=== PATIENT | male | born 1960 | race Caucasian/White ===

== ENCOUNTER 2020-11-13 10:25 | Inpatient (IN) | payer MEDICAID, SELFPAY ==
[2020-11-13] VITALS (8 sets, daily range): BP systolic 117–148; BP diastolic 62–89; PULSE 87–122; RESP 14–18; TEMP 36.6–36.8; O2SAT 95–100; BMI 18.3
--- NOTE | 2020-11-13 13:29 | PC.NURSE ---
pt arrived to room from waiting room at 1328
--- NOTE | 2020-11-13 13:56 | W.ED.NAVMDI ---
Documented by User: CARLOS Velásquez 11/13/20 16:54 HPI - Nausea/Vomiting/Diarrhea General: Chief complaint: Nausea/Vomiting/Diarrhea Stated complaint: weak, N/V Time Seen by Provider: 11/13/20 13:27 History of Present Illness: HPI Narrative: Patient states he has had nausea for the last 2 or 3 months up to a year States is probably because of his teeth. Said he has had some weight loss also. Patient denies alcohol or drug use. Denies illness. And seeing a provider long time. Thinks he might be drinking too much [employer]. Denies problems of bowel or bladder fever chills or other related problems MD elicited complaint: nausea and vomiting (Sporadic) Onset (ago): month(s) Description of vomiting: food contents Associated nausea: Yes Associated abdominal pain: No Severity: mild Associated symtoms: Reports nausea; Denies anxiety, change in vision, chest pain or headache(s) Review of Systems Const: Denies: fever(s), chills or body aches Eyes: Denies: change in vision or blurry vision ENMT: Denies: throat pain or nasal congestion Card: Denies: chest pain or dyspnea on exertion Resp: Denies: dyspnea, productive cough or non-productive cough GI: Reports: nausea, vomiting and heartburn : Denies: difficulty urinating Musc: Denies: extremity pain Skin/Breast: Denies: rash Neuro: Denies: headache(s) Psych: Denies: anxiety or depression Giorgio/Lymph: Denies: easy bruising Physical Exam Const: COMMON NORMALS: no acute distress, average body habitus and patient oriented x3 HENMT: COMMON NORMALS: normocephalic HEAD & SCALP: normal to inspection and normocephalic FACE & SINUS: normal facial exam Eye: COMMON NORMALS: conjunctivae normal GENERAL EYE: appearance normal, both eyes and all related structures CONJUNCTIVA: Yes conjunctivae normal Neck/C-Spine: COMMON NORMALS: no JVD Chest: COMMONS NORMALS: normal inspection of the chest Resp: COMMON NORMALS: normal respiratory effort and clear to auscultation bilaterally AUSCULTATION: clear to auscultation bilaterally Cardio: COMMON NORMALS: no JVD, regular rate and regular rhythm RATE: regular rate RHYTHM: regular rhythm GI: COMMON NORMALS: Normal to inspection, nondistended, normoactive bowel sounds present Extremity: COMMON NORMALS: normal to inspection and full ROM Neuro: COMMON NORMALS: patient oriented x3 Course Vital Signs: Vital signs: Vital Signs Temperature 97.8 F 11/13/20 10:33 Pulse Rate 112 H 11/13/20 15:00 Respiratory Rate 16 11/13/20 15:00 Blood Pressure 124/70 11/13/20 15:00 Pulse Oximetry 95 11/13/20 15:00 MDM - Nausea/Vomiting/Diarrhea Lab Data: Labs: Lab Results 11/13/20 11/13/20 11/13/20 Range/Units 13:32 13:52 13:52 WBC 12.4 H (4.0-10.0) 10^3/ uL RBC 3.53 L (4.1-5.3) 10^6/u L Hgb 10.3 L (11.7-16.6) g/dL Hct 29.3 L (42.0-52.0) % MCV 83.0 (80-94) fL MCH 29.2 (28.0-34.0) pg MCHC 35.2 (30.0-36.0) g/dL RDW 14.8 (12.1-15.1) % Plt Count 230 (130-400) 10^3/c mm MPV 12.7 H (7.4-10.4) fL Neut % (Auto) 92.9 % Lymph % (Auto) 2.3 % Stokes % (Auto) 4.2 % Eos % (Auto) 0.0 % Baso % (Auto) 0.2 % Neut # (Auto) 11.56 H (1.8-7.7) 10^3/u L Lymph # (Auto) 0.3 L (0.8-4.8) 10^3/u L Stokes # (Auto) 0.5 (0.2-0.9) 10^3/u L Eos # (Auto) 0.0 (0.0-0.8) 10^3/u L Baso # (Auto) 0.0 (0.0-0.1) 10^3/u L Nucleated RBC % (a uto) 0 % Nucleated RBCs # 0.0 /100WBC Sodium 133 L (136-145) mmol/L Potassium 3.8 (3.5-5.1) mmol/L Chloride 88 L (98-107) mmol/L Carbon Dioxide 11 L (22-29) mmol/L Anion Gap 37.8 H (5-19) BUN 193 H* (8-23) mg/dL Creatinine 17.0 H* (0.7-1.2) mg/dL GFR Calculation 2.9 L (90-130) mL/min Glucose 136 H (65-115) mg/dL Calculated Osmolal ity 342 H (285-295) mOsm/k g Lactate (0.5-2.2) mmol/L Calcium 9.6 (8.5-10.5) mg/dL Total Bilirubin 0.4 (0.15-1.2) mg/dL AST 5 (0-40) U/L ALT < 5 (0-41) U/L Alkaline Phosphata se 84 (40-130) IU/L Total Protein 7.9 (6.6-8.7) g/dL Albumin 4.2 (3.5-5.2) g/dL Globulin 3.7 (1.3-4.6) g/dL Lipase 1285 H (13-60) U/L Urine Color (Yellow) Urine Appearance (CLEAR) Urine pH (5-7) Ur Specific Gravit y (1.005-1.030) Urine Protein (Negative) Urine Glucose (UA) (Normal) Urine Ketones (Negative) Urine Blood (Negative) Urine Nitrate (Negative) Urine Bilirubin (Negative) Urine Urobilinogen (Negative) mg/dL Ur Leukocyte Chiqui ase (Negative) SARS-CoV-2 Ag (Rap id) Negative (Negative) 11/13/20 11/13/20 Range/Units 13:52 14:48 WBC (4.0-10.0) 10^3/ uL RBC (4.1-5.3) 10^6/u L Hgb (11.7-16.6) g/dL Hct (42.0-52.0) % MCV (80-94) fL MCH (28.0-34.0) pg MCHC (30.0-36.0) g/dL RDW (12.1-15.1) % Plt Count (130-400) 10^3/c mm MPV (7.4-10.4) fL Neut % (Auto) % Lymph % (Auto) % Stokes % (Auto) % Eos % (Auto) % Baso % (Auto) % Neut # (Auto) (1.8-7.7) 10^3/u L Lymph # (Auto) (0.8-4.8) 10^3/u L Stokes # (Auto) (0.2-0.9) 10^3/u L Eos # (Auto) (0.0-0.8) 10^3/u L Baso # (Auto) (0.0-0.1) 10^3/u L Nucleated RBC % (a uto) % Nucleated RBCs # /100WBC Sodium (136-145) mmol/L Potassium (3.5-5.1) mmol/L Chloride (98-107) mmol/L Carbon Dioxide (22-29) mmol/L Anion Gap (5-19) BUN (8-23) mg/dL Creatinine (0.7-1.2) mg/dL GFR Calculation (90-130) mL/min Glucose (65-115) mg/dL Calculated Osmolal ity (285-295) mOsm/k g Lactate 1.2 (0.5-2.2) mmol/L Calcium (8.5-10.5) mg/dL Total Bilirubin (0.15-1.2) mg/dL AST (0-40) U/L ALT (0-41) U/L Alkaline Phosphata se (40-130) IU/L Total Protein (6.6-8.7) g/dL Albumin (3.5-5.2) g/dL Globulin (1.3-4.6) g/dL Lipase (13-60) U/L Urine Color Yellow (Yellow) Urine Appearance Clear (CLEAR) Urine pH 5 (5-7) Ur Specific Gravit y 1.010 (1.005-1.030) Urine Protein Neg (Negative) Urine Glucose (UA) Norm (Normal) Urine Ketones Negative (Negative) Urine Blood Neg (Negative) Urine Nitrate Negative (Negative) Urine Bilirubin Neg (Negative) Urine Urobilinogen Norm (Negative) mg/dL Ur Leukocyte Chiqui ase Negative (Negative) SARS-CoV-2 Ag (Rap id) (Negative) Discharge Plan Discharge Patient Disposition: Admitted As Inpatient Clinical Impression: 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, Acute renal failure, Enlarged prostate, Acute pancreatitis Condition: Stable Coding Level of Care Code ED Insurance Counsel for Chg Fwd Exam Comprehensive Documented by User: Bart Jensen MD 11/13/20 16:58 HPI - Nausea/Vomiting/Diarrhea General: Chief complaint: Nausea/Vomiting/Diarrhea Stated complaint: weak, N/V Time Seen by Provider: 11/13/20 13:27 Course Reevaluation(s): Reevaluation #1: I did discuss at length with patient about findings. He is agreeable for admission to the hospital. Time: 16:50 Consultations: Consultation #1: I did discuss at length with . Hospitalist he is accepted this patient for admission. He will see patient write additional orders. He request consult with Dr. Linda. Urology. Time: 16:50 Consultation #2: I did discuss at length with Dr. Linda. He will see patient as a behavioral health consultant. Vital Signs: Vital signs: Vital Signs Temperature 97.8 F 11/13/20 10:33 Pulse Rate 112 H 11/13/20 15:00 Respiratory Rate 16 11/13/20 15:00 Blood Pressure 124/70 11/13/20 15:00 Pulse Oximetry 95 11/13/20 15:00 MDM - Nausea/Vomiting/Diarrhea Medical Records: Attestation: I reviewed the patient's medical records. Lab Data: Attestation: I reviewed the patient's lab results. Labs: Lab Results 11/13/20 11/13/20 11/13/20 Range/Units 13:32 13:52 13:52 WBC 12.4 H (4.0-10.0) 10^3/ uL RBC 3.53 L (4.1-5.3) 10^6/u L Hgb 10.3 L (11.7-16.6) g/dL Hct 29.3 L (42.0-52.0) % MCV 83.0 (80-94) fL MCH 29.2 (28.0-34.0) pg MCHC 35.2 (30.0-36.0) g/dL RDW 14.8 (12.1-15.1) % Plt Count 230 (130-400) 10^3/c mm MPV 12.7 H (7.4-10.4) fL Neut % (Auto) 92.9 % Lymph % (Auto) 2.3 % Stokes % (Auto) 4.2 % Eos % (Auto) 0.0 % Baso % (Auto) 0.2 % Neut # (Auto) 11.56 H (1.8-7.7) 10^3/u L Lymph # (Auto) 0.3 L (0.8-4.8) 10^3/u L Stokes # (Auto) 0.5 (0.2-0.9) 10^3/u L Eos # (Auto) 0.0 (0.0-0.8) 10^3/u L Baso # (Auto) 0.0 (0.0-0.1) 10^3/u L Nucleated RBC % (a uto) 0 % Nucleated RBCs # 0.0 /100WBC Sodium 133 L (136-145) mmol/L Potassium 3.8 (3.5-5.1) mmol/L Chloride 88 L (98-107) mmol/L Carbon Dioxide 11 L (22-29) mmol/L Anion Gap 37.8 H (5-19) BUN 193 H* (8-23) mg/dL Creatinine 17.0 H* (0.7-1.2) mg/dL GFR Calculation 2.9 L (90-130) mL/min Glucose 136 H (65-115) mg/dL Calculated Osmolal ity 342 H (285-295) mOsm/k g Lactate (0.5-2.2) mmol/L Calcium 9.6 (8.5-10.5) mg/dL Total Bilirubin 0.4 (0.15-1.2) mg/dL AST 5 (0-40) U/L ALT < 5 (0-41) U/L Alkaline Phosphata se 84 (40-130) IU/L Total Protein 7.9 (6.6-8.7) g/dL Albumin 4.2 (3.5-5.2) g/dL Globulin 3.7 (1.3-4.6) g/dL Lipase 1285 H (13-60) U/L Urine Color (Yellow) Urine Appearance (CLEAR) Urine pH (5-7) Ur Specific Gravit y (1.005-1.030) Urine Protein (Negative) Urine Glucose (UA) (Normal) Urine Ketones (Negative) Urine Blood (Negative) Urine Nitrate (Negative) Urine Bilirubin (Negative) Urine Urobilinogen (Negative) mg/dL Ur Leukocyte Chiqui ase (Negative) SARS-CoV-2 Ag (Rap id) Negative (Negative) 11/13/20 11/13/20 Range/Units 13:52 14:48 WBC (4.0-10.0) 10^3/ uL RBC (4.1-5.3) 10^6/u L Hgb (11.7-16.6) g/dL Hct (42.0-52.0) % MCV (80-94) fL MCH (28.0-34.0) pg MCHC (30.0-36.0) g/dL RDW (12.1-15.1) % Plt Count (130-400) 10^3/c mm MPV (7.4-10.4) fL Neut % (Auto) % Lymph % (Auto) % Stokes % (Auto) % Eos % (Auto) % Baso % (Auto) % Neut # (Auto) (1.8-7.7) 10^3/u L Lymph # (Auto) (0.8-4.8) 10^3/u L Stokes # (Auto) (0.2-0.9) 10^3/u L Eos # (Auto) (0.0-0.8) 10^3/u L Baso # (Auto) (0.0-0.1) 10^3/u L Nucleated RBC % (a uto) % Nucleated RBCs # /100WBC Sodium (136-145) mmol/L Potassium (3.5-5.1) mmol/L Chloride (98-107) mmol/L Carbon Dioxide (22-29) mmol/L Anion Gap (5-19) BUN (8-23) mg/dL Creatinine (0.7-1.2) mg/dL GFR Calculation (90-130) mL/min Glucose (65-115) mg/dL Calculated Osmolal ity (285-295) mOsm/k g Lactate 1.2 (0.5-2.2) mmol/L Calcium (8.5-10.5) mg/dL Total Bilirubin (0.15-1.2) mg/dL AST (0-40) U/L ALT (0-41) U/L Alkaline Phosphata se (40-130) IU/L Total Protein (6.6-8.7) g/dL Albumin (3.5-5.2) g/dL Globulin (1.3-4.6) g/dL Lipase (13-60) U/L Urine Color Yellow (Yellow) Urine Appearance Clear (CLEAR) Urine pH 5 (5-7) Ur Specific Gravit y 1.010 (1.005-1.030) Urine Protein Neg (Negative) Urine Glucose (UA) Norm (Normal) Urine Ketones Negative (Negative) Urine Blood Neg (Negative) Urine Nitrate Negative (Negative) Urine Bilirubin Neg (Negative) Urine Urobilinogen Norm (Negative) mg/dL Ur Leukocyte Chiqui ase Negative (Negative) SARS-CoV-2 Ag (Rap id) (Negative) Imaging Data^: CT Abd/Pel: Attestation: I personally reviewed and interpreted this imaging study as follows: Radiologist's impression: FINDINGS: ABDOMEN: unenhanced liver, spleen, and pancreas are unremarkable. There are multiple containing cholesterol. The adrenal glands are unremarkable. There is profound bilateral obstructive uropathy. This is associated with gross dilatation of the urinary bladder which extends to the level of L4. No abdominal mass, adenopathy, free fluid, or focal fluid collection. No bowel abnormality. Normal appendix not readily identified. No bony abnormality. PELVIS: Grossly distended urinary bladder, markedly dilated distal ureters. Significantly enlarged prostate gland with a large median lobe. No other pelvic mass, adenopathy, or focal fluid collection, or free fluid. No bony abnormality. CT/CT abdomen pelvis wo con [id number] IMPRESSION: Profound bilateral obstructive uropathy secondary to gross bladder distention which may be due to prostatic hypertrophy, prostatic carcinoma, or a transitional cell carcinoma that is not appreciated on this unenhanced examination. Discharge Plan Discharge Patient Disposition: Admitted As Inpatient Clinical Impression: 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, Acute renal failure, Enlarged prostate, Acute pancreatitis Condition: Stable Coding Level of Care Code ED Insurance Counsel for Chg Fwd Exam Comprehensive
[2020-11-13] MEDS: sodium chloride 0.9% 1,000 ML 999 ML IV ×2 (14:03→14:42)
[2020-11-13] MEDS: ondansetron 2 mg/ML SDV 2 mL 4 MG IVP (14:03)
[2020-11-13 14:06] LABS: Basophils % 0.2 %; Hematocrit 29.3 % (42.0-52.0); Hemoglobin 10.3 g/dL (11.7-16.6); Lymphocytes # 0.3 10^3/uL (0.8-4.8); Lymphocytes % 2.3 %; Mean Corpuscular HGB Conc 35.2 g/dL (30.0-36.0); Mean Corpuscular Hemoglobin 29.2 pg (28.0-34.0); Mean Platelet Volume 12.7 fL (7.4-10.4); Monocytes # 0.5 10^3/uL (0.2-0.9); Monocytes % 4.2 %; Neutrophils # 11.56 10^3/uL (1.8-7.7); Neutrophils % 92.9 %; Nucleated Red Blood Cells % 0 %; Platelet Count 230 10^3/cmm (130-400); Red Blood Count 3.53 10^6/uL (4.1-5.3); Red Cell Distribution Width 14.8 % (12.1-15.1); White Blood Count 12.4 10^3/uL (4.0-10.0)
[2020-11-13] MEDS: lidocaine 2% viscous 15 ML, aluminum-mag hydrox-simethicon 30 ML, sucralfate oral liq 1 GM PO (14:11)
[2020-11-13 14:14] LABS: Lactate (Lactic Acid level) 1.2 mmol/L (0.5-2.2)
[2020-11-13 14:15] LABS: Alanine Aminotransferase < 5 U/L (0-41); Albumin Level 4.2 g/dL (3.5-5.2); Alkaline Phosphatase 84 IU/L (40-130); Anion Gap 37.8 (5-19); Aspartate Amino Transferase 5 U/L (0-40); Calcium 9.6 mg/dL (8.5-10.5); Carbon Dioxide 11 mmol/L (22-29); Chloride 88 mmol/L (98-107); Globulin 3.7 g/dL (1.3-4.6); Glomerular Filtration Rate 2.9 mL/min (90-130); Glucose 136 mg/dL (65-115); Potassium 3.8 mmol/L (3.5-5.1); Sodium 133 mmol/L (136-145); Total Bilirubin 0.4 mg/dL (0.15-1.2); Total Protein 7.9 g/dL (6.6-8.7)
--- NOTE | 2020-11-13 14:25 | XR_ITS ---
WS: [id number] XR KUB portable [id number] REASON FOR EXAM: nausea FINDINGS: No free air or retroperitoneal air. The bowel gas pattern is unremarkable with no findings of bowel obstruction. No urinary tract calculi. No mass identified. XR/XR KUB portable [id number] IMPRESSION: No acute abdominal abnormality.
[2020-11-13 14:29] LABS: Blood Urea Nitrogen 193 mg/dL (8-23); Lipase 1285 U/L (13-60); Osmolality Calculated 342 mOsm/kg (285-295)
--- NOTE | 2020-11-13 14:31 | CT_ITS ---
WS: [id number] CT abdomen pelvis wo con [id number] REASON FOR EXAM: abd discomfort, High BUN/CR IV CONTRAST ADMINISTERED: Noncontrast TOTAL EXAM DLP: 628.[address] scans at [facility] use at least one of these dose optimization techniques: automat ed exposure control; mA and/or kV adjustment per patient size (includes targeted exams where dose is matched to clinical indication); or iterative reconstruction. FINDINGS: ABDOMEN: unenhanced liver, spleen, and pancreas are unremarkable. There are multiple containing cholesterol. The adrenal glands are unremarkable. There is profound bilateral obstructive uropathy. This is associated with gross dilatation of the uri nary bladder which extends to the level of L4. No abdominal mass, adenopathy, free fluid, or focal fluid collection. No bowel abnormality. Normal appendix not readily identified. No bony abnormality. PELVIS: Grossly distended urinary bladder, markedly dilated distal ureters. Significantly enlarged prostate g land with a large median lobe. No other pelvic mass, adenopathy, or focal fluid collection, or free fluid. No bony abnormality. CT/CT abdomen pelvis wo con [id number] IMPRESSION: Profound bilateral obstructive uropathy secondary to gross bladder distention w hich may be due to prostatic hypertrophy, prostatic carcinoma, or a transitiona l cell carcinoma that is not appreciated on this unenhanced examination.
[2020-11-13 14:34] LABS: SARS Covid-2 Antigen Negative (Negative)
[2020-11-13 14:52] LABS: Add Urine Microscopic? NO; Charge for UA Resulting for Rev
[2020-11-13 15:03] LABS: Bilirubin Urine Neg (Negative); Blood Urine Neg (Negative); Glucose Urine UA Norm (Normal); Ketones Urine Negative (Negative); Leukocyte Esterase Urine Negative (Negative); Nitrate Urine Negative (Negative); Protein Urine Neg (Negative); Urine Appearance Clear (CLEAR); Urine Color Yellow (Yellow); Urobilinogen Urine Norm (Negative); pH Urine 5 (5-7)
--- NOTE | 2020-11-13 16:49 | P.HP_ITS ---
Providers/Chief Complaint Chief Complaint: weak, N/V History of Present Illness Kashmir West is a 59 year old male without significant past medical surgical history presented today with chief complaint of recurrent nausea and vomiting. Patient stating that symptoms started about 2 months ago when he started experiencing multiple episodes of nausea and vomiting which he initially attributed to eating chicken at discharge. His symptoms never got resolved, he did not spike any temperature, no diarrhea was noticed. In last 30 days he has not been able to even drink a sip of water which he is describing as complete fasting for last 30 days. He did not call ambulance to come to the hospital today*found to bring him to the ER. He is endorsing nocturia, decreased urine output, hesitancy, discomfort in hypogastric and midepigastric region. Denies smoking and alcohol. Does not use any medications at home. Few days ago when he woke up at night to go to the bathroom he passed out and hit his head. Diagnosis in the ER revealed JAVED, obstructive uropathy secondary to bladder outlet obstruction due to BPH, CT abdomen pelvis showed severely distended bladder up to L4, digital rectal exam consistent with nodular prostate, nontender Dr. Linda consulted, Friedman catheter to be placed Review of Systems Const: Reports: chills, body aches, change in appetite, change in weight, fa tigue, malaise and night sweats Eyes: Denies: change in vision ENMT: Denies: throat pain Card: Denies: chest pain Resp: Denies: dyspnea GI: Reports: abdominal pain, nausea and vomiting : Reports: difficulty urinating, urinary urgency, difficulty starting urination and nocturia Musc: Reports: muscle cramps, muscle weakness and decrease in muscle mass Skin/Breast: Denies: rash Neuro: Denies: headache(s) Psych: Denies: anxiety Endo: Denies: polyuria Giorgio/Lymph: Denies: easy bruising All/Imm: Denies: urticaria Medications/Allergies Home Medications Medication Instructions Recorded Confirmed Last Taken Type No Known Home Medications 11/13/20 11/13/20 Unknown History Allergies Allergy/AdvReac Type Severity Reaction Status Date / Time No Known Allergies Allergy Unverified 11/13/20 14:32 PFSH Acute PFSH: Medical History No pertinent past medical history Surgical History No pertinent past surgical history Family History Other Family history non-contributory Social History Smoking and tobacco status: never smoked Alcohol intake: never Substance/Drug Use: never Household members: spouse Housing: House Vitals/I&O/Wt Last Vital Signs Temp 97.8 F 11/13/20 10:33 Pulse 112 H 11/13/20 15:00 Resp 16 11/13/20 15:00 BP 124/70 11/13/20 15:00 Pulse Ox 95 11/13/20 15:00 Weight last 48 hrs Weight 61.235 kg Physical Exam Narrative: EXAM NARRATIVE: male who appears more than stated age Extremely malnourished and emaciated muscle mass loss Clinically severely dehydrated S1, S2 sinus rhythm No acute respite distress no active audible stridor or wheezing Abdomen flat, mild tenderness in hypogastric and mid epigastric region Lower extremity no edema in extremities Digital rectal exam revealed nontender nodular prostate EOMI, PERRLA Flat affect Poor hygiene unkept appearance Data : 11/13/20 13:52 11/13/20 13:52 A&P Assessment and plan (1) 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: Status: Acute (2) Acute renal failure: Status: Acute (3) Enlarged prostate: Status: Acute (4) Acute pancreatitis: Status: Acute Additional A&P Information Bladder outlet obstruction secondary to enlarged prostate Nodular prostate, nontender UA unremarkable Dr. Linda consulted We will keep him n.p.o. after midnight in anticipation of cystoscopy tomorrow CT abdomen pelvis showed concerning changes of the large prostate however cancer not ruled out No evidence of stone Obtain PSA level JAVED secondary to postobstructive uropathy Friedman catheter to be placed, distended bladder, Anticipating polyuria we will keep him on D5 LR for now Does not use any medications at home Increased lipase with epigastric pain Concern for pancreatitis, Does not drink or smoke Trend lipase level Etiology has not been identified yet We will start him on GI soft diet Emaciated malnourished protein calorie malnourishment Concern for refeeding syndrome check magnesium and phosphorus level Consult dietitian once he is stable able to tolerate Leukocytosis with tachycardia seems secondary to dehydration Sepsis unlikely on admission Full code GI soft diet Avoid DVT prophylaxis in anticipation of cystoscopy tomorrow Attestations Medical Necessity Statement*: Anticipating stay in the hospital because more than 2 midnights for above-mentioned multiple acute reasons Time Spent in Patient Care: 16 - 35 minutes Coding Level of Care Code Acute Flavoring Machine Operator for Chg Fwd Diagnoses 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 N13.9 Acute renal failure N17.9 Enlarged prostate N40.0 Acute pancreatitis K85.90
--- NOTE | 2020-11-13 17:59 | P.CONIM_ITS ---
Providers/Reason For Consult Consulting Physician/Specialty*: Urology/Linda Reason for Consult*: Urinary retention, abnormal prostate exam, bilateral severe chronic hydronephrosis secondary to bladder outlet obstruction Attending Physician: Dr. Luna History of Present Illness History of Present Illness Kashmir West is a 59 year old male admitted through the emergency department for renal failure secondary to chronic bladder outlet obstruction. He presented with severe nausea and vomiting for several months with resulting anorexia. Creatinine was measured at 17. BUN: 193. Potassium was only 3.8. Lipase elevated at 1285. Urinalysis was unremarkable. No evidence of infection. CT scan showed a hugely distended high-pressure bladder configuration with severe cellule and trabeculation identified as well as bilateral hydronephrosis of chronic clearance. He has had some parenchymal loss because of this. His prostate was enlarged as well. No obvious pelvic or abdominal lymphadenopathy. No identified metastatic bony disease. Physical exam by the hospitalist service felt was described as a nodular prostate. PSA is pending. Alkaline phosphatase was normal Catheter placement ordered but difficulty experienced by the nursing staff and trying to place the catheter. Patient denies a history of prior catheterization. He was unaware that he was having so much trouble voiding but did complain of some decreased force of stream hesitancy intermittency and at times feeling of incomplete emptying. He has noticed a distention of his lower abdomen which was also pointed out and recognized by his .. Has not been on any medications for his prostate. PROCEDURE: Difficult catheter placement Indications: Failure of nursing staff to be out of place catheter. Technique: Coud? catheter with 2% lidocaine jelly Findings: Tight at the prostate but able to manipulate into the bladder with good function. 10 cc placed in the balloon. Draining well. Approximately 2000 cc drained consistent with CT scan findings. Recommendations: 1. Catheter dependent drainage for prolonged period for recovery of possible bladder contractile force May require irrigation regularly due to post decompression of chronically distended bladder 2. No particular additional treatment required at this time. 3. PSA is pending. Will need those results Review of Systems Const: Reports: change in appetite, change in weight, fatigue and malaise Eyes: Denies: change in vision, blurry vision or increased production of tears ENMT: Denies: throat pain, odynophagia or hoarseness Card: Reports: chest pain and palpitations Resp: Denies: dyspnea or wheezing GI: Reports: abdominal pain, nausea, vomiting, early satiety and other (Distended abdomen) : Reports: urinary hesitancy and difficulty starting urination; Denies: flank pain Musc: Denies: joint redness or joint warmth Skin/Breast: Denies: rash, new lesions or jaundice Neuro: Denies: confusion Psych: Reports: anxiety and depression Endo: Denies: flushing Giorgio/Lymph: Denies: easy bruising, easy bleeding or enlarged lymph nodes All/Imm: Denies: urticaria or acute wheezing Meds/Allergies Home Medications and Allergies Home Medications Medication Instructions Recorded Confirmed Last Taken Type No Known Home Medications 11/13/20 11/13/20 Unknown History Allergies Allergy/AdvReac Type Severity Reaction Status Date / Time No Known Allergies Allergy Unverified 11/13/20 14:32 PFSH Acute PFSH: Medical History Benign prostatic hyperplasia with urinary retention Bilateral hydronephrosis No pertinent past medical history Surgical History History of tonsillectomy No pertinent past surgical history Family History Other Family history non-contributory Social History Smoking and tobacco status: never smoked Alcohol intake: never Substance/Drug Use: never Household members: spouse Housing: House Vitals/I&O/Wt Last Vital Signs Temp 97.8 F 11/13/20 10:33 Pulse 88 11/13/20 17:00 Resp 14 11/13/20 17:00 BP 142/89 11/13/20 17:00 Pulse Ox 100 11/13/20 17:00 Weight last 48 hrs Weight 135 lb Physical Exam Const: COMMON NORMALS: no acute distress and alert GENERAL APPEARANCE: well developed; not in distress NUTRITIONAL APPEARANCE: cachectic ORIENTATION/CONSCIOUSNESS: not confused HENMT: COMMON NORMALS: normocephalic and atraumatic HEAD & SCALP: norm ocephalic and atraumatic Eye: COMMON NORMALS: conjunctivae normal and no scleral icterus CONJUNCTIVA: Yes conjunctivae normal Neck/C-Spine: COMMON NORMALS: full ROM Lymph: LYMPHATIC: no lymphadenopathy noted and no lymphedema noted Resp: COMMON NORMALS: normal respiratory effort EFFORT & INSPECTION: No labored and No Actively coughing Cardio: COMMON NORMALS: regular rate and regular rhythm RATE: regular rate RHYTHM: regular rhythm GI: COMMON NORMALS: Soft to palpation PALPATION: Yes Soft to palpation and No Tenderness to palpation present (GI) RECTAL EXAM: Yes visual inspection normal, Yes normal sphincter tone and No mass OTHER: Palpable lower abdominal mass that decompressed after catheter was placed. SHAVONNE: Prostate is 5+ in size but per my exam it is not nodular. It is relatively soft. : COMMON NORMALS: Yes no CVA tenderness BLADDER/KIDNEY EXAM: Yes no CVA tenderness MALE GROIN/PERINEUM EXAM: No ecchymosis and No hernia PENIS: normal penis MEATUS: meatus normal, no meatla discharge and No Blood at meatus present SCROTUM: Yes testes descended bilaterally, No edematous and No scrotal swelling TESTES: No absent testicle, No testicular tenderness, No testicular mass, Yes epididymides normal and No epididymal tenderness Back/Pelvis: COMMON NORMALS: no CVA tenderness Extremity: COMMON NORMALS: no clubbing, cyanosis or edema Neuro: COMMON NORMALS: no focal motor deficits SENSORIUM/ORIENTATION: Yes alert Psych: COMMON NORMALS: mental status grossly normal APPEARANCE: Yes grossly normal ATTITUDE: Yes calm and Yes engaged Skin: COMMON NORMALS: no rashes or lesions noted and no jaundice GENERAL SKIN EXAM: no rashes or lesions noted A&P Assessment and plan (1) Benign prostatic hyperplasia with urinary retention: Very large but benign feeling prostate with chronic bladder outlet obstructive changes in the bladder including severe distention and bilateral upper urinary tract hydronephrosis secondary to bladder outlet obstruction. No acute surgical intervention is planned. He can have a diet as preferred by hospitalist service. Status: Acute (2) Bilateral hydronephrosis: Appears chronic. Status: Acute (3) Obstructive uropathy: Severe renal failure with a creatinine of 17. Catheter placed. 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
[2020-11-13 18:51] LABS: Amylase 238 U/L (28-100); Anion Gap 31.6 (5-19); Calcium 8.6 mg/dL (8.5-10.5); Carbon Dioxide 12 mmol/L (22-29); Chloride 97 mmol/L (98-107); Glomerular Filtration Rate 3.3 mL/min (90-130); Glucose 121 mg/dL (65-115); Potassium 3.6 mmol/L (3.5-5.1); Sodium 137 mmol/L (136-145)
[2020-11-13 18:57] LABS: Osmolality Calculated 352 mOsm/kg (285-295)
[2020-11-13 18:58] LABS: Blood Urea Nitrogen 199 mg/dL (8-23); Procalcitonin 0.62 ng/mL (0-0.5)
[2020-11-13] MEDS: dextrose 5%-lactated ringers 1,000 ML 75 ML IV (22:18)
[2020-11-14 04:00] VITALS: BP 118/84; PULSE 94; RESP 16; TEMP 36.8; O2SAT 99
[2020-11-14 06:25] LABS: Basophils % 0.2 %; Eosinophils # 0.1 10^3/uL (0.0-0.8); Eosinophils % 1.1 %; Hematocrit 22.8 % (42.0-52.0); Hemoglobin 7.9 g/dL (11.7-16.6); Lymphocytes # 0.5 10^3/uL (0.8-4.8); Lymphocytes % 4.9 %; Mean Corpuscular HGB Conc 34.6 g/dL (30.0-36.0); Mean Corpuscular Hemoglobin 28.9 pg (28.0-34.0); Mean Corpuscular Volume 83.5 fL (80-94); Mean Platelet Volume 12.1 fL (7.4-10.4); Monocytes # 0.5 10^3/uL (0.2-0.9); Monocytes % 5.4 %; Neutrophils # 8.62 10^3/uL (1.8-7.7); Nucleated Red Blood Cells % 0 %; Platelet Count 176 10^3/cmm (130-400); Red Blood Count 2.73 10^6/uL (4.1-5.3); Red Cell Distribution Width 14.7 % (12.1-15.1); White Blood Count 9.8 10^3/uL (4.0-10.0)
[2020-11-14 06:38] LABS: Anion Gap 28.1 (5-19); Calcium 8.8 mg/dL (8.5-10.5); Carbon Dioxide 13 mmol/L (22-29); Chloride 98 mmol/L (98-107); Glomerular Filtration Rate 3.6 mL/min (90-130); Glucose 145 mg/dL (65-115); Magnesium 2.6 mg/dL (1.7-2.3); Potassium 3.1 mmol/L (3.5-5.1); Sodium 136 mmol/L (136-145)
--- NOTE | 2020-11-14 06:48 | PC.NURSE ---
Pt catheter draining appropriately all evening. Approximately 2000ml urine out. Urine remained dark, at the beginning of the night with trace blood, no clots noted. Urine currently yellow with trace blood, again no clots. Pt NPO since approx 2am was tolerating ice chips fine, no N/V.
[2020-11-14 07:14] LABS: Blood Urea Nitrogen 190 mg/dL (8-23); Lipase 1027 U/L (13-60); Osmolality Calculated 348 mOsm/kg (285-295); Phosphorus 9.3 mg/dL (2.5-4.5)
[2020-11-14 07:31] VITALS: BP 119/77; PULSE 82; RESP 16; TEMP 36.4; O2SAT 96
[2020-11-14] MEDS: dextrose 5%-lactated ringers 1,000 ML 75 ML IV (07:44)
--- NOTE | 2020-11-14 10:22 | PC.CHAP ---
Pastoral Care Encounter/Spiritual Assessment Type of Contact [] Declined epic radiant analyst visit [] Patient/Family/Request visit [] Outpatient visit [] Follow-up visit [] Physician referral [] Code/Alert [x] Routine visit [] Staff referral [] Actively dying [] Patient sleeping [] Family support [] [] Out of room [] Palliative care [] [x] Receiving care in room [] Pre-surgical visit [] Trauma [] Long length of stay [] ICU visit [] Other: Relational/Emotional Strength [] Patient feels connected with others/family/visitors/staff [] Distress [] Loneliness/isolation [] Abandonment Spirituality of Patient [] Person of Emilie [] Attends Yazidism of their Emilie [] Believes in Prayer [] Reads Bible or Yazidi materials [] There are Spiritual issues to be addressed Land Leasing Examiner Interventions [] Prayer [] Active listening [] Non-anxious presence [] Spiritual/emotional support [] Crisis/trauma care [] Spiritual counseling [] Bereavement support [] Provided bereavement packet [] Provided Bible/devotional materials [] Provided toy/stuffed animal, coloring book to patient or family member [] Provided Communion [] Anointing/[place] [] Salvation [] Completed spiritual assessment [] Other: Impact on Illness or Injury [] Angry [] Fearful [] Anxious [] Often cries [] Exhaustion [] Unable to work [] Unable to attend shinto [] Unable to walk/stand [] Unable to read [] Unable to drive [] Unable to eat/drink [] Unable to sleep [] Unable to be with family [] Patient intubated [] Other: Summary Time spent with patient
[2020-11-14 10:59] VITALS: BP 111/74; PULSE 102; RESP 18; TEMP 36.4; O2SAT 100
--- NOTE | 2020-11-14 14:57 | P.PN_ITS ---
Subjective Subjective: Interval history: In total around 3L urine output in last 12 to 16 hours, afebrile, leukocytosis improved hemoglobin 7.9 however no active signs of hematuria dietary recommendations appreciated, patient not endorsing any new complaints still not feeling hungry, limited activity Vitals/I&O/Wt Last Vital Signs Temp 97.5 F L 11/14/20 10:59 Pulse 102 H 11/14/20 10:59 Resp 18 11/14/20 10:59 BP 111/74 11/14/20 10:59 Pulse Ox 100 11/14/20 10:59 11/13/20 11/14/20 11/14/20 22:59 06:59 14:59 Intake Total 2119 947.5 / 947.5 Output Total 2049 Balance 2119 -2049 947.5 / 947.5 Weight last 48 hrs Weight 61.235 kg Physical Exam Narrative: EXAM NARRATIVE: Malnourished cachectic with muscle mass loss male who appears more than stated age Has not been able to eat much Afebrile No active hematuria Urine draining in the back without any signs of bleeding Abdomen soft flat nontender S1, S2 without any signs of murmur or fluid overload, Severe dehydration Protein calorie malnourishment Lower extremity no edema Urinary Catheter Management^: Coude: Cath Placed During This Visit: yes Reason for Continuing Indwelling Catheter: Acute Urinary Retention or Obstruction Urinary Catheter Date of Insertion: 11/13/20 Urinary Catheter Time of Insertion: 18:30 Data : 11/14/20 06:10 11/14/20 06:10 Micro: Microbiology 11/13/20 18:19 Blood Culture - Preliminary Blood SPECIMEN COLLECTED 11/13/20 18:15 Blood Culture - Preliminary Blood SPECIMEN COLLECTED A&P Assessment and plan (1) Obstructive uropathy: Status: Acute (2) Bilateral hydronephrosis: Status: Acute (3) Benign prostatic hyperplasia with urinary retention: Status: Acute (4) JAVED (acute kidney injury): Status: Acute (5) Acute renal failure: Status: Acute (6) Enlarged prostate: Status: Acute (7) Acute pancreatitis: Status: Acute (8) Anemia: Status: Acute (9) Hyperphosphatemia: Status: Acute Additional A&P Information Bladder outlet obstruction -Due to BPH 4 L urine output noted Appreciate Dr. Linda's recommendations, as per Dr. Linda his prostate is nonnodular, awaiting PSA JAVED postobstructive uropathy Creatinine seems to be improving Nephro consulted for assistance, will need phosphate binder for hyperphosphatemia Increased lipase CT abdomen without active signs of pancreatitis, will check lipase level Check triglyceride Patient does not use any medications, nonalcoholic, non-smoker Emaciated malnourished Risk of refeeding syndrome check mag phosphorus level on daily basis Dietary recommendations appreciated Continue clear liquid for now Tachycardia secondary to dehydration seems to be improved leukocytosis improved no active sepsis DVT prophylaxis to be avoided noted anemia today however no active bleeding noticed, repeat H&H Full code Attestations Medical Necessity Statement*: Continue medical management for above-mentioned multiple acute issues Time Spent in Patient Care: 16 - 35 minutes Coding Level of Care Code Acute Director Of Fundraising for [facility] Fwd Diagnoses Obstructive uropathy N13.9 Bilateral hydronephrosis N13.30 Benign prostatic hyperplasia with urinary retention N40.1; R33.8 JAVED (acute kidney injury) N17.9 Acute renal failure N17.9 Enlarged prostate N40.0 Acute pancreatitis K85.90 Anemia D64.9 Hyperphosphatemia E83.39
[2020-11-14 15:31] VITALS: BP 125/78; PULSE 83; RESP 14; TEMP 36.8; O2SAT 99
--- NOTE | 2020-11-14 15:33 | PC.NUTR ---
Nutrition consult for risk of refeeding syndrome. Unable to obtain clear diet history. Per MD note, pt reports not eating or drinking X [address], pt reports he had 1 tomato one day, and 2 tomatoes the next, and no other po intake during 30 days. However, per nurse, he told her he has been eating well. Pt also told this RD he soaked in a pool for his hydration, and spent some time describing the pool and filter system. States he had some doss, eggs, and milk this AM, however unclear per chart review whether this really occurred. Was able to obtain some meal preferences. Recommend clear liquid trays for supper today and breakfast tomorrow with double broth, no juice or jello per pt preference. Recommend monitor lytes, glucose, Mg, and Phos daily due to risk of refeeding syndrome. Would consider advance to full liquids at lunch tomorrow if tolerating clears well and pending labs, however would begin with half portions. Pt aware of need to advance slowly. Notified MD of recommendations. See full RD assessment for further details.
--- NOTE | 2020-11-14 15:55 | PM.CONSULT ---
Providers/Reason For Consult Consulting Physician/Specialty*: Nephrology Reason for Consult*: Eval for JAVED Attending Physician: Dayami Luna MD History of Present Illness History of Present Illness Mr. West presents to our facility with progressive fatigue, nausea, anorexia with very poor urine output for what sounds like weeks-months prior to hospitalization. On arrival a CT scan showed a hugely distended high-pressure bladder configuration with severe cellule and trabeculation identified as well as bilateral hydronephrosis of chronic clearance. He has had some parenchymal loss because of this. As well as obvious abnormalities in renal function with a BUN of 199 and creatinine of 15. Friedman catheter was placed using Coude by Dr. Linda. Following placement of his Friedman catheter he has had a very robust urine output, producing 800 mL over the last nursing shift. A total of 3350 mL yesterday. Today his creatinine came down from 15-14.2 and BUN is also marginally improved. Potassium is down to 3.1, it was noted that his phosphorus is high at 9.3. He still feels very weak, very unwell with very poor appetite, poor oral intake. His diet has been advanced to clears. He denies any additional OTC nephrotoxic exposures i.e. anti-inflammatories, PPIs etc. He denies extremity edema, shortness of breath or other hypervolemic symptoms. He obviously has some subtle uremic symptoms including nausea, vomiting, anorexia. He denies the more worrisome symptoms including myoclonus, altered mental status, seizures, sharp chest pain. Hemodynamics have been stable following hospitalization. He denies any known medical history, specifically he denies any history of kidney disease, BPH, hypertension, diabetes, vascular disease including heart disease, strokes etc. Review of Systems Narrative: ROS - 12 point review of systems completed per HPI and subjective assessment, this includes Constitutional: !eakness, fatigue Respiratory: No SOB on exertion, comfortable at rest CardioVasc: No chest pain, palpitations Gastrointestinal: No nausea, no vomiting Neurological: No seizures, no AMS Derm: No new rashes, lesions or wounds Immunological: No seasonal and no food allergies Meds/Allergies Home Medications and Allergies Home Medications Medication Instructions Recorded Confirmed Last Taken Type No Known Home Medications 11/13/20 11/13/20 Unknown History Allergies Allergy/AdvReac Type Severity Reaction Status Date / Time No Known Allergies Allergy Unverified 11/13/20 14:32 Current Medications Current Medications Generic Name Dose Route Start Last Admin Trade Name Ike PRN Reason Stop Dose Admin Dextrose/Lactated Ringer's 1,000 mls @ 75 mls/hr 11/13/20 19:54 11/14/20 07:44 Dextrose 5%-Lactated Ringers IV 75 mls/hr .[id number] FLOYD Administration PFSH Acute PFSH: Medical History Benign prostatic hyperplasia with urinary retention Bilateral hydronephrosis No pertinent past medical history Surgical History History of tonsillectomy No pertinent past surgical history Family History Other Family history non-contributory Social History Smoking and tobacco status: never smoked Alcohol intake: never Substance/Drug Use: never Household members: spouse Housing: House Vitals/I&O/Wt Last Vital Signs Temp 98.2 F 11/14/20 15:31 Pulse 83 11/14/20 15:31 Resp 14 11/14/20 15:31 BP 125/78 11/14/20 15:31 Pulse Ox 99 11/14/20 15:31 11/14/20 11/14/20 11/14/20 06:59 14:59 22:59 Intake Total 947.5 / 947.5 Output Total 2049 1300 / 1300 Balance -2049 947.5 / 947.5 -1300 / -352.5 Weight last 48 hrs Weight 61.235 kg Physical Exam Narrative: EXAM NARRATIVE: Constitutional: Awake, comfortable HEENT: Wet mucosa, no jvp, non icteric Lungs: Bilaterally clear without discernible wheeze, rales in all lung zones CVS: S1 S2, no murmurs Abdo: Soft, BS ok Ext 4: Minimal edema, peripheral perfusion with no cyanosis Neurological: Grossly non-focal Urinary Catheter Management^: Coude: Cath Placed During This Visit: yes Reason for Continuing Indwelling Catheter: Acute Urinary Retention or Obstruction Urinary Catheter Date of Insertion: 11/13/20 Urinary Catheter Time of Insertion: 18:30 Data Micro: Micro: Microbiology 11/13/20 18:19 Blood Culture - Pr eliminary Blood SPECIMEN MIRTA ERICKSON 11/13/20 18:15 Blood Culture - Pr eliminary Blood SPECIMEN [facility] DRE A&P Additional A&P Information 1. Renal failure No diagnostic dilemma here, he has been obviously chronically obstructed now for some time. Renal function is already starting to improve, urine output is also starting to improve. The question becomes, the degree of chronic kidney disease that he has sustained. There is no indication for hemodialysis per se at this time I would like to give him the opportunity to recover renal function prior to making any firm determination on renal replacement therapy in the future. It is likely that he will have a postobstructive diuresis hence this volume needs to be replaced, will increase IV fluids to 150 mL/h. Avoid usual nephrotoxic agents. Close monitoring Dose medication for GFR less than 15 2. Electrolytes Potassium drifting down, being replaced, phosphorus obviously elevated. If this remains elevated when he has a good oral intake we will add phosphorus binders. I anticipate this will come down with his own accord his renal function recovers. Anion gap metabolic acidosis, likely secondary to uremia, will also improve its own accord. 3. Obstructive uropathy Dr. Linda's input is appreciated, status post Friedman catheter placement. PSA pending. Likely to need TURP in the future. Defer management of Friedman catheter to Dr. Linda. 4. Anemia likely from chronic disease and renal failure will check iron parameters with view to giving iron/EPO I would like to thank Dr. Luna for this consultation, as always it is a pleasure to follow these cases with you. Greater than 25 minutes was spent in evaluation management of her care including greater than 50% of time in [id number] counseling. 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
[2020-11-14 16:02] LABS: Hematocrit 21.5 % (42.0-52.0); Hemoglobin 7.5 g/dL (11.7-16.6)
[2020-11-14] MEDS: lidocaine 1% 5 ML in potassium chloride premix 100 ML 25 ML IV (16:10)
[2020-11-14] MEDS: lactated ringers 1,000 ML 150 ML IV ×2 (16:10→23:53)
[2020-11-14 16:39] LABS: Amphetamines Screen Urine Negative (Negative); Barbiturates Screen Urine Negative (Negative); Benzodiazepines Screen Urine Negative (Negative); Cocaine Screen Urine Negative (Negative); Opiate Screen Urine Negative (Negative); PCP Screen Urine Negative (Negative); THC Screen Urine Negative (Negative)
[2020-11-14 16:56] LABS: Iron 57 ug/dL (59-158); Percent Saturation 33.5 % (20-50); Total Iron Binding Capacity 170 mcg/dl; Triglycerides 73 mg/dL (0-150); Unsaturated Iron Binding 113 ug/dL (112-347); Uric Acid 18.1 mg/dL (3.4-7.0); Vitamin B12 1099 pg/mL (232-1245)
--- NOTE | 2020-11-14 17:07 | PC.NURSE ---
SHIFT SUMMARY PATIENT HAS DONE WELL TODAY. PATIENT HAS BEEN ALERT AND ORIENTED. 1800ML OF URINE OUTPUT. IT HAS BEEN UNCLEAR IF PATIENT HAS BEEN EATING AND DRINKING AT HOME. TO KEEP FROM CAUSING REFEEDING SYNDROME, PATIENT HAS BEEN STARTED ON A CLEAR LIQUID DIET. TOLERATING WELL AT THIS TIME. NO CONCERNS AT THIS TIME.
[2020-11-14 19:25] VITALS: BP 126/84; PULSE 111; RESP 16; TEMP 37.5; O2SAT 99
[2020-11-14 23:40] VITALS: BP 116/80; PULSE 112; RESP 16; TEMP 37.3; O2SAT 98
[2020-11-15 04:50] VITALS: BP 130/79; PULSE 109; RESP 16; TEMP 37.8; O2SAT 98
[2020-11-15] MEDS: lactated ringers 1,000 ML 150 ML IV ×2 (05:31→12:11)
[2020-11-15 07:09] LABS: Basophils % 0.1 %; Eosinophils % 0.3 %; Hematocrit 21.7 % (42.0-52.0); Hemoglobin 7.5 g/dL (11.7-16.6); Lymphocytes # 0.4 10^3/uL (0.8-4.8); Lymphocytes % 4.3 %; Mean Corpuscular HGB Conc 34.6 g/dL (30.0-36.0); Mean Corpuscular Hemoglobin 28.8 pg (28.0-34.0); Mean Corpuscular Volume 83.5 fL (80-94); Mean Platelet Volume 12.1 fL (7.4-10.4); Monocytes # 0.6 10^3/uL (0.2-0.9); Monocytes % 6.6 %; Neutrophils # 7.92 10^3/uL (1.8-7.7); Neutrophils % 88.4 %; Nucleated Red Blood Cells % 0 %; Platelet Count 164 10^3/cmm (130-400); Red Cell Distribution Width 15.1 % (12.1-15.1)
[2020-11-15 07:42] LABS: Anion Gap 23.2 (5-19); Calcium 8.6 mg/dL (8.5-10.5); Carbon Dioxide 15 mmol/L (22-29); Chloride 103 mmol/L (98-107); Creatinine Clr Calc Pharmacy 5.6699; Glomerular Filtration Rate 4.3 mL/min (90-130); Glucose 124 mg/dL (65-115); Magnesium 2.2 mg/dL (1.7-2.3); Phosphorus 5.9 mg/dL (2.5-4.5); Potassium 3.2 mmol/L (3.5-5.1); Sodium 138 mmol/L (136-145)
[2020-11-15 07:59] VITALS: BP 127/68; PULSE 107; RESP 18; TEMP 37.4; O2SAT 98
[2020-11-15 08:08] LABS: Blood Urea Nitrogen 165 mg/dL (8-23); Lipase 1131 U/L (13-60); Osmolality Calculated 342 mOsm/kg (285-295)
[2020-11-15 08:27] LABS: Triglycerides 71 mg/dL (0-150)
--- NOTE | 2020-11-15 09:46 | PC.CHAP ---
Pastoral Care Encounter/Spiritual Assessment Type of Contact [] Declined clerk telegraph service visit [] Patient/Family/Request visit [] Outpatient visit [] Follow-up visit [] Physician referral [] Code/Alert [x] Routine visit [] Staff referral [] Actively dying [] Patient sleeping [] Family support [] [] Out of room [] Palliative care [] [] Receiving care in room [] Pre-surgical visit [] Trauma [] Long length of stay [] ICU visit [] Other: Relational/Emotional Strength [] Patient feels connected with others/family/visitors/staff [] Distress [] Loneliness/isolation [] Abandonment Spirituality of Patient [x] Person of Emilie [] Attends Latter Day of their Emilie [x] Believes in Prayer [] Reads Bible or Yarsani materials [] There are Spiritual issues to be addressed Assistive Technology Specialist Interventions [x] Prayer [x] Active listening [] Non-anxious presence [] Spiritual/emotional support [] Crisis/trauma care [] Spiritual counseling [] Bereavement support [] Provided bereavement packet [] Provided Bible/devotional materials [] Provided toy/stuffed animal, coloring book to patient or family member [] Provided Communion [] Anointing/[place] [] Salvation [x] Completed spiritual assessment [] Other: Impact on Illness or Injury [] Angry [] Fearful [] Anxious [] Often cries [] Exhaustion [] Unable to work [] Unable to attend uatsdin [] Unable to walk/stand [] Unable to read [] Unable to drive [] Unable to eat/drink [] Unable to sleep [] Unable to be with family [] Patient intubated [] Other: Summary patient having trouble with his mouth hurts Time spent with patient 10 min
[2020-11-15 11:26] VITALS: BP 153/87; PULSE 103; RESP 14; TEMP 37.7; O2SAT 98
[2020-11-15 12:00] VITALS: BP 153/87; PULSE 103; RESP 14; TEMP 37.7; O2SAT 93
--- NOTE | 2020-11-15 13:03 | PM.PN ---
Subjective Subjective: Interval history: Feeling better. Would like some different food. Urine is remained clear. Good urine output. Creatinine continues to decrease. Recommend maintaining Friedman catheter for now. Reviewed potentially converting to self-catheterization after normalization or least plateauing of his renal function. Vitals/I&O/Wt Last Vital Signs Temp 99.8 F H 11/15/20 11:26 Pulse 103 H 11/15/20 11:26 Resp 14 11/15/20 11:26 BP 153/87 11/15/20 11:26 Pulse Ox 98 11/15/20 11:26 11/14/20 11/15/20 11/15/20 22:59 06:59 14:59 Intake Total 2017.5 / 2965.0 965 / 3930.0 1720 / 1720 Output Total 1300 / 1300 2375 / 3675 1500 / 1500 Balance 717.5 / 1665.0 -1410 / 255.0 220 / 220 Physical Exam Const: COMMON NORMALS: no acute distress, alert and well nourished GENERAL APPEARANCE: well kempt and well developed ORIENTATION/CONSCIOUSNESS: not confused Neck/C-Spine: COMMON NORMALS: full ROM Resp: COMMON NORMALS: normal respiratory effort EFFORT & INSPECTION: No labored and No Actively coughing Neuro: SENSORIUM/ORIENTATION: Yes alert Psych: COMMON NORMALS: mental status grossly normal APPEARANCE: Yes well kempt ATTITUDE: Yes calm and Yes engaged Urinary Catheter Management^: Coude: Cath Placed During This Visit: yes Reason for Continuing Indwelling Catheter: Accurate Measurement of Urinary Output in Critically Ill Patients Urinary Catheter Date of Insertion: 11/13/20 Urinary Catheter Time of Insertion: 18:30 Data : 11/15/20 06:11 11/15/20 06:11 Micro: Microbiology 11/13/20 19:07 Urine Culture - Preliminary Urine Catheterized 11/13/20 18:19 Blood Culture - Preliminary Blood NEGATIVE TO DATE 11/13/20 18:15 Blood Culture - Preliminary Blood NEGATIVE TO DATE A&P Assessment and plan (1) Benign prostatic hyperplasia with urinary retention: Catheter drainage functioning well. 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 Hopefully there is enough salvageable function that addressing the underlying obstruction would be beneficial surgically or medically, but it is likely that the bladder is beyond repair. Self-catheterization may be a long-term strategy if that is in fact true. Status: Acute (2) Bilateral hydronephrosis: Appears chronic. Status: Acute (3) Obstructive uropathy: Severe renal failure with a creatinine of 17. Catheter placed. 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
--- NOTE | 2020-11-15 13:04 | P.PN_ITS ---
Subjective Subjective: Interval history: Patient has been able to tolerate some of his clear liquid diet, he wants to try some oranges his advance would be advanced to full liquid today, phosphorus and creatinine improving overnight no events, patient is polyuric with 5 L output Vitals/I&O/Wt Last Vital Signs Temp 99.8 F H 11/15/20 11:26 Pulse 103 H 11/15/20 11:26 Resp 14 11/15/20 11:26 BP 153/87 11/15/20 11:26 Pulse Ox 98 11/15/20 11:26 11/14/20 11/15/20 11/15/20 22:59 06:59 14:59 Intake Total 2017.5 / 2965.0 965 / 3930.0 1720 / 1720 Output Total 1300 / 1300 2375 / 3675 1500 / 1500 Balance 717.5 / 1665.0 -1410 / 255.0 220 / 220 Physical Exam Narrative: EXAM NARRATIVE: Patient was laying supine without any active discomfort breakfast tray at the bedside S1, S2 emaciated malnourished muscle mass loss Unkept appearance Abdomen soft nontender Starvation ketosis EOMI, PERRLA no neurological deficits Patient has not been able to get up from his bed Fatigued and lethargic Urinary Catheter Management^: Coude: Cath Placed During This Visit: yes Reason for Continuing Indwelling Catheter: Accurate Measurement of Urinary Output in Critically Ill Patients Urinary Catheter Date of Insertion: 11/13/20 Urinary Catheter Time of Insertion: 18:30 Data : 11/15/20 06:11 11/15/20 06:11 Micro: Microbiology 11/13/20 19:07 Urine Culture - Preliminary Urine Catheterized 11/13/20 18:19 Blood Culture - Preliminary Blood NEGATIVE TO DATE 11/13/20 18:15 Blood Culture - Preliminary Blood NEGATIVE TO DATE A&P Assessment and plan (1) Hyperphosphatemia: Status: Acute (2) Anemia: Status: Acute (3) Obstructive uropathy: Status: Acute (4) Bilateral hydronephrosis: Status: Acute (5) Benign prostatic hyperplasia with urinary retention: Status: Acute (6) JAVED (acute kidney injury): Status: Acute (7) Acute renal failure: Status: Acute (8) Enlarged prostate: Status: Acute (9) Acute pancreatitis: Status: Acute Additional A&P Information Bladder ultra obstruction secondary to BPH Polyuria with 5 L urine output We will follow up with Dr. Patino's recommendations JAVED: Improving Normocytic anemia: Hemoglobin 7.5 I do believe on 11/13 this was hemoconcentrated will request occult blood test and transfuse if hemoglobin less than 7 tomorrow Acute pancreatitis I believe is secondary to severe starvation ketosis: Will require serum ketones level however urine ketones negative, Hyperphosphatemia: Improving, appreciate nephro recommendations Hypermagnesemia: Today magnesium is normal Severe protein calorie malnourishment Appreciate dietary recommendations, monitor for refeeding syndrome Full code Full liquid diet today DVT prophylaxis contraindicated Attestations Medical Necessity Statement*: Continue medical management for starvation ketosis Time Spent in Patient Care: less than 15 minutes Coding Level of Care Code Acute Photovoltaic Installation Technician for [facility] Fwd Diagnoses Hyperphosphatemia E83.39 Anemia D64.9 Obstructive uropathy N13.9 Bilateral hydronephrosis N13.30 Benign prostatic hyperplasia with urinary retention N40.1; R33.8 JAVED (acute kidney injury) N17.9 Acute renal failure N17.9 Enlarged prostate N40.0 Acute pancreatitis K85.90
[2020-11-15] MEDS: potassium chloride ER 20 mEq Tablet 40 MEQ PO (13:23)
[2020-11-15 13:29] LABS: Ketone (Acetest) Serum Negative (Negative)
--- NOTE | 2020-11-15 15:22 | PM.PN ---
Subjective Subjective: Interval history: No new issues today. [place] is doing well. He is a little confused. Good urine output. Tolerating intravenous fluid well without edema, shortness of breath etc. No overt uremic symptoms. Vitals/I&O/Wt Last Vital Signs Temp 99.8 F H 11/15/20 12:00 Pulse 103 H 11/15/20 12:00 Resp 14 11/15/20 12:00 BP 153/87 11/15/20 12:00 Pulse Ox 93 11/15/20 12:00 11/15/20 11/15/20 11/15/20 06:59 14:59 22:59 Intake Total 965 / 3930.0 1720 / 1720 Output Total 2375 / 3675 1500 / 1500 Balance -1410 / 255.0 220 / 220 Physical Exam Narrative: EXAM NARRATIVE: Constitutional: Awake, comfortable HEENT: Wet mucosa, no jvp, non icteric Lungs: Bilaterally clear without discernible wheeze, rales in all lung zones CVS: S1 S2, no murmurs Abdo: Soft, BS ok Ext 4: Minimal edema, peripheral perfusion with no cyanosis Neurological: Grossly non-focal Urinary Catheter Management^: Coude: Cath Placed During This Visit: yes Reason for Continuing Indwelling Catheter: Accurate Measurement of Urinary Output in Critically Ill Patients Urinary Catheter Date of Insertion: 11/13/20 Urinary Catheter Time of Insertion: 18:30 Data : 11/15/20 06:11 11/15/20 06:11 Micro: Microbiology 11/13/20 19:07 Urine Culture - Preliminary Urine Catheterized 11/13/20 18:19 Blood Culture - Preliminary Blood NEGATIVE TO DATE 11/13/20 18:15 Blood Culture - Preliminary Blood NEGATIVE TO DATE A&P Additional A&P Information 1. Renal failure No diagnostic dilemma here, he has been obviously chronically obstructed now for some time. Renal function is already starting to improve, urine output is also starting to improve. The question becomes, the degree of chronic kidney disease that he has sustained. There is no indication for hemodialysis per se at this time I would like to give him the opportunity to recover renal function prior to making any firm determination on renal replacement therapy in the future. It is likely that he will have a postobstructive diuresis hence this volume needs to be replaced, cont ivf with LR at 75mL/hr Avoid usual nephrotoxic agents. Close monitoring Dose medication for GFR less than 15 2. Electrolytes Potassium being replaced, phos coming down Anion gap metabolic acidosis, likely secondary to uremia, will also improve its own accord. 3. Obstructive uropathy Dr. Linda's input is appreciated, status post Friedman catheter placement. PSA pending. Likely to need TURP in the future. Defer management of Friedman catheter to Dr. Linda. 4. Anemia likely from chronic disease and renal failure iron ok, will give EPO today 20kiu subq x 1 I would like to thank Dr. Luna for this consultation, as always it is a pleasure to follow these cases with you. Greater than 25 minutes was spent in evaluation management of her care including greater than 50% of time in [id number] counseling. Valentin Sorto MD Nephrology [phone] Attestations Medical Necessity Statement*: eval for JAVED Coding Level of Care Code Acute Life Agent for Ashley Cruz
[2020-11-15 16:00] VITALS: BP 120/79; PULSE 106; RESP 17; TEMP 37.6; O2SAT 98
[2020-11-15 16:37] LABS: PSA Free 5.2 ng/mL; PSA Free Percentage NOT CALCULATED % (calc) (>25); PSA Total 15.2 ng/mL (< OR = 4.0)
[2020-11-15 19:10] VITALS: BP 148/83; PULSE 100; RESP 18; TEMP 37.2; O2SAT 99
--- NOTE | 2020-11-15 21:50 | PC.NUTR ---
Nutrition reassessment: Per rounds this AM, pt tolerated clear liquids at breakfast and decision was made to advance to full liquid half portions for lunch. Due to lack of data regarding po intakes and tolerance of of lunch/supper, do not recommend to advance diet further at this time. Recommend continue with half portions of full liquid diet, with bowl of broth on each tray. No juice or jello per pt preference. Recommend continue to monitor lytes, glucose, Mg, and Phos daily due to risk of refeeding syndrome. If diet well tolerated and labs continue improving, can gradually increase portion sizes, and eventually advance to GI soft diet. See full RD assessments for further details.
[2020-11-15] MEDS: mirtazapine 15 mg Tablet PO (22:00)
[2020-11-16] VITALS: BP 142/89; PULSE 109; RESP 18; TEMP 37.9; O2SAT 99
[2020-11-16] MEDS: lactated ringers 1,000 ML 75 ML IV ×2 (01:47→13:22)
[2020-11-16 03:40] VITALS: BP 129/88; PULSE 108; RESP 16; TEMP 37.2; O2SAT 98
[2020-11-16 05:33] LABS: Basophils % 0.2 %; Eosinophils % 0.1 %; Hematocrit 23.6 % (42.0-52.0); Hemoglobin 8.1 g/dL (11.7-16.6); Lymphocytes # 0.7 10^3/uL (0.8-4.8); Lymphocytes % 7.3 %; Mean Corpuscular HGB Conc 34.3 g/dL (30.0-36.0); Mean Corpuscular Hemoglobin 29.2 pg (28.0-34.0); Mean Corpuscular Volume 85.2 fL (80-94); Mean Platelet Volume 11.3 fL (7.4-10.4); Monocytes # 0.8 10^3/uL (0.2-0.9); Monocytes % 8.5 %; Neutrophils # 8.19 10^3/uL (1.8-7.7); Neutrophils % 83.4 %; Nucleated Red Blood Cells % 0 %; Platelet Count 168 10^3/cmm (130-400); Red Blood Count 2.77 10^6/uL (4.1-5.3); Red Cell Distribution Width 15.4 % (12.1-15.1); White Blood Count 9.8 10^3/uL (4.0-10.0)
[2020-11-16 05:53] LABS: Anion Gap 23.5 (5-19); Calcium 8.6 mg/dL (8.5-10.5); Carbon Dioxide 16 mmol/L (22-29); Chloride 106 mmol/L (98-107); Creatinine Clr Calc Pharmacy 6.5422; Glomerular Filtration Rate 5.1 mL/min (90-130); Glucose 124 mg/dL (65-115); Lactate (Lactic Acid level) 0.7 mmol/L (0.5-2.2); Phosphorus 5.3 mg/dL (2.5-4.5); Potassium 3.5 mmol/L (3.5-5.1); Sodium 142 mmol/L (136-145)
[2020-11-16 05:55] LABS: Magnesium 2.1 mg/dL (1.7-2.3)
[2020-11-16 06:01] LABS: Osmolality Calculated 347 mOsm/kg (285-295)
[2020-11-16 06:02] LABS: Lipase 828 U/L (13-60)
[2020-11-16 06:03] LABS: Blood Urea Nitrogen 156 mg/dL (8-23)
--- NOTE | 2020-11-16 07:04 | PM.PN ---
Subjective Subjective: Interval history: no complaints Medications: Reviewed: Yes Vitals/I&O/Wt Last Vital Signs Temp 98.9 F 11/16/20 03:40 Pulse 108 H 11/16/20 03:40 Resp 16 11/16/20 03:40 BP 129/88 11/16/20 03:40 Pulse Ox 98 11/16/20 03:40 11/15/20 11/16/20 11/16/20 22:59 06:59 14:59 Intake Total 720 / 2440 1190 / 3630 Output Total 1050 / 2550 1200 / 3750 Balance -330 / -110 -10 / -120 Physical Exam Const: COMMON NORMALS: no acute distress GENERAL APPEARANCE: cooperative Resp: COMMON NORMALS: clear to auscultation bilaterally AUSCULTATION: clear to auscultation bilaterally Cardio: COMMON NORMALS: regular rhythm and No rub (Cardio) RHYTHM: regular rhythm Extremity: GENERAL: No edema Urinary Catheter Management^: Coude: Cath Placed During This Visit: yes Reason for Continuing Indwelling Catheter: Acute Urinary Retention or Obstruction Urinary Catheter Date of Insertion: 11/13/20 Urinary Catheter Time of Insertion: 18:30 Data : 11/16/20 05:24 11/16/20 05:24 Micro: Microbiology 11/13/20 19:07 Urine Culture - Preliminary Urine Catheterized A&P Additional A&P Information 1. Acute kidney injury due to bladder outlet obstruction. No urgent indication for dialysis. Good urine output. Renal function slowly improving. Continue IVF 2. Metabolic acidosis. Add oral sodium bicarbonate 3. Hypokalemia, replace po 4. Hyperphosphatemia, improved Attestations Medical Necessity Statement*: see above Time Spent in Patient Care: 16 - 35 minutes Coding Level of Care Code Acute Laborer [employer] for Ashley Cruz
[2020-11-16] MEDS: potassium chloride ER 20 mEq Tablet 40 MEQ PO (07:40)
[2020-11-16] MEDS: sodium bicarbonate 650 mg Tablet PO ×3 (07:40→20:14)
[2020-11-16 08:00] VITALS: BP 152/96; PULSE 106; RESP 18; TEMP 36.8; O2SAT 99
[2020-11-16 12:00] VITALS: BP 154/98; PULSE 100; RESP 18; TEMP 36.9; O2SAT 99
[2020-11-16 16:00] VITALS: BP 160/96; PULSE 106; RESP 18; TEMP 36.8; O2SAT 90
--- NOTE | 2020-11-16 16:10 | PM.PN ---
Subjective Subjective: Interval history: No overnight events, patient has been showing good urine output 3.7 L Creatinine improving along with hyperphosphatemia Nephro recommendations appreciated Patient would like to eat and advance his diet however does not have good teeth to chew wants to try mechanical soft diet today Vitals/I&O/Wt Last Vital Signs Temp 98.4 F 11/16/20 12:00 Pulse 100 11/16/20 12:00 Resp 18 11/16/20 12:00 BP 154/98 11/16/20 12:00 Pulse Ox 99 11/16/20 12:00 11/16/20 11/16/20 11/16/20 06:59 14:59 22:59 Intake Total 1190 / 3630 868.75 / 868.75 360 / 1228.75 Output Total 1200 / 3750 1500 / 1500 Balance -10 / -120 -631.25 / -631.25 360 / -271.25 Physical Exam Narrative: EXAM NARRATIVE: elderly male who appears malnourished cachectic Unkept appearance S1, S2 Abdomen soft No acute respite distress Patient is endorsing feeling hungry and wants to eat soft diet Low extremity no edema Friedman catheter draining clear urine Urinary Catheter Management^: Coude: Cath Placed During This Visit: yes Reason for Continuing Indwelling Catheter: Acute Urinary Retention or Obstruction Urinary Catheter Date of Insertion: 11/13/20 Urinary Catheter Time of Insertion: 18:30 Data : 11/16/20 05:24 11/16/20 05:24 A&P Assessment and plan (1) Hyperphosphatemia: Status: Acute (2) Anemia: Status: Acute (3) Obstructive uropathy: Status: Acute (4) Benign prostatic hyperplasia with urinary retention: Status: Acute (5) Bilateral hydronephrosis: Status: Acute (6) JAVED (acute kidney injury): Status: Acute (7) 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: Status: Acute (8) Acute pancreatitis: Status: Acute Additional A&P Information JAVED: Improving, postobstructive uropathy, adequate urine output Appreciate nephro recommendations No acute indication for dialysis Serum ketones negative Metabolic acidosis lactic 0.7, bicarb tablets added by nephro Uric acid 18 no active signs of gout, I do believe this is secondary to dehydration improvement with fluid resuscitation anticipated Hyperphosphatemia: Improving TSH low with normal T4 subclinical TSH value will need follow-up within 6 weeks Pancreatitis: Lipase trending down, normal LFTs alk phosphatase [facility] Dietary recommendations appreciated Attestations Medical Necessity Statement*: Continue medical management for above-mentioned etiology Time Spent in Patient Care: less than 15 minutes Coding Level of Care Code Acute 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
[2020-11-16 20:00] VITALS: BP 146/89; PULSE 102; RESP 17; TEMP 37.4; O2SAT 99
[2020-11-16] MEDS: mirtazapine 15 mg Tablet PO (20:14)
[2020-11-17] VITALS (7 sets, daily range): BP systolic 118–146; BP diastolic 63–89; PULSE 84–112; RESP 14–16; TEMP 36.8–37.7; O2SAT 97–98
[2020-11-17] MEDS: lactated ringers 1,000 ML 75 ML IV (03:00)
[2020-11-17 03:32] LABS: Basophils % 0.3 %; Eosinophils # 0.2 10^3/uL (0.0-0.8); Eosinophils % 1.9 %; Hematocrit 25.1 % (42.0-52.0); Hemoglobin 8.3 g/dL (11.7-16.6); Lymphocytes # 0.8 10^3/uL (0.8-4.8); Lymphocytes % 8.1 %; Mean Corpuscular HGB Conc 33.1 g/dL (30.0-36.0); Mean Corpuscular Hemoglobin 28.6 pg (28.0-34.0); Mean Corpuscular Volume 86.6 fL (80-94); Mean Platelet Volume 11.6 fL (7.4-10.4); Monocytes # 0.9 10^3/uL (0.2-0.9); Neutrophils # 7.62 10^3/uL (1.8-7.7); Neutrophils % 80.1 %; Nucleated Red Blood Cells % 0 %; Platelet Count 185 10^3/cmm (130-400); Red Cell Distribution Width 15.8 % (12.1-15.1); White Blood Count 9.5 10^3/uL (4.0-10.0)
[2020-11-17 03:53] LABS: Phosphorus 4.5 mg/dL (2.5-4.5)
[2020-11-17 03:57] LABS: Alanine Aminotransferase < 5 U/L (0-41); Albumin Level 3.1 g/dL (3.5-5.2); Alkaline Phosphatase 69 IU/L (40-130); Anion Gap 20.7 (5-19); Aspartate Amino Transferase 5 U/L (0-40); Calcium 8.9 mg/dL (8.5-10.5); Carbon Dioxide 18 mmol/L (22-29); Chloride 109 mmol/L (98-107); Globulin 3.8 g/dL (1.3-4.6); Glomerular Filtration Rate 5.8 mL/min (90-130); Glucose 124 mg/dL (65-115); Magnesium 1.9 mg/dL (1.7-2.3); Potassium 3.7 mmol/L (3.5-5.1); Sodium 144 mmol/L (136-145); Total Bilirubin 0.3 mg/dL (0.15-1.2); Total Protein 6.9 g/dL (6.6-8.7)
[2020-11-17 04:13] LABS: Osmolality Calculated 345 mOsm/kg (285-295)
[2020-11-17 04:14] LABS: Blood Urea Nitrogen 141 mg/dL (8-23)
--- NOTE | 2020-11-17 12:04 | PC.CHAP ---
Pastoral Care Encounter/Spiritual Assessment Type of Contact [] Declined pipeline gang supervisor visit [] Patient/Family/Request visit [] Outpatient visit [xx] Follow-up visit [] Physician referral [] Code/Alert [xx] Routine visit [] Staff referral [] Actively dying [] Patient sleeping [] Family support [] [] Out of room [] Palliative care [] [] Receiving care in room [] Pre-surgical visit [] Trauma [xx] Long length of stay [] ICU visit [] Other: Relational/Emotional Strength [xx] Patient feels connected with others/family/visitors/staff [] Distress [] Loneliness/isolation [] Abandonment Spirituality of Patient [] Person of Emilie [] Attends Scientology of their Emilie [xx] Believes in Prayer [] Reads Bible or Sabianist materials [] There are Spiritual issues to be addressed Shank Faker Interventions [xx] Prayer [xx] Active listening [xx] Non-anxious presence [] Spiritual/emotional support [] Crisis/trauma care [] Spiritual counseling [] Bereavement support [] Provided bereavement packet [] Provided Bible/devotional materials [] Provided toy/stuffed animal, coloring book to patient or family member [] Provided Communion [] Anointing/[place] [] Salvation [xx] Completed spiritual assessment [] Other: Impact on Illness or Injury [] Angry [] Fearful [] Anxious [] Often cries [] Exhaustion [xx] Unable to work [] Unable to attend confucianist [] Unable to walk/stand [] Unable to read [] Unable to drive [xx] Unable to eat/drink [] Unable to sleep [] Unable to be with family [] Patient intubated [] Other: Summary Patient stated he is not able to keep food down. He is not feeling well. He hopes his will visit today. Time spent with patient 6 minutes
--- NOTE | 2020-11-17 14:11 | PM.PN ---
Subjective Subjective: Interval history: Patient was seen and examined this morning, he wants to have his diet advanced he is very happy with his oranges, diet was modified yesterday Adequate urine output with improvement in creatinine magnesium and phosphorus level Patient is looking forward to go home Vitals/I&O/Wt Last Vital Signs Temp 98.4 F 11/17/20 11:56 Pulse 84 11/17/20 11:56 Resp 14 11/17/20 11:56 BP 118/63 11/17/20 11:56 Pulse Ox 97 11/17/20 11:56 11/16/20 11/17/20 11/17/20 22:59 06:59 14:59 Intake Total 600 / 1468.75 1000 / 2468.75 1898.75 / 1898.75 Output Total 2050 / 3550 Balance 600 / -31.25 -1050 / -1081.25 1898.75 / 1898.75 Physical Exam Narrative: EXAM NARRATIVE: Patient was laying supine without any active discomfort Food tray in front of him Oranges at the bedside No chest discomfort No signs of peritonitis Lower extremity pain no edema No signs of ischemia gangrene or ulcer EOMI, PERRLA Poor dental hygiene edentulous Urinary Catheter Management^: Coude: Cath Placed During This Visit: yes Reason for Continuing Indwelling Catheter: Acute Urinary Retention or Obstruction Urinary Catheter Date of Insertion: 11/13/20 Urinary Catheter Time of Insertion: 18:30 Data : 11/17/20 02:58 11/17/20 02:58 Micro: Microbiology 11/13/20 19:07 Urine Culture - Final Urine Catheterized A&P Assessment and plan (1) Hyperphosphatemia: Status: Acute (2) Anemia: Status: Acute (3) Obstructive uropathy: Status: Acute (4) Bilateral hydronephrosis: Status: Acute (5) Benign prostatic hyperplasia with urinary retention: Status: Acute (6) JAVED (acute kidney injury): Status: Acute (7) Enlarged prostate: Status: Acute (8) Acute pancreatitis: Status: Acute (9) Protein calorie malnutrition: Status: Acute (10) Sarcopenia: Status: Acute Additional A&P Information Postobstructive uropathy: Creatinine improving with good urine outflow, Hyperphosphatemia and magnesium improved Protein calorie malnourishment investigated: Monitor electrolytes for refeeding syndrome Patient tolerating his current diet Uric acid 18 without any active signs of gout anticipating improvement with IV fluid hydration we will repeat uric acid tomorrow Subclinical hyperthyroidism Pancreatitis: Improving Drug screen negative Full code DVT prophylaxis Heparin Attestations Medical Necessity Statement*: Will discharge home once his creatinine is within normal region Time Spent in Patient Care: less than 15 minutes Coding Level of Care Code Acute Building Construction Supervisor for [facility] Fwd Diagnoses Hyperphosphatemia E83.39 Anemia D64.9 Obstructive uropathy N13.9 Bilateral hydronephrosis N13.30 Benign prostatic hyperplasia with urinary retention N40.1; R33.8 JAVED (acute kidney injury) N17.9 Enlarged prostate N40.0 Acute pancreatitis K85.90 Protein calorie malnutrition E46 Sarcopenia M62.84
--- NOTE | 2020-11-17 15:18 | P.PN_ITS ---
Subjective Subjective: Interval history: Doing well. Friedman has some minor irritation. No edema and no other hypervol Sx. Hemodynamics look good No uremic Sx Medications: Reviewed: Yes Vitals/I&O/Wt Last Vital Signs Temp 98.4 F 11/17/20 11:56 Pulse 84 11/17/20 11:56 Resp 14 11/17/20 11:56 BP 118/63 11/17/20 11:56 Pulse Ox 97 11/17/20 11:56 11/17/20 11/17/20 11/17/20 06:59 14:59 22:59 Intake Total 1000 / 2468.75 1898.75 / 1898.75 Output Total 2050 / 3550 Balance -1050 / -1081.25 1898.75 / 1898.75 Physical Exam Narrative: EXAM NARRATIVE: Constitutional: Awake, comfortable HEENT: Wet mucosa, no jvp, non icteric Lungs: Bilaterally clear without discernible wheeze, rales in all lung zones CVS: S1 S2, no murmurs Abdo: Soft, BS ok Ext 4: Minimal edema, peripheral perfusion with no cyanosis Neurological: Grossly non-focal Urinary Catheter Management^: Coude: Cath Placed During This Visit: yes Reason for Continuing Indwelling Catheter: Acute Urinary Retention or Obstruction Urinary Catheter Date of Insertion: 11/13/20 Urinary Catheter Time of Insertion: 18:30 Data : 11/17/20 02:58 11/17/20 02:58 Micro: Microbiology 11/13/20 19:07 Urine Culture - Final Urine Catheterized A&P Additional A&P Information 1. Renal failure No diagnostic dilemma here, he has been obviously chronically obstructed now for some time. Renal function is already starting to improve, urine output is also starting to improve. The question becomes, the degree of chronic kidney disease that he has sustained. Creatinine coming down Leave Friedman, see below Avoid usual nephrotoxic agents. Close monitoring Dose medication for GFR less than 15 2. Electrolytes Dislikes sodium bicarb, will DC DC ivf also continue to monitor 3. Obstructive uropathy Dr. Linda's input is appreciated, status post Friedman catheter placement. PSA pending. Likely to need TURP in the future. Defer management of Friedman catheter to Dr. Linda. 4. Anemia likely from chronic disease and renal failure iron ok, s/p EPO today 20kiu subq x 1 Likely DC in next few days I would like to thank Dr. Luna for this consultation, as always it is a pleasure to follow these cases with you. Greater than 25 minutes was spent in evaluation management of her care including greater than 50% of time in [id number] counseling. Valentin Sorto MD Nephrology [phone] Attestations Medical Necessity Statement*: eval for JAVED Coding Level of Care Code Acute Filling Hauler for [facility] Nancy
--- NOTE | 2020-11-17 15:30 | PM.PN ---
Subjective Subjective: Interval history: Urology follow-up: Feeling better. He is happy because he is eating more fruit. Urine remains clear. Creatinine continues to decline. We had a good discussion regarding long-term bladder management. It is very likely that his bladder has completely decompensated and may very well never have enough detruser function remaining to allow recovery of normal voiding. We discussed self clean intermittent catheterization as an alternative to indwelling Friedman catheter or suprapubic tube. For now he is willing to consider that once we reached a reasonable time of recovery with Friedman catheter. Vitals/I&O/Wt Last Vital Signs Temp 98.4 F 11/17/20 11:56 Pulse 84 11/17/20 11:56 Resp 14 11/17/20 11:56 BP 118/63 11/17/20 11:56 Pulse Ox 97 11/17/20 11:56 11/17/20 11/17/20 11/17/20 06:59 14:59 22:59 Intake Total 1000 / 2468.75 1898.75 / 1898.75 Output Total 2050 / 3550 Balance -1050 / -1081.25 1898.75 / 1898.75 Physical Exam Const: COMMON NORMALS: no acute distress, alert and well nourished GENERAL APPEARANCE: well kempt and well developed ORIENTATION/CONSCIOUSNESS: not confused Eye: COMMON NORMALS: conjunctivae normal and no scleral icterus CONJUNCTIVA: Yes conjunctivae normal Neck/C-Spine: COMMON NORMALS: full ROM Resp: COMMON NORMALS: normal respiratory effort EFFORT & INSPECTION: No labored and No Actively coughing Neuro: SENSORIUM/ORIENTATION: Yes alert Psych: APPEARANCE: Yes grossly normal and Yes well kempt ATTITUDE: Yes calm and Yes engaged Skin: COMMON NORMALS: no rashes or lesions noted and no jaundice GENERAL SKIN EXAM: no rashes or lesions noted Urinary Catheter Management^: Coude: Cath Placed During This Visit: yes Reason for Continuing Indwelling Catheter: Acute Urinary Retention or Obstruction Urinary Catheter Date of Insertion: 11/13/20 Urinary Catheter Time of Insertion: 18:30 Data : 11/17/20 02:58 11/17/20 02:58 Micro: Microbiology 11/13/20 19:07 Urine Culture - Final Urine Catheterized A&P Assessment and plan (1) Bilateral hydronephrosis: Status: Acute (2) Obstructive uropathy: Status: Acute (3) Elevated PSA: PSA on admission was 15.2. SHAVONNE was benign feeling. Very large though. It is unlikely that there is enough prostate cancer if that is what the 15.2 represents to create local invasive disease in the absence of a grossly abnormal SHAVONNE. He will need a follow-up PSA at some point in the near future. Status: Acute Attestations Medical Necessity Statement*: See attending Coding Level of Care Code Acute Hygiene Teacher for Ashley Cruz Diagnoses Bilateral hydronephrosis N13.30 Obstructive uropathy N13.9 Elevated PSA R97.20
[2020-11-17] MEDS: heparin 5,000 unit/mL INJ 1 mL 5000 UNIT SUBCUT (16:28)
[2020-11-18 00:24] VITALS: BP 109/73; PULSE 118; RESP 18; TEMP 37.3; O2SAT 99
[2020-11-18] MEDS: heparin 5,000 unit/mL INJ 1 mL 5000 UNIT SUBCUT ×2 (03:38→14:25)
[2020-11-18 04:51] VITALS: BP 107/74; PULSE 108; RESP 16; TEMP 36.9; O2SAT 97
[2020-11-18 07:45] LABS: Basophils % 0.2 %; Eosinophils # 0.1 10^3/uL (0.0-0.8); Eosinophils % 0.7 %; Hemoglobin 8.2 g/dL (11.7-16.6); Lymphocytes # 0.7 10^3/uL (0.8-4.8); Lymphocytes % 7.4 %; Mean Corpuscular HGB Conc 31.5 g/dL (30.0-36.0); Mean Corpuscular Hemoglobin 28.4 pg (28.0-34.0); Mean Platelet Volume 11.9 fL (7.4-10.4); Monocytes % 10.2 %; Neutrophils # 8.08 10^3/uL (1.8-7.7); Nucleated Red Blood Cells % 0 %; Platelet Count 206 10^3/cmm (130-400); Red Blood Count 2.89 10^6/uL (4.1-5.3); Red Cell Distribution Width 15.9 % (12.1-15.1)
[2020-11-18 07:52] VITALS: BP 114/71; PULSE 116; RESP 14; TEMP 36.7; O2SAT 100
[2020-11-18 08:21] LABS: Anion Gap 19.8 (5-19); Calcium 8.7 mg/dL (8.5-10.5); Carbon Dioxide 18 mmol/L (22-29); Chloride 107 mmol/L (98-107); Glomerular Filtration Rate 6.9 mL/min (90-130); Glucose 149 mg/dL (65-115); Potassium 3.8 mmol/L (3.5-5.1); Sodium 141 mmol/L (136-145)
[2020-11-18 08:29] LABS: Osmolality Calculated 338 mOsm/kg (285-295)
[2020-11-18 08:31] LABS: Blood Urea Nitrogen 135 mg/dL (8-23)
[2020-11-18 08:38] LABS: Uric Acid 9.6 mg/dL (3.4-7.0)
--- NOTE | 2020-11-18 10:43 | P.PN_ITS ---
Subjective Subjective: Interval history: No new issues today. Eating and drinking well. No uremic symptoms. No extremity edema or other hypervolemic symptoms. Friedman catheter is causing some minor irritation but otherwise is draining well with clear morton urine. Medications: Reviewed: Yes Vitals/I&O/Wt Last Vital Signs Temp 98.1 F 11/18/20 07:52 Pulse 116 H 11/18/20 07:52 Resp 14 11/18/20 07:52 BP 114/71 11/18/20 07:52 Pulse Ox 100 11/18/20 07:52 11/17/20 11/18/20 11/18/20 22:59 06:59 14:59 Intake Total 120 / 2018.75 Output Total 1250 / 1250 950 / 2200 Balance -1130 / 768.75 -950 / -181.25 Physical Exam Narrative: EXAM NARRATIVE: Constitutional: Awake, comfortable HEENT: Wet mucosa, no jvp, non icteric Lungs: Bilaterally clear without discernible wheeze, rales in all lung zones CVS: S1 S2, no murmurs Abdo: Soft, BS ok Ext 4: Minimal edema, peripheral perfusion with no cyanosis Neurological: Grossly non-focal Urinary Catheter Management^: Coude: Cath Placed During This Visit: yes Reason for Continuing Indwelling Catheter: Other Urinary Catheter Date of Insertion: 11/13/20 Urinary Catheter Time of Insertion: 18:30 Data : 11/18/20 07:20 11/18/20 07:20 Micro: Microbiology 11/18/20 05:04 Occult Blood (FIT) - Final Stool Routine Collection A&P Additional A&P Information 1. Renal failure From obstruction, creatinine improving nicely now. Leave Friedman, see below Avoid usual nephrotoxic agents. Close monitoring Dose medication for GFR less than 15 2. Electrolytes Minor aberration, monitor for now, no need to alkalinize, this will improve as renal function improves 3. Obstructive uropathy Dr. Linda's input is appreciated, status post Friedman catheter placement. PSA 15 Defer management of Friedman catheter to Dr. Linda. 4. Anemia likely from chronic disease and renal failure iron ok, s/p EPO today 20kiu subq x 1 Kidney function continues to improve. No further intervention from myself at this time. He will need to follow-up with local [facility] following discharge in 2-3 weeks. I will sign off his care. Please not hesitate to call me should we be of further assistance in his care. I would like to thank Dr. Luna for this consultation, as always it is a pleasure to follow these cases with you. Greater than 25 minutes was spent in evaluation management of her care including greater than 50% of time in [id number] counseling. Valentin Sorto MD Nephrology [phone] Attestations Medical Necessity Statement*: eval for Mart Coding Level of Care Code Acute Systems Test Technician for Aarong Nancy
--- NOTE | 2020-11-18 11:06 | PM.PN ---
Subjective Subjective: Interval history: Urology follow-up: Creatinine continues to improve. 8.0. Urine is remaining clear. Catheter is bothering him somewhat. We will arrange for a right leg StatLock instead of left which is putting some traction on the catheter. Abdomen is soft. No other notable changes. Plans will be to leave the catheter in until he is bottomed out on his creatinine and begin SCIC on outpatient basis. Vitals/I&O/Wt Last Vital Signs Temp 98.1 F 11/18/20 07:52 Pulse 116 H 11/18/20 07:52 Resp 14 11/18/20 07:52 BP 114/71 11/18/20 07:52 Pulse Ox 100 11/18/20 07:52 11/17/20 11/18/20 11/18/20 22:59 06:59 14:59 Intake Total 120 / 2018.75 Output Total 1250 / 1250 950 / 2200 Balance -1130 / 768.75 -950 / -181.25 Physical Exam Const: COMMON NORMALS: no acute distress, alert and well nourished GENERAL APPEARANCE: well kempt and well developed ORIENTATION/CONSCIOUSNESS: not confused Neck/C-Spine: COMMON NORMALS: full ROM GENERAL: Yes normal visual inspection Resp: COMMON NORMALS: normal respiratory effort EFFORT & INSPECTION: No labored and No Actively coughing GI: COMMON NORMALS: Soft to palpation PALPATION: Yes Soft to palpation and No Tenderness to palpation present (GI) : PENIS: normal penis MEATUS: meatus normal, no meatla discharge and No Blood at meatus present SCROTUM: Yes testes descended bilaterally, No edematous and No scrotal swelling TESTES: No testicular tenderness and No testicular mass Extremity: COMMON NORMALS: no clubbing, cyanosis or edema Neuro: SENSORIUM/ORIENTATION: Yes alert Psych: COMMON NORMALS: mental status grossly normal APPEARANCE: Yes grossly normal and Yes well kempt ATTITUDE: Yes calm and Yes engaged Skin: COMMON NORMALS: no rashes or lesions noted and no jaundice GENERAL SKIN EXAM: no rashes or lesions noted Urinary Catheter Management^: Coude: Cath Placed During This Visit: yes Reason for Continuing Indwelling Catheter: Other Urinary Catheter Date of Insertion: 11/13/20 Urinary Catheter Time of Insertion: 18:30 Data : 11/18/20 07:20 11/18/20 07:20 Micro: Microbiology 11/18/20 05:04 Occult Blood (FIT) - Final Stool Routine Collection A&P Assessment and plan (1) Elevated PSA: Will need follow-up after recovery from acute process Status: Acute (2) Bilateral hydronephrosis: Secondary to bladder outlet obstruction. Status: Acute (3) Urinary retention: Chronic with hugely distended bladder likely defunctionalized and upper urinary tract deterioration from back pressure. Status: Acute (4) Obstructive uropathy: Status: Acute Attestations Medical Necessity Statement*: See attending Coding Level of Care Code Acute Director Of Broadcast for Ashley Cruz Diagnoses Elevated PSA R97.20 Bilateral hydronephrosis N13.30 Urinary retention R33.9 Obstructive uropathy N13.9
[2020-11-18 11:54] VITALS: BP 112/78; PULSE 79; RESP 18; TEMP 36.6; O2SAT 97
[2020-11-18 12:33] LABS: Phosphorus 3.4 mg/dL (2.5-4.5)
--- NOTE | 2020-11-18 13:05 | P.PN_ITS ---
Subjective Subjective: Interval history: Patient is feeling lethargic today, he had 1 bowel movement yesterday, able to tolerate his oranges Nephro recommendations reviewed Hemoglobin stable Vitals/I&O/Wt Last Vital Signs Temp 97.8 F 11/18/20 11:54 Pulse 79 11/18/20 11:54 Resp 18 11/18/20 11:54 BP 112/78 11/18/20 11:54 Pulse Ox 97 11/18/20 11:54 11/17/20 11/18/20 11/18/20 22:59 06:59 14:59 Intake Total 120 / 2018.75 Output Total 1250 / 1250 950 / 2200 Balance -1130 / 768.75 -950 / -181.25 Physical Exam Narrative: EXAM NARRATIVE: Patient was laying comfortably however seem lethargic and fatigued Anorexia protein calorie malnourishment, muscle mass loss S1, S2 sinus rhythm Abdomen soft Lower extremity no edema Poor dental hygiene, edentulous Awake alert no signs of neurological deficits Urinary Catheter Management^: Coude: Cath Placed During This Visit: yes Reason for Continuing Indwelling Catheter: Other Urinary Catheter Date of Insertion: 11/13/20 Urinary Catheter Time of Insertion: 18:30 Data : 11/18/20 07:20 11/18/20 07:20 Micro: Microbiology 11/18/20 05:04 Occult Blood (FIT) - Final Stool Routine Collection A&P Assessment and plan (1) Urinary retention: Status: Acute (2) Elevated PSA: Status: Acute (3) Sarcopenia: Status: Acute (4) Protein calorie malnutrition: Status: Acute (5) Hyperphosphatemia: Status: Acute (6) Anemia: Status: Acute (7) Obstructive uropathy: Status: Acute (8) Bilateral hydronephrosis: Status: Acute (9) Benign prostatic hyperplasia with urinary retention: Status: Acute (10) JAVED (acute kidney injury): Status: Acute Additional A&P Information Patient is showing remarkable improvement with improvement in p.o. intake and IV fluids I would like to continue his IV fluids for now however his p.o. intake has increased considerin JAVED Creatinine nicely improving, urine output 1.5 to 2 L a day, We will repeat PSA tomorrow, urology recommendations appreciated, would recommend outpatient follow-up with Dr. Linda Nephrology signed off today, hyperphosphatemia improved No electrolyte abnormality today If he keeps showing gradual recovery he will be able to to be discharged in next 3 to 4 days to home, he does not have insurance which would make it very difficult to place him to a penitentiary which she would be needing ideally Full code Continue soft mechanical diet because of his edentulous state Appreciate dietary recommendations Attestations Medical Necessity Statement*: Anticipating discharge once his kidney function is back to normal Time Spent in Patient Care: less than 15 minutes Coding Level of Care Code Acute Cinder Crane Operator for Chg Fwd Diagnoses Urinary retention R33.9 Elevated PSA R97.20 Sarcopenia M62.84 Protein calorie malnutrition E46 Hyperphosphatemia E83.39 Anemia D64.9 Obstructive uropathy N13.9 Bilateral hydronephrosis N13.30 Benign prostatic hyperplasia with urinary retention N40.1; R33.8 JAVED (acute kidney injury) N17.9
[2020-11-18 15:58] VITALS: BP 114/70; PULSE 80; RESP 18; TEMP 37.1; O2SAT 100
[2020-11-18 20:00] VITALS: BP 110/72; PULSE 42; RESP 17; TEMP 36.8; O2SAT 100
[2020-11-19] VITALS: BP 115/84; PULSE 95; RESP 17; TEMP 36.9; O2SAT 100
[2020-11-19] MEDS: heparin 5,000 unit/mL INJ 1 mL 5000 UNIT SUBCUT ×2 (03:07→13:20)
[2020-11-19 04:00] VITALS: BP 106/66; PULSE 72; RESP 17; TEMP 36.6; O2SAT 100
[2020-11-19 05:43] LABS: Anion Gap 22.6 (5-19); Calcium 8.7 mg/dL (8.5-10.5); Carbon Dioxide 19 mmol/L (22-29); Chloride 103 mmol/L (98-107); Glomerular Filtration Rate 7.6 mL/min (90-130); Glucose 114 mg/dL (65-115); Potassium 3.6 mmol/L (3.5-5.1); Sodium 141 mmol/L (136-145)
[2020-11-19 06:01] LABS: Blood Urea Nitrogen 130 mg/dL (8-23); Osmolality Calculated 335 mOsm/kg (285-295)
--- NOTE | 2020-11-19 07:26 | PC.NURSE ---
AM NOTE NOTED PT TO BE FRAIL AND UNKEPT - QUESTIONED PT REGARDING ORIENTATION ABLE TO STATE PERSON, PLACE, DATE AND SITUATION - DOES REPEATEDLY TALK ABOUT CONCERNS WITH [facility] [facility] ORDER AND CONTINUES TO STATE ADDRESS TO [facility] [facility] - PER NOC NURSE THIS IS UNCHANGED
[2020-11-19 08:00] VITALS: BP 108/64; PULSE 75; RESP 16; TEMP 36.6; O2SAT 99
[2020-11-19] MEDS: sodium chloride 0.9% 1,000 ML 30 ML IV (09:58)
--- NOTE | 2020-11-19 10:52 | P.PN_ITS ---
Subjective Subjective: Interval history: Patient is endorsing feeling better he wants to eat regular diet, he has oranges and bananas by his bedside, no recurrence of vomiting or diarrhea Adequate urine output Continue normal saline Advance diet today to GI soft Patient was asking if we could allow him to molded goods spot picker his food from [employer], I stated that it can be done at the time of discharge but not possible at this point Vitals/I&O/Wt Last Vital Signs Temp 97.8 F 11/19/20 04:00 Pulse 72 11/19/20 04:00 Resp 17 11/19/20 04:00 BP 106/66 11/19/20 04:00 Pulse Ox 100 11/19/20 04:00 11/18/20 11/19/20 11/19/20 22:59 06:59 14:59 Intake Total 600 / 840 240 / 240 Output Total 1750 / 1750 Balance 600 / 840 -1750 / -910 240 / 240 Physical Exam Narrative: EXAM NARRATIVE: Emaciated malnourished male Extreme muscle mass loss S1, S2 sinus rhythm Flat abdomen slight tenderness in midepigastric region Lower extremity no edema No sign of cellulitis no joint swelling Poor dental hygiene, edentulous No neurological deficits EOMI, PERRLA Awake alert oriented x3 Urinary Catheter Management^: Coude: Cath Placed During This Visit: yes Reason for Continuing Indwelling Catheter: Acute Urinary Retention or Obstruction Urinary Catheter Date of Insertion: 11/13/20 Urinary Catheter Time of Insertion: 18:30 Data : 11/18/20 07:20 11/19/20 04:39 Micro: Microbiology 11/13/20 18:19 Blood Culture - Final Blood NO GROWTH AFTER 5 DAYS 11/13/20 18:15 Blood Culture - Final Blood NO GROWTH AFTER 5 DAYS 11/18/20 05:04 Occult Blood (FIT) - Final Stool Routine Collection A&P Assessment and plan (1) Urinary retention: Status: Acute (2) Elevated PSA: Status: Acute (3) Sarcopenia: Status: Acute (4) Protein calorie malnutrition: Status: Acute (5) Hyperphosphatemia: Status: Acute (6) Anemia: Status: Acute (7) Obstructive uropathy: Status: Acute (8) Bilateral hydronephrosis: Status: Acute (9) Benign prostatic hyperplasia with urinary retention: Status: Acute (10) JAVED (acute kidney injury): Status: Acute (11) Acute pancreatitis: Status: Acute Additional A&P Information Postobstructive uropathy with JAVED Hyperphosphatemia and magnesium improved Creatinine nicely trending down with IV fluid hydration and p.o. intake Adequate urine output Appreciate nephro recommendations, nephrology has signed off PSA 15 will request another level tomorrow, to follow up with Dr. Linda on outpatient settings Prostate exam not consistent with cancer Will need a voiding trial before discharge, for now I would keep Friedman catheter in for accurate ins and outs Continue tamsulosin and finasteride Emaciated malnourished protein calorie severe malnourishment Appreciate dietary recommendations Advance diet today, patient is eager to try regular food but because of his edentulous state I would use soft diet Will need dietary follow-up at the time of discharge No typical signs of refeeding syndrome Hyperuricemia improved Normal mag and phosphorus Normocytic anemia Add ferrous sulfate with Dulcolax Low iron secondary to poor p.o. intake Nutritional anemia No active bleeding noted Pancreatitis secondary to starvation Lipase improving patient able to tolerate p.o. diet now Full code DVT prophylaxis: Heparin Unfortunately because of lack of insurance he cannot be placed to a senior living, he will need a voiding trial once his creatinine is better and he will need a follow-up with a dietitian and urologist, he also does not have any PCP Attestations Medical Necessity Statement*: Anticipating discharge once his kidney function is better and he passes voiding trial Time Spent in Patient Care: less than 15 minutes Coding Level of Care Code Acute Apiculture Teacher for Chg Fwd Diagnoses Urinary retention R33.9 Elevated PSA R97.20 Sarcopenia M62.84 Protein calorie malnutrition E46 Hyperphosphatemia E83.39 Anemia D64.9 Obstructive uropathy N13.9 Bilateral hydronephrosis N13.30 Benign prostatic hyperplasia with urinary retention N40.1; R33.8 JAVED (acute kidney injury) N17.9 Acute pancreatitis K85.90
[2020-11-19 16:00] VITALS: BP 117/74; PULSE 114; RESP 16; TEMP 36.9; O2SAT 100
[2020-11-19 20:00] VITALS: BP 117/82; PULSE 98; RESP 16; TEMP 37.1; O2SAT 99
[2020-11-20] VITALS (7 sets, daily range): BP systolic 114–138; BP diastolic 77–88; PULSE 94–144; RESP 16–20; TEMP 36.8–39.6; O2SAT 98–100
[2020-11-20] MEDS: heparin 5,000 unit/mL INJ 1 mL 5000 UNIT SUBCUT ×2 (02:14→13:42)
[2020-11-20 06:04] LABS: Anion Gap 17.6 (5-19); Carbon Dioxide 19 mmol/L (22-29); Chloride 108 mmol/L (98-107); Glomerular Filtration Rate 8.3 mL/min (90-130); Glucose 115 mg/dL (65-115); Potassium 3.6 mmol/L (3.5-5.1); Sodium 141 mmol/L (136-145)
[2020-11-20 06:17] LABS: Vitamin B12 747 pg/mL (232-1245)
[2020-11-20 07:20] LABS: Blood Urea Nitrogen 119 mg/dL (8-23); Osmolality Calculated 331 mOsm/kg (285-295)
--- NOTE | 2020-11-20 07:50 | PC.NURSE ---
patient refuses iron, doctor Jeremy notified.
--- NOTE | 2020-11-20 08:30 | PC.NURSE ---
updated patient on visiting hours
--- NOTE | 2020-11-20 12:29 | P.PN_ITS ---
Subjective Subjective: Interval history: Patient was seen and examined this morning, denies any active complaints, serum creatinine and BUN is trending down, good urine output. Vitals and labs have been reviewed. Medications: Reviewed: Yes Vitals/I&O/Wt Last Vital Signs Temp 99.1 F 11/20/20 11:28 Pulse 99 11/20/20 11:28 Resp 16 11/20/20 11:28 BP 114/78 11/20/20 11:28 Pulse Ox 100 11/20/20 11:28 11/19/20 11/20/20 11/20/20 22:59 06:59 14:59 Intake Total 600 / 960 Output Total 900 / 900 1050 / 1950 175 / 175 Balance -300 / 60 -1050 / -990 -175 / -175 Physical Exam Const: COMMON NORMALS: patient oriented x3 HENMT: COMMON NORMALS: normocephalic and atraumatic HEAD & SCALP: normocephalic and atraumatic Resp: COMMON NORMALS: clear to auscultation bilaterally AUSCULTATION: clear to auscultation bilaterally Cardio: COMMON NORMALS: regular rate, regular rhythm, S1 normal heart sound present, S2 normal heart sound present, No gallops present (Cardio), No murmurs present (Cardio), No rub (Cardio) and Peripheral pulses 2+ throughout RATE: regular rate RHYTHM: regular rhythm HEART SOUNDS: S1 normal heart sound present and S2 normal heart sound present PERIPHERAL PULSES: Peripheral pulses 2+ throughout GI: COMMON NORMALS: Normal to inspection, nondistended, normoactive bowel sounds present, Soft to palpation, non-tender, No hepatosplenomegaly present and no masses AUSCULTATION: Yes normoactive bowel sounds PALPATION: Yes Soft to palpation and Yes No hepatosplenomegaly present RECTAL EXAM: Yes deferred Extremity: COMMON NORMALS: no clubbing, cyanosis or edema and no pedal edema Neuro: COMMON NORMALS: patient oriented x3 Urinary Catheter Management^: Coude: Cath Placed During This Visit: yes Reason for Continuing Indwelling Catheter: Acute Urinary Retention or Obstruction Urinary Catheter Date of Insertion: 11/13/20 Urinary Catheter Time of Insertion: 18:30 Data : 11/18/20 07:20 11/20/20 04:39 A&P Assessment and plan (1) Urinary retention: Status: Acute (2) Elevated PSA: Status: Acute (3) Sarcopenia: Status: Acute (4) Protein calorie malnutrition: Status: Acute (5) Hyperphosphatemia: Status: Acute (6) Anemia: Status: Acute (7) Obstructive uropathy: Status: Acute (8) Bilateral hydronephrosis: Status: Acute (9) Benign prostatic hyperplasia with urinary retention: Status: Acute (10) JAVED (acute kidney injury): Status: Acute (11) Acute pancreatitis: Status: Acute Additional A&P Information Postobstructive uropathy with JAVED Hyperphosphatemia and magnesium improved Creatinine nicely trending down with IV fluid hydration and p.o. intake Adequate urine output Appreciate nephro recommendations, nephrology has signed off PSA 15 will request another level tomorrow, to follow up with Dr. Linda on outpatient settings Prostate exam not consistent with cancer Will need a voiding trial before discharge, for now I would keep Friedman catheter in for accurate ins and outs Continue tamsulosin and finasteride Emaciated malnourished protein calorie severe malnourishment Appreciate dietary recommendations Advance diet today, patient is eager to try regular food but because of his edentulous state I would use soft diet Will need dietary follow-up at the time of discharge No typical signs of refeeding syndrome Hyperuricemia improved Normal mag and phosphorus Normocytic anemia Add ferrous sulfate with Dulcolax Low iron secondary to poor p.o. intake Nutritional anemia No active bleeding noted Pancreatitis secondary to starvation Lipase improving patient able to tolerate p.o. diet now Full code DVT prophylaxis: Heparin Unfortunately because of lack of insurance he cannot be placed to a [facility], he will need a voiding trial once his creatinine is better and he will need a follow-up with a dietitian and urologist, he also does not have any PCP Attestations Medical Necessity Statement*: Patient needs to be in the hospital for management of JAVED. Coding Level of Care Code Acute Plant Technical Specialist for Chg Fwd Diagnoses Urinary retention R33.9 Elevated PSA R97.20 Sarcopenia M62.84 Protein calorie malnutrition E46 Hyperphosphatemia E83.39 Anemia D64.9 Obstructive uropathy N13.9 Bilateral hydronephrosis N13.30 Benign prostatic hyperplasia with urinary retention N40.1; R33.8 JAVED (acute kidney injury) N17.9 Acute pancreatitis K85.90
[2020-11-20] MEDS: sodium chloride 0.9% 1,000 ML 30 ML IV (13:42)
--- NOTE | 2020-11-20 18:21 | P.PN_ITS ---
Subjective Subjective: Interval history: He feels a little bit stronger today. Tolerating catheter reasonably well. Urine is clear. Continues slow decline in creatinine and BUN. He states that he is been getting up twice a day. Encouraged him to increase his activity Also reviewed plans for the catheter. We will keep in place until his creatinine plateaus and then convert to self clean intermittent catheterization. It is likely that this will occur on outpatient basis in my clinic where he can have a cystoscopy as well to better assess the prostatic configuration. We will also need a repeat PSA at some point in the near future. Likely to be falsely elevated at this point of because of his instrumentation. Vitals/I&O/Wt Last Vital Signs Temp 99.1 F 11/20/20 15:04 Pulse 119 H 11/20/20 15:04 Resp 20 H 11/20/20 15:04 BP 126/84 11/20/20 15:04 Pulse Ox 99 11/20/20 15:04 11/20/20 11/20/20 11/20/20 06:59 14:59 22:59 Intake Total 1192 / 1192 480 / 1672 Output Total 1050 / 1950 175 / 175 1050 / 1225 Balance -1050 / -990 1017 / 1017 -570 / 447 Physical Exam Narrative: EXAM NARRATIVE: Frail-appearing weak appearing no acute distress Respirations: No labored respiration Neck: Good range of motion Chest: Normal movement Psychiatric: Appears depressed Urinary Catheter Management^: Coude: Cath Placed During This Visit: yes Reason for Continuing Indwelling Catheter: Acute Urinary Retention or Obstruction Urinary Catheter Date of Insertion: 11/13/20 Urinary Catheter Time of Insertion: 18:30 Data : 11/18/20 07:20 11/20/20 04:39 A&P Assessment and plan (1) Elevated PSA: Will need follow-up after recovery from acute process We will plan on this on outpatient basis Status: Acute (2) Bilateral hydronephrosis: Secondary to bladder outlet obstruction. Slowly improving renal function. Status: Acute (3) Urinary retention: Chronic with hugely distended bladder likely defunctionalized and upper urinary tract deterioration from back pressure. Maintain Friedman catheter for now. Plan for conversion to self clean intermittent catheterization on outpatient basis in conjunction with cystoscopy. Status: Acute (4) Obstructive uropathy: Status: Acute Attestations Medical Necessity Statement*: See attending Coding Level of Care Code Acute Bicycle Service Technician for Chg Fwd Diagnoses Elevated PSA R97.20 Bilateral hydronephrosis N13.30 Urinary retention R33.9 Obstructive uropathy N13.9
--- NOTE | 2020-11-20 23:47 | XRR_ITS ---
PROCEDURE INFORMATION: Exam: XR Chest Exam date and time: 11/20/2020 11:47 PM Age: 59 years old Clinical indication: Fever TECHNIQUE: Imaging protocol: XR of the chest. Views: 1 view. COMPARISON: CT abdomen pelvis con [id number] 11/13/2020 3:37 PM FINDINGS: Lungs: Poorly defined patchy infiltrates in the right mid lung. The left lung is clear. Hyperinflation suggesting possible COPD. Pleural spaces: Unremarkable. No pleural effusion. No pneumothorax. Heart/Mediastinum: Unremarkable. No cardiomegaly. Bones/joints: Unremarkable. XR/XR chest 1V portable [id number] IMPRESSION: Probable patchy infiltrates in the right mid lung.
[2020-11-21] VITALS (10 sets, daily range): BP systolic 72–121; BP diastolic 44–77; PULSE 74–151; RESP 16–18; TEMP 37–39.5; O2SAT 96–100
[2020-11-21] MEDS: acetaminophen 325 mg Tablet PO (00:08)
[2020-11-21 01:05] LABS: Add Urine Microscopic? YES; Bilirubin Urine Neg (Negative); Blood Urine 3+ (Negative); Glucose Urine UA Trace (Normal); Ketones Urine Negative (Negative); Leukocyte Esterase Urine Negative (Negative); Nitrate Urine Negative (Negative); Protein Urine 1+ (Negative); Specific Gravity, Urine 1.005 (1.005-1.030); Urine Appearance Clear (CLEAR); Urine Color Yellow (Yellow); Urobilinogen Urine Norm (Negative); pH Urine 5 (5-7)
[2020-11-21 01:06] LABS: Add Urine Culture? No; Bacteria Urine 1+ /hpf; Squamous Epithelial Cell Urine 0-4 /hpf (0-5); WBC Urine 0-4 /hpf (0-5)
[2020-11-21] MEDS: heparin 5,000 unit/mL INJ 1 mL 5000 UNIT SUBCUT (02:46)
[2020-11-21 05:52] LABS: Basophils % 0.4 %; Eosinophils % 0.4 %; Lymphocytes # 0.8 10^3/uL (0.8-4.8); Lymphocytes % 10.2 %; Mean Corpuscular Hemoglobin 28.7 pg (28.0-34.0); Mean Corpuscular Volume 89.6 fL (80-94); Mean Platelet Volume 11.7 fL (7.4-10.4); Monocytes # 0.8 10^3/uL (0.2-0.9); Monocytes % 11.1 %; Neutrophils # 5.75 10^3/uL (1.8-7.7); Neutrophils % 77.1 %; Nucleated Red Blood Cells % 0 %; Platelet Count 191 10^3/cmm (130-400); Red Blood Count 2.79 10^6/uL (4.1-5.3); Red Cell Distribution Width 15.8 % (12.1-15.1); White Blood Count 7.5 10^3/uL (4.0-10.0)
[2020-11-21 06:08] LABS: Anion Gap 18.3 (5-19); Calcium 7.9 mg/dL (8.5-10.5); Carbon Dioxide 17 mmol/L (22-29); Chloride 110 mmol/L (98-107); Glomerular Filtration Rate 9.5 mL/min (90-130); Glucose 115 mg/dL (65-115); Osmolality Calculated 328 mOsm/kg (285-295); Potassium 4.3 mmol/L (3.5-5.1); Sodium 141 mmol/L (136-145)
[2020-11-21 06:10] LABS: Blood Urea Nitrogen 111 mg/dL (8-23)
[2020-11-21] MEDS: sodium chloride 0.9% 500 ML 999 ML IV (08:05)
--- NOTE | 2020-11-21 08:10 | PC.NURSE ---
patient refuses to be tested for COVID again. Dr Padilla notified. Per Dr Padilla, OK that is fine.
[2020-11-21] MEDS: sodium chloride 0.9% 1,000 ML 125 ML IV (08:49)
--- NOTE | 2020-11-21 08:53 | PC.NURSE ---
notified Dr Padilla that after bolus is 121/77.
[2020-11-21] MEDS: cefTRIAXone 1,000 MG in sodium chloride 0.9% (plus) 50 ML 100 MG IV (09:18)
--- NOTE | 2020-11-21 09:39 | P.PN_ITS ---
Subjective Subjective: Interval history: Patient was seen and examined this morning, denies any active complaints, serum creatinine and BUN is trending down, good urine output. Overnight he had temperature spike of 103.1, he has also been hypotensive today. Requiring 500 cc normal saline bolus followed by 125 cc/h for a total of 1 L normal saline, followed by maintenance of 50 cc an hour normal saline. Medications: Reviewed: Yes Vitals/I&O/Wt Last Vital Signs Temp 99.0 F 11/21/20 08:00 Pulse 125 H 11/21/20 08:00 Resp 18 11/21/20 08:00 BP 121/77 11/21/20 08:50 Pulse Ox 100 11/21/20 08:00 11/20/20 11/21/20 11/21/20 22:59 06:59 14:59 Intake Total 720 / 1912 120 / 2032 1220 / 1220 Output Total 1050 / 1225 350 / 350 Balance -330 / 687 120 / 807 870 / 870 Physical Exam Const: COMMON NORMALS: patient oriented x3 HENMT: COMMON NORMALS: normocephalic and atraumatic HEAD & SCALP: normocephalic and atraumatic Resp: COMMON NORMALS: clear to auscultation bilaterally AUSCULTATION: clear to auscultation bilaterally Cardio: COMMON NORMALS: regular rate, regular rhythm, S1 normal heart sound present, S2 normal heart sound present, No gallops present (Cardio), No murmurs present (Cardio), No rub (Cardio) and Peripheral pulses 2+ throughout RATE: regular rate RHYTHM: regular rhythm HEART SOUNDS: S1 normal heart sound present and S2 normal heart sound present PERIPHERAL PULSES: Peripheral pulses 2+ throughout GI: COMMON NORMALS: Normal to inspection, nondistended, normoactive bowel sounds present, Soft to palpation, non-tender, No hepatosplenomegaly present and no masses AUSCULTATION: Yes normoactive bowel sounds PALPATION: Yes Soft to palpation and Yes No hepatosplenomegaly present RECTAL EXAM: Yes deferred Extremity: COMMON NORMALS: no clubbing, cyanosis or edema and no pedal edema Neuro: COMMON NORMALS: patient oriented x3 Urinary Catheter Management^: Coude: Cath Placed During This Visit: yes Reason for Continuing Indwelling Catheter: Acute Urinary Retention or Obstruction Urinary Catheter Date of Insertion: 11/13/20 Urinary Catheter Time of Insertion: 18:30 Data : 11/21/20 05:25 11/21/20 05:25 Micro: Microbiology 11/21/20 05:28 Blood Culture - Preliminary Blood SPECIMEN COLLECTED 11/21/20 05:25 Blood Culture - Preliminary Blood SPECIMEN COLLECTED A&P Assessment and plan (1) Sepsis: Status: Acute (2) Urinary retention: Status: Acute (3) Elevated PSA: Status: Acute (4) Sarcopenia: Status: Acute (5) Protein calorie malnutrition: Status: Acute (6) Hyperphosphatemia: Status: Acute (7) Anemia: Status: Acute (8) Obstructive uropathy: Status: Acute (9) Bilateral hydronephrosis: Status: Acute (10) Benign prostatic hyperplasia with urinary retention: Status: Acute (11) JAVED (acute kidney injury): Status: Acute (12) Acute pancreatitis: Status: Acute (13) Metabolic acidosis: Status: Acute Additional A&P Information Sepsis : Currently source unknown: Patient has fever, tachycardia , hypotension: Blood culture Urine culture Procalcitonin X-ray chest:Patchy infiltrates in the right mid lung. Patient refused Covid PCR Empirically on ceftriaxone Midodrine 10 mg x 1 dose Postobstructive uropathy with JAVED Hyperphosphatemia and magnesium improved Creatinine nicely trending down with IV fluid hydration and p.o. intake Adequate urine output Appreciate nephro recommendations, nephrology has signed off PSA 15 will request another level tomorrow, to follow up with Dr. Linda on outpatient settings Prostate exam not consistent with cancer Will need a voiding trial before discharge, for now I would keep Friedman catheter in for accurate ins and outs Continue tamsulosin and finasteride NAGMA ( normal anion gap metabolic acidosis ) : Currently on bicarb drip ~50 cc an hour: Target serum bicarb for 24. Emaciated malnourished protein calorie severe malnourishment Appreciate dietary recommendations Advance diet today, patient is eager to try regular food but because of his edentulous state I would use soft diet Will need dietary follow-up at the time of discharge No typical signs of refeeding syndrome Hyperuricemia improved Normal mag and phosphorus Normocytic anemia Add ferrous sulfate with Dulcolax Low iron secondary to poor p.o. intake Nutritional anemia No active bleeding noted Pancreatitis secondary to starvation Lipase improving patient able to tolerate p.o. diet now Full code DVT prophylaxis: Heparin Unfortunately because of lack of insurance he cannot be placed to a care home, he will need a voiding trial once his creatinine is better and he will need a follow-up with a dietitian and urologist, he also does not have any PCP Attestations Medical Necessity Statement*: Patient needs to be in the hospital for management of sepsis, JAVED. 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
--- NOTE | 2020-11-21 10:26 | PC.NURSE ---
Per Dr Padilla, okay to discontinue isolation precautions.
--- NOTE | 2020-11-21 11:45 | PC.NURSE ---
notified Dr Padilla that patient's blood pressure is 83/52, temp is 103.1 and heart rate is 106.
--- NOTE | 2020-11-21 12:33 | PC.NUTR ---
Nutrition follow up: Attempted to interview pt but pt primarily discussed medical issues with this RD, such as thrombosis, blood pressure, temperatures, etc. Encouraged pt to discuss with nurse or MD. Pt reports he dislikes nutritional supplement, however upon speaking with nurse, learned Ensure is the main item pt consumed yesterday. Will clarify supplement to Ensure. Added fresh fruit with meals per pt preference. Continue with other pt preferences per previous assessments. Recommend to obtain current weight when possible. See full RD assessment for further details.
--- NOTE | 2020-11-21 15:05 | PC.NURSE ---
patient refuses heparin. Dr Padilla notified
--- NOTE | 2020-11-21 15:42 | PC.NURSE ---
[address] Padilla that patient's blood pressure is 72/47.
[2020-11-21] MEDS: midodrine 5 mg TABLET 10 MG PO (16:53)
[2020-11-21] MEDS: sodium chloride 0.9% 1,000 ML 50 ML IV (16:53)
--- NOTE | 2020-11-21 17:34 | PC.NURSE ---
notified Dr Padilla that patient's blood pressure is 102/66, HR is 133 and temp is 98.7
--- NOTE | 2020-11-21 19:13 | ECG_ITS ---
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 Measurements Intervals [place] Rate: 89 P: AK: QRS: 100 QRSD: 157 T: -64 QT: 388 QTc: 475 Interpretive Statements UNCERTAIN IRREGULAR RHYTHM INTRAVENTRICULAR CONDUCTION DELAY [130+ ms QRS DURATION] SEPTAL MYOCARDIAL INFARCTION [40+ ms Q WAVE IN V1/V2], PROBABLY OLD LATERAL MYOCARDIAL INFARCTION [40+ ms Q WAVE AND/OR ST/T ABNORMALITY IN I/aVL/V5/V6], OF INDETERMINATE AGE No previous ECG available for comparison Electronically Signed On 11-23-2020 23:06:44 CDT by Shahid Solis M.D. [id number]
[2020-11-21] MEDS: sodium bicarbonate 150 MEQ in dextrose 5% 1,000 ML 50 MEQ IV (21:39)
[2020-11-22] VITALS (9 sets, daily range): BP systolic 103–138; BP diastolic 65–85; PULSE 79–100; RESP 15–19; TEMP 36.1–37.3; O2SAT 98–100
[2020-11-22 06:03] LABS: Basophils % 0.3 %; Eosinophils # 0.1 10^3/uL (0.0-0.8); Hematocrit 21.3 % (42.0-52.0); Hemoglobin 6.7 g/dL (11.7-16.6); Lymphocytes # 1.1 10^3/uL (0.8-4.8); Lymphocytes % 9.5 %; Mean Corpuscular HGB Conc 31.5 g/dL (30.0-36.0); Mean Corpuscular Hemoglobin 29.1 pg (28.0-34.0); Mean Corpuscular Volume 92.6 fL (80-94); Mean Platelet Volume 11.9 fL (7.4-10.4); Monocytes # 0.9 10^3/uL (0.2-0.9); Monocytes % 8.5 %; Neutrophils # 8.91 10^3/uL (1.8-7.7); Neutrophils % 80.1 %; Nucleated Red Blood Cells % 0 %; Platelet Count 167 10^3/cmm (130-400); Red Cell Distribution Width 16.1 % (12.1-15.1); White Blood Count 11.1 10^3/uL (4.0-10.0)
[2020-11-22 06:38] LABS: Alanine Aminotransferase 18 U/L (0-41); Albumin Level 2.4 g/dL (3.5-5.2); Alkaline Phosphatase 90 IU/L (40-130); Aspartate Amino Transferase 22 U/L (0-40); Calcium 7.6 mg/dL (8.5-10.5); Carbon Dioxide 18 mmol/L (22-29); Chloride 107 mmol/L (98-107); Globulin 3.3 g/dL (1.3-4.6); Glomerular Filtration Rate 10.9 mL/min (90-130); Glucose 106 mg/dL (65-115); Osmolality Calculated 318 mOsm/kg (285-295); Sodium 137 mmol/L (136-145); Total Bilirubin 0.2 mg/dL (0.15-1.2); Total Protein 5.7 g/dL (6.6-8.7)
[2020-11-22 06:56] LABS: Blood Urea Nitrogen 108 mg/dL (8-23)
[2020-11-22] MEDS: cefTRIAXone 1,000 MG in sodium chloride 0.9% (plus) 50 ML 100 MG IV (08:51)
--- NOTE | 2020-11-22 12:24 | PM.PN ---
Subjective Subjective: Interval history: Patient was seen and examined this morning, denies any active complaints, serum creatinine and BUN is trending down, good urine output. Hb has dropped to 6.7 plan is to transfuse a unit. Medications: Reviewed: Yes Vitals/I&O/Wt Last Vital Signs Temp 99.1 F 11/22/20 12:00 Pulse 91 11/22/20 12:00 Resp 17 11/22/20 12:00 BP 113/73 11/22/20 12:00 Pulse Ox 100 11/22/20 12:00 11/21/20 11/22/20 11/22/20 22:59 06:59 14:59 Intake Total 1590.834 / 3580.834 50 / 50 Output Total 900 / 1250 750 / 2000 Balance 690.834 / 2330.834 -750 / 1580.834 50 / 50 Physical Exam Const: COMMON NORMALS: patient oriented x3 HENMT: COMMON NORMALS: normocephalic and atraumatic HEAD & SCALP: normocephalic and atraumatic Resp: COMMON NORMALS: clear to auscultation bilaterally AUSCULTATION: clear to auscultation bilaterally Cardio: COMMON NORMALS: regular rate, regular rhythm, S1 normal heart sound present, S2 normal heart sound present, No gallops present (Cardio), No murmurs present (Cardio), No rub (Cardio) and Peripheral pulses 2+ throughout RATE: regular rate RHYTHM: regular rhythm HEART SOUNDS: S1 normal heart sound present and S2 normal heart sound present PERIPHERAL PULSES: Peripheral pulses 2+ throughout GI: COMMON NORMALS: Normal to inspection, nondistended, normoactive bowel sounds present, Soft to palpation, non-tender, No hepatosplenomegaly present and no masses AUSCULTATION: Yes normoactive bowel sounds PALPATION: Yes Soft to palpation and Yes No hepatosplenomegaly present RECTAL EXAM: Yes deferred Extremity: COMMON NORMALS: no clubbing, cyanosis or edema and no pedal edema Neuro: COMMON NORMALS: patient oriented x3 Urinary Catheter Management^: Coude: Cath Placed During This Visit: yes Reason for Continuing Indwelling Catheter: Acute Urinary Retention or Obstruction Urinary Catheter Date of Insertion: 11/13/20 Urinary Catheter Time of Insertion: 18:30 Data : 11/22/20 05:51 11/22/20 17:46 Micro: Microbiology 11/21/20 00:20 Urine Culture - Preliminary Urine Catheterized 11/21/20 05:25 Blood Culture - Preliminary Blood 11/21/20 05:28 Blood Culture - Preliminary Blood NEGATIVE TO DATE A&P Assessment and plan (1) Sepsis: Status: Acute (2) Urinary retention: Status: Acute (3) Elevated PSA: Status: Acute (4) Sarcopenia: Status: Acute (5) Protein calorie malnutrition: Status: Acute (6) Hyperphosphatemia: Status: Acute (7) Anemia: Status: Acute (8) Obstructive uropathy: Status: Acute (9) Bilateral hydronephrosis: Status: Acute (10) Benign prostatic hyperplasia with urinary retention: Status: Acute (11) JAVED (acute kidney injury): Status: Acute (12) Acute pancreatitis: Status: Acute (13) Metabolic acidosis: Status: Acute Additional A&P Information Sepsis : Currently source unknown: Patient has fever, tachycardia , hypotension: Blood culture Urine culture Procalcitonin X-ray chest:Patchy infiltrates in the right mid lung. Patient refused Covid PCR Empirically on ceftriaxone Midodrine 10 mg x 1 dose Postobstructive uropathy with JAVED Hyperphosphatemia and magnesium improved Creatinine nicely trending down with IV fluid hydration and p.o. intake Adequate urine output Appreciate nephro recommendations, nephrology has signed off PSA 15 will request another level tomorrow, to follow up with Dr. Linda on outpatient settings Prostate exam not consistent with cancer Will need a voiding trial before discharge, for now I would keep Friedman catheter in for accurate ins and outs Continue tamsulosin and finasteride NAGMA ( normal anion gap metabolic acidosis ) : Currently on bicarb drip ~50 cc an hour: Target serum bicarb for 24. Emaciated malnourished protein calorie severe malnourishment Appreciate dietary recommendations Advance diet today, patient is eager to try regular food but because of his edentulous state I would use soft diet Will need dietary follow-up at the time of discharge No typical signs of refeeding syndrome Hyperuricemia improved Normal mag and phosphorus Normocytic anemia Add ferrous sulfate with Dulcolax Low iron secondary to poor p.o. intake Nutritional anemia No active bleeding noted Pancreatitis secondary to starvation Lipase improving patient able to tolerate p.o. diet now Full code DVT prophylaxis: Heparin Unfortunately because of lack of insurance he cannot be placed to a skilled nursing, he will need a voiding trial once his creatinine is better and he will need a follow-up with a dietitian and urologist, he also does not have any PCP Attestations Medical Necessity Statement*: Patient needs to be in hospital for the management of sepsis,JAVED,Anemia. Coding Level of Care Code Acute Desk Lieutenant for Chg Fwd Exam Detailed Diagnoses Sepsis A41.9 Urinary retention R33.9 Elevated PSA R97.20 Sarcopenia M62.84 Protein calorie malnutrition E46 Hyperphosphatemia E83.39 Anemia D64.9 Obstructive uropathy N13.9 Bilateral hydronephrosis N13.30 Benign prostatic hyperplasia with urinary retention N40.1; R33.8 JAVED (acute kidney injury) N17.9 Acute pancreatitis K85.90 Metabolic acidosis E87.2
[2020-11-22] MEDS: sodium chloride 0.9% (100 ml) 100 ML 999 ML (15:37)
[2020-11-22 18:25] LABS: Anion Gap 15.5 (5-19); Calcium 7.1 mg/dL (8.5-10.5); Carbon Dioxide 17 mmol/L (22-29); Chloride 108 mmol/L (98-107); Glomerular Filtration Rate 11.4 mL/min (90-130); Glucose 118 mg/dL (65-115); Osmolality Calculated 317 mOsm/kg (285-295); Potassium 4.5 mmol/L (3.5-5.1); Sodium 136 mmol/L (136-145)
[2020-11-22 18:33] LABS: Blood Urea Nitrogen 107 mg/dL (8-23)
[2020-11-22] MEDS: sodium chloride 0.9% 1,000 ML 100 ML IV (19:34)
--- NOTE | 2020-11-22 19:40 | PC.NURSE ---
meds pt tolerated the blood transfusion. pt refused to walk. pt ordered food from [employer] and had it delivered. Very talkative. No c/o pain.
[2020-11-23] VITALS: BP 107/66; PULSE 112; RESP 16; TEMP 36.7; O2SAT 98
[2020-11-23 04:00] VITALS: BP 108/70; PULSE 110; RESP 13; TEMP 36.7; O2SAT 98
[2020-11-23 05:41] LABS: Basophils % 0.4 %; Eosinophils # 0.3 10^3/uL (0.0-0.8); Eosinophils % 3.9 %; Hemoglobin 7.7 g/dL (11.7-16.6); Lymphocytes # 1.1 10^3/uL (0.8-4.8); Lymphocytes % 13.4 %; Mean Corpuscular HGB Conc 32.1 g/dL (30.0-36.0); Mean Corpuscular Hemoglobin 28.8 pg (28.0-34.0); Mean Corpuscular Volume 89.9 fL (80-94); Mean Platelet Volume 12.1 fL (7.4-10.4); Monocytes # 0.8 10^3/uL (0.2-0.9); Monocytes % 9.9 %; Neutrophils # 5.65 10^3/uL (1.8-7.7); Neutrophils % 71.6 %; Nucleated Red Blood Cells % 0 %; Platelet Count 157 10^3/cmm (130-400); Red Blood Count 2.67 10^6/uL (4.1-5.3); Red Cell Distribution Width 16.4 % (12.1-15.1); White Blood Count 7.9 10^3/uL (4.0-10.0)
[2020-11-23] MEDS: sodium chloride 0.9% 1,000 ML 100 ML IV (05:45)
--- NOTE | 2020-11-23 05:52 | PC.NURSE ---
shift note patient continue to refuse sodium bicarb, remeron, and heparin injection. insisting he does not need them.
[2020-11-23 06:05] LABS: Alanine Aminotransferase 20 U/L (0-41); Albumin Level 2.2 g/dL (3.5-5.2); Alkaline Phosphatase 91 IU/L (40-130); Anion Gap 16.9 (5-19); Aspartate Amino Transferase 22 U/L (0-40); Calcium 7.3 mg/dL (8.5-10.5); Carbon Dioxide 18 mmol/L (22-29); Chloride 108 mmol/L (98-107); Globulin 3.5 g/dL (1.3-4.6); Glomerular Filtration Rate 12.5 mL/min (90-130); Glucose 98 mg/dL (65-115); Osmolality Calculated 316 mOsm/kg (285-295); Potassium 4.9 mmol/L (3.5-5.1); Sodium 138 mmol/L (136-145); Total Bilirubin 0.2 mg/dL (0.15-1.2); Total Protein 5.7 g/dL (6.6-8.7)
[2020-11-23 06:25] LABS: Blood Urea Nitrogen 98 mg/dL (8-23)
[2020-11-23 07:49] VITALS: BP 104/66; PULSE 65; RESP 17; TEMP 36.9; O2SAT 98
[2020-11-23] MEDS: cefTRIAXone 1,000 MG in sodium chloride 0.9% (plus) 50 ML 100 MG IV (09:47)
[2020-11-23 11:50] VITALS: BP 99/68; PULSE 112; RESP 17; TEMP 36.7; O2SAT 97
--- NOTE | 2020-11-23 15:06 | P.DS_ITS ---
Discharge Providers Date of Admission: 11/13/20 16:53 Date of Discharge: November 23, 2020 Attending Provider at Admission: Dayami Luna MD Attending Provider at Discharge: Rodolfo Padilla MD Diagnoses at Discharge Discharge Diagnosis (1) Sepsis: Status: Resolved (2) Urinary retention: Status: Acute (3) Elevated PSA: Status: Acute (4) Sarcopenia: Status: Acute (5) Protein calorie malnutrition: Status: Acute (6) Hyperphosphatemia: Status: Acute (7) Anemia: Status: Acute (8) Obstructive uropathy: Status: Acute (9) Bilateral hydronephrosis: Status: Acute (10) Benign prostatic hyperplasia with urinary retention: Status: Acute (11) JAVED (acute kidney injury): Status: Acute (12) Acute pancreatitis: Status: Acute (13) Metabolic acidosis: Status: Acute Reason for Visit Reason for Visit: weak, N/V Hospital Course Hospital Course 59 year old male without significant past medical surgical history presented with chief complaint of recurrent nausea and vomiting. Patient stating that symptoms started about 2 months ago when he started experiencing multiple episodes of nausea and vomiting which he initially attributed to eating chicken at discharge. His symptoms never got resolved, he did not spike any temperature, no diarrhea was noticed. In last 30 days he has not been able to even drink a sip of water which he is describing as complete fasting for last 30 days. On Arrival in the ER he was worked up for above-mentioned complaint. Further work-up during the hospital stay revealed acute renal failure secondary to postobstructive uropathy secondary to bladder outlet obstruction secondary to enlarged prostate. CT abdomen pelvis wo con Profound bilateral obstructive uropathy secondary to gross bladder distention which may be due to prostatic hypertrophy. Friedman cath was placed, urology Dr. Linda as well as nephrology was on board, patient was kept on IV hydration, with good recovery of renal function, BUN and creatinine was trending down, at the time of discharge BUN was, 98, creatinine 4.8, admission BUN was 193, admission serum creatinine:17. Patient has been advised to keep himself self well-hydrated, he will follow Dr. Turner the bartender server as an outpatient , with repeat BMP in 1 week, he will also follow-up with Dr. Linda as an outpatient in 1 week, regarding the Friedman catheter removal as well Plan for conversion to self clean intermittent catheterization on outpatient basis in conjunction with cystoscopy. Hospital course was also complicated by development of anemia likely anemia of renal disease, requiring 1 unit PRBC transfusion, post transfusion CBC was stable.Hospital course was also complicated by development of sepsis of unclear etiology, blood cultures were negative, procalcitonin was extremely high, it is very difficult to interpret such high procalcitonin in the presence of renal failure, X-ray chest:Patchy infiltrates in the right mid lung.But patient had no other signs suggestive of pneumonia, he was not short of breath, was not coughi ng, was saturating well on room air.Patient was kept on ceftriaxone to which he responded well. At the time of discharge he was afebrile and hemodynamically stable.He was not discharged on any antibiotics. Emaciated malnourished protein calorie severe malnourishment, nutrition consult was done, patient was encouraged to increase his p.o. oral intake. PSA was high falsely elevated, in this acute setting, instrumentation: Contributing to it. Repeat PSA will be done as an outpatient.Urinary retention:Chronic with hugely distended bladder likely defunctionalized and upper urinary tract deterioration from back pressure.Maintain Friedman catheter for now. Plan for conversion to self clean intermittent catheterization on outpatient basis in conjunction with cystoscopy. Patient responded well to the above medical management and is being discharged in stable condition to home. Physical Exam Const: COMMON NORMALS: patient oriented x3 HENMT: COMMON NORMALS: normocephalic and atraumatic HEAD & SCALP: normocephalic and atraumatic Resp: COMMON NORMALS: clear to auscultation bilaterally AUSCULTATION: clear to auscultation bilaterally Cardio: COMMON NORMALS: regular rate, regular rhythm, S1 normal heart sound present, S2 normal heart sound present, No gallops present (Cardio), No murmurs present (Cardio), No rub (Cardio) and Peripheral pulses 2+ throughout RATE: regular rate RHYTHM: regular rhythm HEART SOUNDS: S1 normal heart sound present and S2 normal heart sound present PERIPHERAL PULSES: Peripheral pulses 2+ throughout GI: COMMON NORMALS: Normal to inspection, nondistended, normoactive bowel sounds present, Soft to palpation, non-tender, No hepatosplenomegaly present and no masses AUSCULTATION: Yes normoactive bowel sounds PALPATION: Yes Soft to palpation and Yes No hepatosplenomegaly present RECTAL EXAM: Yes deferred Extremity: COMMON NORMALS: no clubbing, cyanosis or edema and no pedal edema Neuro: COMMON NORMALS: patient oriented x3 Urinary Catheter Management^: Coude: Cath Placed During This Visit: yes Reason for Continuing Indwelling Catheter: Acute Urinary Retention or Obstruction Urinary Catheter Date of Insertion: 11/13/20 Urinary Catheter Time of Insertion: 18:30 Discharge Data Data Completed and Pending: Completed Studies During Hospitalization Category Date Time Status CT abdomen pelvis wo con [id number] Stat Cat Scan 11/13/20 14:31 Completed XR KUB portable [id number] Stat Exams 11/13/20 14:25 Completed XR chest 1V alanna ble [id number] Stat Exams 11/20/20 23:47 Completed Pending at discharge Category Date Time Status Blood Culture Sta t Lab 11/20/20 23:47 Results Complete Blood Co unt w/Auto AM LABS Lab 11/24/20 04:00 Ordered Comprehensive Met abolic Panel AM LA BS Lab 11/24/20 04:00 Ordered Labs from last 24 hours 11/23/20 11/23/20 11/22/20 05:09 05:09 17:46 WBC 7.9 RBC 2.67 L Hgb 7.7 L Hct 24.0 L MCV 89.9 MCH 28.8 MCHC 32.1 RDW 16.4 H Plt Count 157 MPV 12.1 H Neut % (Auto) 71.6 Lymph % (Auto) 13.4 [place] % (Auto) 9.9 Eos % (Auto) 3.9 Baso % (Auto) 0.4 Neut # (Auto) 5.65 Lymph # (Auto) 1.1 [place] # (Auto) 0.8 Eos # (Auto) 0.3 Baso # (Auto) 0.0 Nucleated RBC % (a uto) 0 Nucleated RBCs # 0.0 Sodium 138 136 Potassium 4.9 4.5 Chloride 108 H 108 H Carbon Dioxide 18 L 17 L Anion Gap 16.9 15.5 BUN 98 H* 107 H* Creatinine 4.8 H 5.2 H GFR Calculation 12.5 L 11.4 L Glucose 98 118 H Calculated Osmolal ity 316 H 317 H Calcium 7.3 L 7.1 L Total Bilirubin 0.2 AST 22 ALT 20 Alkaline Phosphata se 91 Total Protein 5.7 L Albumin 2.2 L Globulin 3.5 Crossmatch 11/22/20 09:35 WBC RBC Hgb Hct MCV MCH MCHC RDW Plt Count MPV Neut % (Auto) Lymph % (Auto) [place] % (Auto) Eos % (Auto) Baso % (Auto) Neut # (Auto) Lymph # (Auto) [place] # (Auto) Eos # (Auto) Baso # (Auto) Nucleated RBC % (a uto) Nucleated RBCs # Sodium Potassium Chloride Carbon Dioxide Anion Gap BUN Creatinine GFR Calculation Glucose Calculated Osmolal ity Calcium Total Bilirubin AST ALT Alkaline Phosphata se Total Protein Albumin Globulin Crossmatch See Detail Vitals: Last Vital Signs Temp 98.1 F 11/23/20 11:50 Pulse 112 H 11/23/20 11:50 Resp 17 11/23/20 11:50 BP 99/68 11/23/20 11:50 Pulse Ox 97 11/23/20 11:50 Discharge Plan Discharge Patient Disposition: Home Condition: Stable Prescriptions: New folic acid 1 mg Tablet 1 mg PO DAILY 30 Days Qty: 30 RF: 0 No Action No Known Home Medications RF: 0 Discharge Orders: Discharge Order (Routine); Ordered 11/23/20 Ordered By: Rodolfo Padilla Other Ambulatory Orders: Basic Metabolic Panel (Routine) Timeframe: 1 Week Facility: [facility] - Location: Lab - Main Lab Ordered By: Rodolfo Padilla Complete Blood Count w/Auto (Routine) Timeframe: 1 Week Location: Determined by Patient Ordered By: Rodolfo Padilla Referrals: Ernst Turner MD [Referring] - 1 week (will call you for an appointment. ) Garry Linda MD [Physician] - 11/30/20 8:30 am Discharge Diet: Regular Discharge Activity: Resume usual activity Patient Instructions: Folic Acid (By mouth), Friedman Catheter Care, Urinary Retention in Men (GEN), Urinary Leg Bag (GEN), Opioid Safety Discharge Attestations Time Spent in Discharge Care*: less than 30 min Specific Discharge Activities: educating patient, educating and/or supporting family/caregiver, discussing with pcp/other providers, discussing with case operator/social workers/dc planners, documenting/other paperwork and evaluating patient/reviewing data Status at Discharge: Cognitive status at discharge: cognitively intact , Behavioral status at discharge: cooperative , Functional status at discharge: independent ambulation Overall status at discharge: patient is back to baseline Quality Metrics Clinical Quality Measures During this hospital stay, did patient experience: None Coding Level of Care Code Acute Chg FW ANA note Diagnoses Sepsis A41.9 Urinary retention R33.9 Elevated PSA R97.20 Sarcopenia M62.84 Protein calorie malnutrition E46 Hyperphosphatemia E83.39 Anemia D64.9 Obstructive uropathy N13.9 Bilateral hydronephrosis N13.30 Benign prostatic hyperplasia with urinary retention N40.1; R33.8 JAVED (acute kidney injury) N17.9 Acute pancreatitis K85.90 Metabolic acidosis E87.2
[2020-11-23 15:48] VITALS: BP 99/68; PULSE 112; RESP 17; TEMP 36.7; O2SAT 97
== END 2020-11-23 16:00 | disposition home or self-care (01) | DRG 682 ==
LOC: ER 18:22 → MEDSURG 18:52
PROVIDERS: Internal Medicine; Nurse Practitioner Family; Admitting Provider Internal Medicine; Emergency Provider Family Medicine; Visit Provider Internal Medicine
DX: N17.9 Acute kidney failure, unspecified (principal); K85.80 Other acute pancreatitis without necrosis or infection; A41.9 Sepsis, unspecified organism; N13.8 Other obstructive and reflux uropathy; E46 Unspecified protein-calorie malnutrition; Z68.1 Body mass index [BMI] 19.9 or less, adult; E87.2 Acidosis; N40.1 Benign prostatic hyperplasia with lower urinary tract symptoms; R33.8 Other retention of urine; N13.30 Unspecified hydronephrosis; E86.0 Dehydration; N28.9 Disorder of kidney and ureter, unspecified; D63.8 Anemia in other chronic diseases classified elsewhere; E83.39 Other disorders of phosphorus metabolism; E87.6 Hypokalemia; I95.9 Hypotension, unspecified; E05.90 Thyrotoxicosis, unspecified without thyrotoxic crisis or storm; M62.84 Sarcopenia
CPT/HCPCS: 36415; 36430; 51702; 71045; 74018; 74176; 80048; 80053; 80306; 81001; 81003; 82009; 82150; 82274; 82607; 82746; 83540; 83550; 83605; 83690; 83735; 84100; 84145; 84153; 84154; 84439; 84443; 84478; 84550; 85014; 85018; 85025; 86850; 86900; 86920; 87040; 87077; 87086; 87186; 87205; 87426; 93005; 96361; 96372; 96374; 97161; 97530; 99285; J0696; J1644; J2405; J3480; J7030; J7040; P9016; Q3014; Q4081

== ENCOUNTER 2021-01-11 10:19 | Inpatient (IN) | payer OTHER, SELFPAY ==
[2021-01-11] VITALS (89 sets, daily range): BP systolic 84–150; BP diastolic 52–98; PULSE 70–136; RESP 11–30; TEMP 34.6–36.8; O2SAT 94–100; BMI 17.6; BMI 17.1
--- NOTE | 2021-01-11 | SCC_ITS ---
Procedure Done: Placement of a tunneled 16 Mong[place] 23 cm HemoSplit hemodialysis catheter into the right internal jugular vein using intraoperative fluoroscopy and intraoperative ultrasound. 6.4 seconds of fluoroscopic guidance, for a cumulative dose of 0.51 mGy, was provided to Dr. Servin by the radiology department. C-arm images of the chest were saved for the patient's permanent record. [facility]
--- NOTE | 2021-01-11 10:39 | XR_ITS ---
WS: [id number] Portable AP upright chest, 01/11/2021 Clinical Data: dyspnea/cough Comparison: Portable chest, 11/21/2020. Findings: No nodules, masses or effusions are seen. The heart is normal. The pulmonary vascularity is not increased. No pneumonia or pneumothorax is seen. XR/XR chest 1V portable [id number] Impression: Negative chest.
--- NOTE | 2021-01-11 10:40 | ECG_ITS ---
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 Measurements Intervals [place] Rate: 90 P: 71 ME: 165 QRS: 79 QRSD: 119 T: 86 QT: 395 QTc: 484 Interpretive Statements SINUS RHYTHM WITH OCCASIONAL VENTRICULAR PREMATURE COMPLEXES MODERATE INTRAVENTRICULAR CONDUCTION DELAY [110+ ms QRS DURATION] NONSPECIFIC ST & T-WAVE ABNORMALITY Compared to ECG 11/22/2020 18:36:45 Ventricular premature complex(es) now present T-wave abnormality now present Myocardial infarct finding no longer present Heavy baseline artifact. Defective EKG Electronically Signed On 01-11-2021 20:35:39 CDT by Willy Marcus M.D. [id number]
--- NOTE | 2021-01-11 11:31 | W.ED.MALEGU ---
HPI - Male Genitourinary General: Chief complaint: Urogenital-Male Stated complaint: AMS Time Seen by Provider: 01/11/21 10:26 History of Present Illness: HPI Narrative: 60-year-old male directed to the emergency room by the urologist. He was seen couple weeks ago by Dr. Linda and started on self cath is not been able to do it and has a resulting UTI. Dr. Linda contacted us prior to sending the patient here the patient had a Friedman placed at Dr. Linda's office with purulent appearing urine at the time. He has a foul appearing urine in the leg bag that he presents here with his. Patient is extremely cachectic family reports a weight loss of in excess of 100 pounds in the last 3 years. Recently had been hospitalized at the end of October and was seeming to get a little better head gained some weight back to 140 pounds but now has been losing weight again. he denies any chest pain denies any shortness of breath. From discussing with him it does not sound as if he has had any kind of work-up for occult tumor. He does have a known history of acute kidney injury likely underlying chronic kidney disease. Onset (ago): week(s) Duration: constant Location: abdomen Severity: severe Quality: aching Relieving factors: urination (Improved after placement of Friedman catheter by urology) Context: other (Self-catheterization) Associated symptoms: Deny dysuria, nausea or vomiting Review of Systems Const: Denies: fever(s), chills, body aches, change in appetite, fatigue or malaise ENMT: Denies: throat pain, ear or mastoid pain, nasal discharge or nasal congestion Card: Denies: chest pain, edema, dyspnea on exertion or orthopnea Resp: Denies: dyspnea, productive cough or non-productive cough GI: Denies: abdominal pain, nausea, vomiting, hematemesis, coffee ground emesis, diarrhea, constipation, bloating, hematochezia or melena : Denies: flank pain, dysuria, urinary frequency or urinary urgency Skin/Breast: Denies: rash or pruritus [facility] ED PFSH: Medical History Acute pancreatitis Acute renal failure JAVED (acute kidney injury) Anemia Benign prostatic hyperplasia with urinary retention Bilateral hydronephrosis Elevated PSA Enlarged prostate Hyperphosphatemia Metabolic acidosis No pertinent past medical history 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 Obstructive uropathy Protein calorie malnutrition Sarcopenia Sepsis Urinary retention Surgical History History of tonsillectomy Family History Father , AT AGE 80 Heart abnormality Mother , AT AGE 37 Automobile accident Other Family history non-contributory Social History Alcohol intake: never Household members: spouse Marital status: Current occupational status: unemployed History of recent travel: No Physical Exam Const: GENERAL APPEARANCE: disheveled, lethargic and ill appearing NUTRITIONAL APPEARANCE: cachectic ORIENTATION/CONSCIOUSNESS: Yes awake, Yes oriented to person, Yes oriented to place, Yes oriented to time and Yes lethargic HENMT: COMMON NORMALS: normocephalic, atraumatic and hearing grossly normal bilaterally HEAD & SCALP: normocephalic and atraumatic Neck/C-Spine: COMMON NORMALS: no JVD Resp: COMMON NORMALS: normal respiratory effort, No retractions, No use of accessory muscles and clear to auscultation bilaterally AUSCULTATION: clear to auscultation bilaterally Cardio: COMMON NORMALS: no JVD, regular rate, regular rhythm and No murmurs present (Cardio) RATE: regular rate RHYTHM: regular rhythm GI: COMMON NORMALS: Soft to palpation and No hepatosplenomegaly present AUSCULTATION: Yes normoactive bowel sounds PALPATION: Yes Soft to palpation, No Tenderness to palpation present (GI), No Guarding due to palpation present (GI) and Yes No hepatosplenomegaly present Extremity: COMMON NORMALS: normal to inspection, capillary refill normal, no clubbing, cyanosis or edema, no calf tenderness and no pedal edema Neuro: SENSORIUM/ORIENTATION: Yes oriented to person, Yes oriented to place, Yes oriented to time and Yes lethargic Skin: COMMON NORMALS: no rashes or lesions noted GENERAL SKIN EXAM: no rashes or lesions noted Course Vital Signs: Vital signs: Vital Signs Temperature 97.0 F L 01/11/21 15:02 Pulse Rate 89 01/11/21 15:55 Respiratory Rate 14 01/11/21 15:55 Blood Pressure 143/76 01/11/21 15:55 Pulse Oximetry 100 01/11/21 15:55 MDM - Male MDM Narrative: Medical decision making narrative: Patient arrived with Friedman in place with Dr. Linda had put in. Consulted nephrology given his acute renal failure as well as surgery for renal dialysis catheter placement. Discussed with hospitalist orders written. Labs imaging and EKG reviewed as found on the chart. Lab Data: Labs: Lab Results 01/11/21 01/11/21 01/11/21 12:00 12:00 12:00 WBC 17.9 10^3/uL H 10 ^3/uL (4.0-10.0) RBC 3.06 10^6/uL L 10 ^6/uL (4.1-5.3) Hgb 8.9 g/dL L g/dL (11.7-16.6) Hct 28.6 % L % (42.0-52.0) MCV 93.5 fl fl (80-94) MCH 29.1 pg pg (28.0-34.0) MCHC 31.1 g/dL g/dL (30.0-36.0) RDW 16.8 % H % (12.1-15.1) Plt Count 413 10^3/cmm H 10 ^3/cmm (130-400) MPV 10.8 fL H fL (7.4-10.4) Neut % (Auto) 92.9 % % Lymph % (Auto) 2.5 % % [place] % (Auto) 3.1 % % Eos % (Auto) 0.0 % % Baso % (Auto) 0.2 % % Neut # (Auto) 16.64 10^3/uL H 1 0^3/uL (1.8-7.7) Lymph # (Auto) 0.5 10^3/uL L 10^ 3/uL (0.8-4.8) [place] # (Auto) 0.6 10^3/uL 10^3/ uL (0.2-0.9) Eos # (Auto) 0.0 10^3/uL 10^3/ uL (0.0-0.8) Baso # (Auto) 0.0 10^3/uL 10^3/ uL (0.0-0.1) Nucleated RBC % (a uto) 0 % % Nucleated RBCs # 0.0 /100WBC /100W BC Sodium 131 mmol/L L mmol /L (136-145) Potassium 5.9 mmol/L H mmol /L (3.5-5.1) Chloride 86 mmol/L L mmol/ L (98-107) Carbon Dioxide 5 mmol/L L* mmol/ L (22-29) Anion Gap 45.9 H (5-19) BUN 230 mg/dL H* D mg /dL (8-23) Creatinine 16.7 mg/dL H* mg/ dL (0.7-1.2) GFR Calculation 2.9 mL/min L mL/m in (90-130) Glucose 145 mg/dL H mg/dL (65-115) Calculated Osmolal ity 352 mOsm/kg H mOs m/kg (285-295) Lactic Acid 1.6 mmol/L mmol/L (0.5-2.2) Calcium 8.5 mg/dL mg/dL (8.5-10.5) Total Bilirubin 0.5 mg/dL mg/dL (0.15-1.2) AST 13 U/L U/L (0-40) ALT 14 U/L U/L (0-41) Alkaline Phosphata se 120 IU/L IU/L (40-130) Creatine Kinase 63 U/L U/L (39-308) Troponin T Baselin e Total Protein 7.7 g/dL g/dL (6.6-8.7) Albumin 3.7 g/dL g/dL (3.5-5.2) Globulin 4.0 g/dL g/dL (1.3-4.6) Lipase 434 U/L H U/L (13-60) 01/11/21 12:00 WBC RBC Hgb Hct MCV MCH MCHC RDW Plt Count MPV Neut % (Auto) Lymph % (Auto) [place] % (Auto) Eos % (Auto) Baso % (Auto) Neut # (Auto) Lymph # (Auto) [place] # (Auto) Eos # (Auto) Baso # (Auto) Nucleated RBC % (a uto) Nucleated RBCs # Sodium Potassium Chloride Carbon Dioxide Anion Gap BUN Creatinine GFR Calculation Glucose Calculated Osmolal ity Lactic Acid Calcium Total Bilirubin AST ALT Alkaline Phosphata se Creatine Kinase Troponin T Baselin e 57 ng/L H ng/L (0-15) Total Protein Albumin Globulin Lipase Discharge Plan Discharge Patient Disposition: Admitted As Inpatient Clinical Impression: Acute renal failure, Acute cystitis, Acute retention of urine Condition: Stable Coding Level of Care Code ED Technical Proposal Writer for Ashley Cruz
[2021-01-11] MEDS: levofloxacin-dextrose 5 % 750 MG/150 ML PREMIX 100 MG IV (11:52)
[2021-01-11] MEDS: ondansetron 2 mg/ML SDV 2 mL 4 MG IVP (11:53)
[2021-01-11 12:09] LABS: Basophils % 0.2 %; Hematocrit 28.6 % (42.0-52.0); Hemoglobin 8.9 g/dL (11.7-16.6); Lymphocytes # 0.5 10^3/uL (0.8-4.8); Lymphocytes % 2.5 %; Mean Corpuscular HGB Conc 31.1 g/dL (30.0-36.0); Mean Corpuscular Hemoglobin 29.1 pg (28.0-34.0); Mean Corpuscular Volume 93.5 fl (80-94); Mean Platelet Volume 10.8 fL (7.4-10.4); Monocytes # 0.6 10^3/uL (0.2-0.9); Monocytes % 3.1 %; Neutrophils # 16.64 10^3/uL (1.8-7.7); Neutrophils % 92.9 %; Nucleated Red Blood Cells % 0 %; Platelet Count 413 10^3/cmm (130-400); Red Blood Count 3.06 10^6/uL (4.1-5.3); Red Cell Distribution Width 16.8 % (12.1-15.1); White Blood Count 17.9 10^3/uL (4.0-10.0)
[2021-01-11 12:28] LABS: Lactic Sepsis W/Reflex 1.6 mmol/L (0.5-2.2)
[2021-01-11 12:41] LABS: Alanine Aminotransferase 14 U/L (0-41); Albumin Level 3.7 g/dL (3.5-5.2); Alkaline Phosphatase 120 IU/L (40-130); Anion Gap 45.9 (5-19); Aspartate Amino Transferase 13 U/L (0-40); Calcium 8.5 mg/dL (8.5-10.5); Chloride 86 mmol/L (98-107); Creatine Phosphokinase 63 U/L (39-308); Glomerular Filtration Rate 2.9 mL/min (90-130); Glucose 145 mg/dL (65-115); Potassium 5.9 mmol/L (3.5-5.1); Sodium 131 mmol/L (136-145); Total Bilirubin 0.5 mg/dL (0.15-1.2); Total Protein 7.7 g/dL (6.6-8.7)
[2021-01-11 12:45] LABS: Troponin(5th) Baseline 57 ng/L (0-15)
[2021-01-11] MEDS: sodium chloride 0.9% 1,769.01 ML 1769.01 ML IV (12:45)
[2021-01-11 12:47] LABS: Osmolality Calculated 352 mOsm/kg (285-295)
[2021-01-11 12:52] LABS: Carbon Dioxide 5 mmol/L (22-29)
[2021-01-11 12:53] LABS: Blood Urea Nitrogen 230 mg/dL (8-23); Lipase 434 U/L (13-60)
--- NOTE | 2021-01-11 12:54 | PC.PHAR ---
pt states he takes care of his own medications-pt states he stop taking his flomax 3 to 4 days ago- ext med history shows last filled on 12/29/20 30d/s-[facility]-pt states he normally doesnt take meds
--- NOTE | 2021-01-11 13:43 | P.CONIM_ITS ---
Providers/Reason For Consult Consulting Physician/Specialty*: General Surgery Clayton Servin MD Reason for Consult*: Urgent placement of long-term dialysis catheter. Requesting Physician: Dr. Alvin Pitts in the [facility] emergency department. Primary Care Provider: [facility] History of Present Illness History of Present Illness Kashmir West is a 60 year old male who presented to the emergency room today in renal failure. It sounds like he has had a history of some chronic renal issues and has been seen by Dr. Linda over the past couple of weeks after he was instructed to self catheterize. It sounds like this was difficult for him and he presented to Dr. Linda's office with an obvious urinary tract infection today, as a Friedman catheter was passed and purulent urine drained. He came to the emergency room where his creatinine was found to be over 16. I been asked to place a long-term dialysis catheter. Review of Systems General: Reports: 10 or more systems reviewed and unremarkable except in HPI and below Const: Reports: chills, change in weight (Patient has reportedly lost 100 pounds over the past 3 years.) and fatigue Meds/Allergies Home Medications and Allergies Home Medications Medication Instructions Recorded Confirmed Last Taken Type lidocaine HCl 2 % mucosal jelly See Rx Instructions INTRA-URETHRAL 01/05/21 01/11/21 Unknown Rx .COMPLEX #100 ml tamsulosin 0.4 mg PO BEDTIME 01/11/21 01/11/21 Unknown History Allergies Allergy/AdvReac Type Severity Reaction Status Date / Time No Known Allergies Allergy Verified 01/11/21 12:57 PFSH Acute PFSH: Medical History Acute pancreatitis Acute renal failure JAVED (acute kidney injury) Anemia Benign prostatic hyperplasia with urinary retention Bilateral hydronephrosis Elevated PSA Enlarged prostate Hyperphosphatemia Metabolic acidosis No pertinent past medical history 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 Obstructive uropathy Protein calorie malnutrition Sarcopenia Sepsis Urinary retention Surgical History (Updated 01/11/21 @ 13:45 by Clayton Servin MD) History of tonsillectomy Family History Father , AT AGE 80 Heart abnormality Mother , AT AGE 37 Automobile accident Other Family history non-contributory Social History (Updated 01/11/21 @ 13:51 by Clayton Servin MD) Alcohol intake: never Household members: spouse Marital status: Current occupational status: unemployed History of recent travel: No Vitals/I&O/Wt Last Vital Signs Temp 97.1 F L 01/11/21 10:48 Pulse 92 01/11/21 13:33 Resp 18 01/11/21 13:33 BP 150/98 01/11/21 13:33 Pulse Ox 100 01/11/21 13:33 Weight last 48 hrs Weight 130 lb Physical Exam Narrative: EXAM NARRATIVE: The patient was seen in his room in the emergency department. He is ill-appearing and is laying on his right side. He was able to slowly move onto his back when I asked him to. The pupils seem equal. No carotid bruits are heard. The patient is somewhat cachectic. The clavicles are visible bilaterally. The lungs are clear anteriorly. The heart seems regular. The abdomen is flat. The extremities reveal no edema. He can move all limbs to command but seems very slow to respond to my questions. Data Micro: Micro: Microbiology 01/11/21 12:01 Blood Culture - Pr eliminary Blood SPECIMEN [facility] DRE 01/11/21 12:00 Blood Culture - Pr eliminary Blood SPECIMEN [facility] Imaging^: CT Abd/Pel: Radiologist's impression: CT abdomen/pelvis 11/13/2020 IMPRESSION: Profound bilateral obstructive uropathy secondary to gross bladder distention which may be due to prostatic hypertrophy, prostatic carcinoma, or a transitional cell carcinoma that is not appreciated on this unenhanced examination. A&P Assessment and plan (1) Acute renal failure: I have discussed placement of a long-term dialysis catheter with the patient. Risks of bleeding, infection, thrombosis, pneumothorax with possible need for chest tube, etc. were all discussed. He seems to understand and indicates that he does not believe he has much of a choice at this point. He is agreeable to proceeding. The patient says he had some water a couple of hours ago but otherwise was n.p.o. I will make arrangements for urgent placement of a tunneled dialysis catheter for the patient in the operating room today. Status: Acute Consult Attestations Medical Necessity Statement: See admitting service's notation. Coding Level of Care Code Acute Steel Erector Apprentice for Ashley Cruz Diagnoses Acute renal failure N17.9
--- NOTE | 2021-01-11 13:43 | PM.CONSULT ---
Providers/Reason For Consult Consulting Physician/Specialty*: Caridad Anderson DO, telenephrology Reason for Consult*: CKD due to obstructive uropathy Primary Care Provider: [facility] History of Present Illness History of Present Illness Kashmir West is a 60 year old male diagnosed with obstructive uropathy. Seen briefly in ER prior to going to OR for tunneled dialysis catheter placement. Review of Systems General: Reports: ROS unobtainable due to mental status Const: Reports: change in weight (100# weight loss) Meds/Allergies Home Medications and Allergies Home Medications Medication Instructions Recorded Confirmed Last Taken Type lidocaine HCl 2 % mucosal jelly See Rx Instructions INTRA-URETHRAL 01/05/21 01/11/21 Unknown Rx .COMPLEX #100 ml tamsulosin 0.4 mg PO BEDTIME 01/11/21 01/11/21 Unknown History Allergies Allergy/AdvReac Type Severity Reaction Status Date / Time No Known Allergies Allergy Verified 01/11/21 12:57 PFSH Acute PFSH: Medical History Acute pancreatitis Acute renal failure JAVED (acute kidney injury) Anemia Benign prostatic hyperplasia with urinary retention Bilateral hydronephrosis Elevated PSA Enlarged prostate Hyperphosphatemia Metabolic acidosis No pertinent past medical history 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 Obstructive uropathy Protein calorie malnutrition Sarcopenia Sepsis Urinary retention Surgical History (Updated 01/11/21 @ 13:45 by Clayton Serivn MD) History of tonsillectomy Family History Father , AT AGE 80 Heart abnormality Mother , AT AGE 37 Automobile accident Other Family history non-contributory Social History (Updated 01/11/21 @ 13:51 by Clayton Servin MD) Alcohol intake: never Household members: spouse Marital status: Current occupational status: unemployed History of recent travel: No Vitals/I&O/Wt Last Vital Signs Temp 97.1 F L 01/11/21 10:48 Pulse 92 01/11/21 13:33 Resp 18 01/11/21 13:33 BP 150/98 01/11/21 13:33 Pulse Ox 100 01/11/21 13:33 Weight last 48 hrs Weight 58.967 kg Physical Exam Const: GENERAL APPEARANCE: ill appearing and appears older than stated age NUTRITIONAL APPEARANCE: cachectic Data Micro: Micro: Microbiology 01/11/21 12:01 Blood Culture - Pr eliminary Blood SPECIMEN [facility] DRE 01/11/21 12:00 Blood Culture - Pr eliminary Blood SPECIMEN [facility] Imaging^: CT Abd/Pel: Radiologist's impression: 11/13/2020 Grossly distended urinary bladder, markedly dilated distal ureters. Significantly enlarged prostate gland with a large median lobe. No other pelvic mass, adenopathy, or focal fluid collection, or free fluid. No bony abnormality. A&P Additional A&P Information 1. Obstructive uropathy with likely ESRD, probable UTI 2. Metabolic acidosis due to uremia, AG 40 3. Hyperkalemia 4. Hyponatremia 5. Anemia 6. Hypertension Recommend: IV NaHCO3. Placement dialysis catheter. 2h HD today, 2K bath, 30 Bicarb, no fluid removal. HD again tomorrow. Iron studies, phos, 25(OH)D, PTH. U/A C&S. Urology evaluation. Consult Attestations Medical Necessity Statement: see above - critically ill Time Spent in Patient Care: 16 - 35 minutes Coding Level of Care Code Acute Tile Mechanic Helper for Ashley Cruz
--- NOTE | 2021-01-11 14:02 | SC_ITS ---
WS: [id number] C-arm fluoroscopy for insertion of right dialysis catheter. Clinical Data: intra-op Comparison: None. Findings: Dr. Giraldo inserts a right dialysis catheter. SC/C-arm FL for CVA [id number] Impression: Right dialysis catheter.
--- NOTE | 2021-01-11 14:21 | ANES.PREANE2 ---
Pre-Anesthetic Assessment Pre-Anesthetic Assessment: Height/Weight: Height 1.83 m Weight 58.967 kg Temp Pulse Resp BP Pulse Ox 97.1 F L 92 20 H 135/77 100 01/11/21 14:15 01/11/21 14:15 01/11/21 14:15 01/11/21 14:15 01/11/21 14:15 Proposed Procedure: Operation Date: 01/11/21 14:15 Proposed Procedures p Dialysis Catheter Insertion(Not Applicable) - Clayton Servin MD Was Beta Catherine taken within 24 hours: N/A Was Clonidine taken within 24 hours: N/A Social: Social History: No alcohol and No tobacco Exam: Pre-Anes Outpt Exam: alert, oriented x 3, clear to auscultation bilaterally and regular rate & rhythm Airway: Submandibular: WNL Cervical ROM: WNL MP: 2 Dentition: Chipped Additional comments: Poor dentition, missing several CV/HEM: CV/HEM: Anemia and HTN : : Chronic renal Insufficiency Comments: ARF, obstructive uropathy, urosepsis Anesthetic Plan: ASA status: 4E Anesthesia: MAC Risk of > 500 ml blood loss (7ml/kg in children): No PFSH Anesthesia PFSH: Medical History Acute pancreatitis Acute renal failure JAVED (acute kidney injury) Anemia Benign prostatic hyperplasia with urinary retention Bilateral hydronephrosis Elevated PSA Enlarged prostate Hyperphosphatemia Metabolic acidosis No pertinent past medical history 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 Obstructive uropathy Protein calorie malnutrition Sarcopenia Sepsis Urinary retention Surgical History (Updated 01/11/21 @ 13:45 by Clayton Servin MD) History of tonsillectomy Family History Father , AT AGE 80 Heart abnormality Mother , AT AGE 37 Automobile accident Other Family history non-contributory Social History (Updated 01/11/21 @ 13:51 by Clayton Servin MD) Alcohol intake: never Household members: spouse Marital status: Current occupational status: unemployed History of recent travel: No Data Anesthesia CBC & Chem 7: 01/11/21 12:00 01/11/21 12:00 Other Labs: Laboratory Results - last 48 hr 01/11/21 01/11/21 01/11/21 12:00 12:00 12:00 WBC 17.9 H RBC 3.06 L Hgb 8.9 L Hct 28.6 L MCV 93.5 MCH 29.1 MCHC 31.1 RDW 16.8 H Plt Count 413 H MPV 10.8 H Neut % (Auto) 92.9 Lymph % (Auto) 2.5 [place] % (Auto) 3.1 Eos % (Auto) 0.0 Baso % (Auto) 0.2 Neut # (Auto) 16.64 H Lymph # (Auto) 0.5 L [place] # (Auto) 0.6 Eos # (Auto) 0.0 Baso # (Auto) 0.0 Nucleated RBC % (auto) 0 Nucleated RBCs # 0.0 Sodium 131 L Potassium 5.9 H Chloride 86 L Carbon Dioxide 5 L* Anion Gap 45.9 H BUN 230 H* D Creatinine 16.7 H* GFR Calculation 2.9 L Glucose 145 H Calculated Osmolality 352 H Lactic Acid 1.6 Calcium 8.5 Total Bilirubin 0.5 AST 13 ALT 14 Alkaline Phosphatase 120 Creatine Kinase 63 Troponin T Baseline Total Protein 7.7 Albumin 3.7 Globulin 4.0 Lipase 434 H 01/11/21 12:00 WBC RBC Hgb Hct MCV MCH MCHC RDW Plt Count MPV Neut % (Auto) Lymph % (Auto) [place] % (Auto) Eos % (Auto) Baso % (Auto) Neut # (Auto) Lymph # (Auto) [place] # (Auto) Eos # (Auto) Baso # (Auto) Nucleated RBC % (auto) Nucleated RBCs # Sodium Potassium Chloride Carbon Dioxide Anion Gap BUN Creatinine GFR Calculation Glucose Calculated Osmolality Lactic Acid Calcium Total Bilirubin AST ALT Alkaline Phosphatase Creatine Kinase Troponin T Baseline 57 H Total Protein Albumin Globulin Lipase Micro: Microbiology 01/11/21 12:01 Blood Culture - Preliminary Blood SPECIMEN COLLECTED 01/11/21 12:00 Blood Culture - Preliminary Blood SPECIMEN COLLECTED Cardiac Studies: No Data to Display
[2021-01-11] MEDS: heparin, porcine 1,000 unit/mL INJ 10 mL 10000 UNIT HE (14:49)
--- NOTE | 2021-01-11 14:58 | PM.OP ---
Operative Report Date of procedure: January 11, 2021 Pre-op Diagnosis: Acute renal failure requiring dialysis/chronic kidney disease. Post-op diagnosis: same Procedure Done: Placement of a tunneled 16 Jamaican 23 cm HemoSplit hemodialysis catheter into the right internal jugular vein using intraoperative fluoroscopy and intraoperative ultrasound. Pathology: none sent Surgeon: Clayton Servin Anesthesia: MAC Estimated blood loss (mL): 5 Complications: None. Condition: stable Disposition: PACU Procedure: The patient was brought to the operating room and was placed in a supine position on the operating room table. A monitored anesthetic was induced. The right side of the neck and chest were prepped and draped in a sterile fashion. Intraoperative ultrasound was used to find the right internal jugular vein as evidenced by its size and compressibility. 1% lidocaine was used for local anesthetic on the neck and the right internal jugular vein was accessed with a needle and syringe as evidenced by the return of dark nonpulsatile blood. The guidewire was easily passed down the needle and the needle was removed. The C-arm was positioned and showed the guidewire extending down the vena cava. A 16 Jamaican HemoSplit long-term dialysis catheter was then placed on the right side of the chest and measured so that the subcutaneous cuff would be an appropriate location in the subcutaneous tunnel. A combination of 1% lidocaine and 0.5% bupivacaine with 1-200,000 parts epinephrine was used to anesthetize a subcutaneous tract from the right chest wall to the right side of the neck over the top of the clavicle. A small incision was made on the chest wall at the proposed exit point and a small incision was also made adjacent to the guidewire on the right side of the neck. The HemoSplit catheter was then tunneled from the small incision on the chest to the small incision on the right side of the neck using the passer provided in the kit. Small to medium sized dilators were then placed over the guidewire to dilate the skin opening and the subcutaneous tissue. The introducer and sheath were then passed over the guidewire easily into the right internal jugular vein. The guidewire and introducer were removed and the arms of the HemoSplit dialysis catheter were easily passed down the sheath which was then torn away. The C-arm was once again positioned and showed good placement of the dialysis catheter tip in the vena cava. Both ports were aspirated and flushed with hep flush solution. Both ports showed excellent flow and were then left filled with concentrated hep flush solution. The catheter was sewn in place at the skin on the chest with some sutures of 3-0 Prolene. The small incision on the right side of the neck was closed using some interrupted inverted sutures of 4-0 Vicryl. The incision on the neck was covered with some Dermabond. A sterile dressing was placed over the HemoSplit exit site on the chest. The patient was taken back to the recovery area postoperatively in stable condition. INTRAOPERATIVE FLUOROSCOPY interpretation: FINDINGS: Intraoperative fluoroscopic images of a hemodialysis catheter placement were reviewed. An initial image reveals a guidewire entering the right internal jugular vein and extending down the vena cava. Subsequent images reveal a dialysis catheter on that side of the chest with its tubing tip in good location in the superior vena cava. No obvious pneumothorax is identified.
--- NOTE | 2021-01-11 15:28 | ECG_ITS ---
[facility] Test Date: 2021-01-11 Pat Name: Kashmir West Department: Room: Gender: Male Presales Senior Specialist: : 1960 Requested By: Everette Contreras Order Number: [id number] Mar MD: Willy Marcus M.D. Measurements Intervals Clear Rate: 91 P: 84 AR: 165 QRS: 69 QRSD: 102 T: 92 QT: 407 QTc: 501 Interpretive Statements SINUS RHYTHM WITH OCCASIONAL VENTRICULAR PREMATURE COMPLEXES ST DEPRESSION, CONSIDER SUBENDOCARDIAL INJURY [0.1+ mV ST DEPRESSION] Compared to ECG 01/11/2021 11:34:22 ST (T wave) deviation now present Intraventricular conduction delay no longer present T-wave abnormality no longer present Electronically Signed On 01-11-2021 20:42:24 CDT by Willy Marcus M.D. [id number]
--- NOTE | 2021-01-11 16:01 | ANE.PACU2 ---
Inpatient post-anesthesia follow up: Airway intact: Yes Vital signs: Temperature 97.0 F Pulse Rate [Right Radial] 70 Pulse Rate 85 Respiratory Rate 14 Blood Pressure [Le ft Arm] 85/60 Blood Pressure 145/84 Pulse Oximetry 100 Oxygen Delivery Me thod Room Air Oxygen Flow Rate Fraction of Inspir ed Oxygen Hydration adequate: Yes Nausea and vomiting: No Pain level: 2 Mental status: Baseline
[2021-01-11] MEDS: insulin regular-human 100 units/1 mL 10 UNIT IVP (16:13)
[2021-01-11] MEDS: calcium gluconate 0.1 gm/mL 10% SDV 10mL 1 GM IVP (16:15)
[2021-01-11] MEDS: dextrose 50% syringe 50 mL IVP (16:15)
--- NOTE | 2021-01-11 16:18 | PM.HP ---
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 Currently patient is alert oriented to person, place, to time, he was seen in the postop recovery room. He tells me that he was not able to self cath himself since his hospital discharge, as his supplies for self cathing himself had not arrived, he stopped paying attention to it he tells me, he tells me that he has not been eating well, he tells me that recently has been drinking 2 L of Coke a day, denies drinking alcohol, denies any drug use, denies a history of smoking, no fevers, chills, nausea, vomiting, no known exposure to COVID-19. Patient followed up with Dr. Linda today, and he was found to have significant bladder distention, Friedman catheter placement yielded serosanguineous urine, he was sent to [facility] for further evaluation, and [facility], he was found to have acute renal failure with hyperkalemia, uremia, UTI, elevated troponins, elevated lipase, nephrology was consulted, general surgery was consulted, patient was taken to the operating room for a dialysis catheter placement, now awaiting urgent dialysis. In the postop recovery room, he was complaining of some chest pain, EKG yielded ST depressions in the anterior leads, patient's last potassium was 5.9, I gave him another 10 units of IV insulin, with amp of D50, with 1 g of calcium gluconate. We will continue to monitor, currently alert and oriented x3, no complaints of chest pain, no shortness of breath follows all commands Review of Systems Const: Reports: fatigue and malaise; Denies: fever(s) or chills Eyes: Denies: change in vision or blurry vision ENMT: Denies: nasal congestion Card: Reports: chest pain; Denies: palpitations, irregular heart rhythm, edema, syncope or pre-syncope Resp: Denies: dyspnea, productive cough, non-productive cough or wheezing GI: Denies: abdominal pain, nausea, vomiting, hematemesis, diarrhea, constipation, hematochezia or melena : Reports: flank pain, difficulty urinating and dysuria; Denies: urinary frequency Musc: Denies: neck pain or back pain Skin/Breast: Reports: rash Neuro: Denies: headache(s) Endo: Denies: polyuria or polydipsia Medications/Allergies Home Medications Medication Instructions Recorded Confirmed Last Taken Type lidocaine HCl 2 % mucosal jelly See Rx Instructions INTRA-URETHRAL 01/05/21 01/11/21 Unknown Rx .COMPLEX #100 ml tamsulosin 0.4 mg PO BEDTIME 01/11/21 01/11/21 Unknown History Allergies Allergy/AdvReac Type Severity Reaction Status Date / Time No Known Allergies Allergy Verified 01/11/21 12:57 PFSH Acute PFSH: Medical History Acute pancreatitis Acute renal failure JAVED (acute kidney injury) Anemia Benign prostatic hyperplasia with urinary retention Bilateral hydronephrosis Elevated PSA Enlarged prostate Hyperphosphatemia Metabolic acidosis No pertinent past medical history 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 Obstructive uropathy Protein calorie malnutrition Sarcopenia Sepsis Urinary retention Surgical History History of tonsillectomy Family History Father , AT AGE 80 Heart abnormality Mother , AT AGE 37 Automobile accident Other Family history non-contributory Social History Alcohol intake: never Household members: spouse Marital status: Current occupational status: unemployed History of recent travel: No Vitals/I&O/Wt Last Vital Signs Temp 97.0 F L 01/11/21 15:02 Pulse 134 H 01/11/21 16:15 Resp 20 H 01/11/21 16:15 BP 134/81 01/11/21 16:15 Pulse Ox 100 01/11/21 16:15 01/11/21 01/11/21 01/11/21 06:59 14:59 22:59 Intake Total 60 / 60 500 / 560 Output Total 2 / 2 Balance 60 / 60 498 / 558 Weight last 48 hrs Weight 58.967 kg Physical Exam Const: COMMON NORMALS: no acute distress GENERAL APPEARANCE: cooperative, comfortable and frail appearing ORIENTATION/CONSCIOUSNESS: Yes awake, Yes oriented to person, Yes oriented to place and Yes oriented to time OTHER: Temporal muscle wasting Eye: COMMON NORMALS: Equal, round and reactive pupils present OTHER: Right eye, glass eye Neck/C-Spine: COMMON NORMALS: full ROM and no lymphadenopathy THYROID: Thyroid normal Lymph: LYMPHATIC: no lymphadenopathy noted Resp: COMMON NORMALS: normal respiratory effort, No retractions, No use of accessory muscles and clear to auscultation bilaterally AUSCULTATION: clear to auscultation bilaterally Cardio: COMMON NORMALS: regular rate, regular rhythm, S1 normal heart sound present, S2 normal heart sound present, No gallops present (Cardio), No clicks present (Cardio) and No murmurs present (Cardio) RATE: regular rate RHYTHM: regular rhythm HEART SOUNDS: S1 normal heart sound present and S2 normal heart sound present GI: COMMON NORMALS: Normal to inspection, nondistended, normoactive bowel sounds present, Soft to palpation, non-tender and No hepatosplenomegaly present Extremity: COMMON NORMALS: normal to inspection, full ROM and no pedal edema Neuro: COMMON NORMALS: patient oriented x3, CN's II-XII intact bilaterally, moves all extremities and no focal motor deficits Psych: COMMON NORMALS: mental status grossly normal, Normal thought process present and cooperative THOUGHT PROCESS: Normal thought process present Data : 01/11/21 12:00 01/11/21 12:00 Micro: Microbiology 01/11/21 12:01 Blood Culture - Preliminary Blood SPECIMEN COLLECTED 01/11/21 12:00 Blood Culture - Preliminary Blood SPECIMEN COLLECTED A&P Assessment and plan (1) 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: Postobstructive uropathy with JAVED Plan: -Friedman cath placed -Currently on IV antibiotics Zosyn -Follow blood cultures, urine cultures -Continue gentle IV hydration -Heparin for DVT prophylaxis -Full code Acute renal failure, likely secondary to obstructive uropathy -However patient would benefit from a renal biopsy as outpatient -JENNIFER, ESR, TSH, A1c, monitor blood pressures -Plan hemodialysis -Nephrology on consult Uremia, alert oriented x3, has some degree of uremic mario on the hand, the face Hyperkalemia with complaints of chest pain EKG showed ST depressions in anterior leads, will give another 10 units IV insulin, D50, calcium gluconate Acute cystitis, Zosyn as above NSTEMI -Baseline troponin 57, EKG shows ST depressions in anterior leads, no cardiovascular history -Likely secondary to hyperkalemia as above -Continue telemetry monitoring -We will order cardiac echocardiogram Normocytic anemia, likely secondary to poor oral intake, acute renal failure Anorexia, protein calorie malnutrition -Likely secondary acute renal failure -We will order celiac panel, JENNIFER, ESR, TSH, A1c -We will consult nutrition Elevated lipase, no complaints of abdominal pain, likely acute on chronic pancreatitis from malnutrition -N.p.o., IV fluids Status: Acute (2) Benign prostatic hyperplasia with urinary retention: Status: Acute (3) Acute retention of urine: Status: Acute (4) Acute cystitis: Status: Acute (5) Acute renal failure: Status: Acute (6) NSTEMI (non-ST elevated myocardial infarction): Status: Acute (7) Chest pain: Status: Acute (8) Acute uremia: Status: Acute Attestations Medical Necessity Statement*: Patient requires hospitalization for post reduction uropathy, acute renal failure, uremia, hyperkalemia, NSTEMI, anorexia inpatient, greater than 2 minutes, ICU admission Coding Level of Care Code Acute Client Manager [employer] for [facility] Fwd Diagnoses 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 N13.9 Benign prostatic hyperplasia with urinary retention N40.1; R33.8 Acute retention of urine R33.8 Acute cystitis N30.00 Acute renal failure N17.9 NSTEMI (non-ST elevated myocardial infarction) I21.4 Chest pain R07.9 Acute uremia N19
[2021-01-11] MEDS: metoprolol tartrate 1 mg/1 mL SDV 5 mL IVP ×3 (16:35→16:53)
[2021-01-11 17:15] LABS: Glucose Point of Care 150 mg/dL (70-110)
[2021-01-11 17:15] LABS: Glucose Point of Care 242 mg/dL (70-110)
[2021-01-11 17:37] LABS: Troponin(5th) Baseline 48 ng/L (0-15)
--- NOTE | 2021-01-11 17:59 | PC.NURSE ---
1720 Pt arrived from surgery to ICU8. Pt able to move self from stretcher to bed. Connected to ICU monitors, VSS. AAOx4, makes all needs known. Denies pain or SOB. PIV to R wrist. Friedman cath in place draining freely to BSD Tunneled vas cath in place,, dressing c/d/i. Physical assessment completed. No issues noted. Will monitor.
[2021-01-11 18:03] LABS: Glucose Point of Care 69 mg/dL (70-110)
[2021-01-11] MEDS: heparin 5,000 unit/mL INJ 1 mL 5000 UNIT SUBCUT (18:05)
[2021-01-11] MEDS: piperacillin-tazobactam 3.375 GM in sodium chloride 0.9% (plus) 50 ML IV (18:06)
[2021-01-11] MEDS: dextrose 5%-sod chloride 0.9% 1,000 ML 75 ML IV (18:06)
--- NOTE | 2021-01-11 19:00 | SUR.PREOP ---
1715 patient to icu at this time. a/ox3. rr even and unlabored. no distress. patient assisted from stretcher to bed, icu nurse at bedside.
[2021-01-11 19:05] LABS: Glucose Point of Care 55 mg/dL (70-110)
[2021-01-11 20:27] LABS: Anion Gap 37.1 (5-19); Calcium 7.7 mg/dL (8.5-10.5); Chloride 92 mmol/L (98-107); Glomerular Filtration Rate 3.6 mL/min (90-130); Glucose 44 mg/dL (65-115); Potassium 5.1 mmol/L (3.5-5.1); Sodium 130 mmol/L (136-145)
[2021-01-11] MEDS: sodium bicarbonate 650 mg Tablet PO (20:30)
[2021-01-11 20:47] LABS: Osmolality Calculated 340 mOsm/kg (285-295)
[2021-01-11 20:49] LABS: Blood Urea Nitrogen 218 mg/dL (8-23); Carbon Dioxide 6 mmol/L (22-29)
[2021-01-11 21:48] LABS: Glucose Point of Care 93 mg/dL (70-110)
[2021-01-11 21:48] LABS: Glucose Point of Care 78 mg/dL (70-110)
[2021-01-11 21:52] LABS: Procalcitonin 2.94 ng/mL (0-0.5); Thyroid Stimulating Hormone 0.71 uIU/mL (0.27-4.20)
[2021-01-11 22:03] LABS: C Reactive Protein 32.8 mg/L (0.0-4.9); Creatine Phosphokinase 86 U/L (39-308)
[2021-01-11 22:16] LABS: Estmated Average Glucose 111; Hemoglobin A1C 5.5 % (4.0-6.0)
[2021-01-11 22:22] LABS: Troponin 5 2HR 66.28 ng/L (0-15)
[2021-01-11 22:26] LABS: Troponin 5 2HR Delta 18.28 ABS# (0-10)
[2021-01-11 23:14] LABS: Hepatitis B Surface Antigen Non-Reactive (Nonreactive); Hepatitis C Virus Antibody Non-Reactive (Nonreactive)
[2021-01-11 23:32] LABS: Hepatitis B Surface AB > 1000.0 (11.5-1000)
--- NOTE | 2021-01-11 23:38 | ECG_ITS ---
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1960 Requested By: Alma Dickey Order Number: [id number] Reading MD: ALLY JOYA Measurements Intervals [place] Rate: 109 P: 77 CT: 149 QRS: 77 QRSD: 88 T: 89 QT: 364 QTc: 491 Interpretive Statements SINUS TACHYCARDIA WITH OCCASIONAL VENTRICULAR PREMATURE COMPLEXES NONSPECIFIC ST & T-WAVE ABNORMALITY ABNORMAL RHYTHM ECG INTERPRETATION BASED ON A DEFAULT AGE OF 40 YEARS Compared to ECG 01/11/2021 15:37:08 T-wave abnormality now present Sinus rhythm no longer present ST (T wave) deviation no longer present Electronically Signed On 01-12-2021 15:42:00 CDT by ALLY JOYA [id number] f
[2021-01-12] VITALS (108 sets, daily range): BP systolic 93–169; BP diastolic 59–98; PULSE 67–123; RESP 0–30; TEMP 35.2–37.2; O2SAT 97–100
[2021-01-12 01:46] LABS: Glucose Point of Care 95 mg/dL (70-110)
[2021-01-12 01:46] LABS: Glucose Point of Care 85 mg/dL (70-110)
[2021-01-12] MEDS: heparin 5,000 unit/mL INJ 1 mL 5000 UNIT SUBCUT ×2 (03:51→15:47)
[2021-01-12] MEDS: ondansetron 2 mg/ML SDV 2 mL 4 MG IVP ×3 (03:55→20:06)
[2021-01-12 04:03] LABS: Lymphocytes # 0.4 10^3/uL (0.8-4.8); Lymphocytes % 3.7 %; Mean Corpuscular HGB Conc 34.8 g/dL (30.0-36.0); Mean Corpuscular Hemoglobin 29.7 pg (28.0-34.0); Mean Corpuscular Volume 85.4 fl (80-94); Mean Platelet Volume 10.2 fL (7.4-10.4); Monocytes # 0.6 10^3/uL (0.2-0.9); Monocytes % 5.2 %; Neutrophils # 10.68 10^3/uL (1.8-7.7); Neutrophils % 89.9 %; Nucleated Red Blood Cells % 0 %; Platelet Count 261 10^3/cmm (130-400); Red Blood Count 2.12 10^6/uL (4.1-5.3); Red Cell Distribution Width 15.7 % (12.1-15.1); White Blood Count 11.9 10^3/uL (4.0-10.0)
[2021-01-12 04:11] LABS: Hematocrit 18.1 % (42.0-52.0); Hemoglobin 6.3 g/dL (11.7-16.6)
[2021-01-12 04:31] LABS: Troponin T (5th) Once 98 ng/L (0-15)
[2021-01-12 04:32] LABS: Parathyroid Hormone 232.3 pg/mL (15-65)
[2021-01-12 04:39] LABS: 25 Hydroxy Vitamin D 33 ng/mL (30-100); Alanine Aminotransferase 9 U/L (0-41); Albumin Level 2.9 g/dL (3.5-5.2); Alkaline Phosphatase 86 IU/L (40-130); Anion Gap 25.8 (5-19); Aspartate Amino Transferase 16 U/L (0-40); Calcium 7.9 mg/dL (8.5-10.5); Carbon Dioxide 14 mmol/L (22-29); Chloride 99 mmol/L (98-107); Chol HDL Ratio 5.46 mg/dL (1.0-5.00); Cholesterol 142 mg/dL (0-200); Creatine Phosphokinase 85 U/L (39-308); Ferritin 172 ng/mL (30-400); Globulin 3.6 g/dL (1.3-4.6); Glomerular Filtration Rate 7.3 mL/min (90-130); Glucose 99 mg/dL (65-115); HDL Cholesterol 26 mg/dL (60-100); Iron 115 ug/dL (59-158); LDL Cholesterol Calculated 97 mg/dL (50-129); LDL HDL Ratio 3.73 RATIO (0.00-3.22); Magnesium 1.8 mg/dL (1.7-2.3); NT Pro B Type Natriuretic Pept 3996 pg/mL (0-125); Osmolality Calculated 312 mOsm/kg (285-295); Percent Saturation 63.5 % (20-50); Phosphorus 5.7 mg/dL (2.5-4.5); Potassium 3.8 mmol/L (3.5-5.1); Sodium 135 mmol/L (136-145); Thyroid Stimulating Hormone 1.42 uIU/mL (0.27-4.20); Total Bilirubin 0.5 mg/dL (0.15-1.2); Total Iron Binding Capacity 181 mcg/dl; Total Protein 6.5 g/dL (6.6-8.7); Triglycerides 97 mg/dL (0-150); Unsaturated Iron Binding 66 ug/dL (112-347); Vitamin B12 1816 pg/mL (232-1245)
[2021-01-12 04:43] LABS: INR 1.13 (0.8-1.2)
[2021-01-12 04:44] LABS: Blood Urea Nitrogen 103 mg/dL (8-23)
[2021-01-12] MEDS: piperacillin-tazobactam 3.375 GM in sodium chloride 0.9% (plus) 50 ML IV ×2 (04:59→16:02)
[2021-01-12] MEDS: dextrose 5%-sod chloride 0.9% 1,000 ML 75 ML IV ×2 (04:59→15:42)
[2021-01-12 05:15] LABS: Cortisol Random 25.34 ug/dL (2.47-19.5)
[2021-01-12 05:19] LABS: Calcium 7.9 mg/dL (8.5-10.5)
--- NOTE | 2021-01-12 06:32 | PC.NURSE ---
Shift Note Frequent safety and comfort rounds continue. Orders and/or nursing care completed as indicated. Patient monitored for response to intervention and treatment(s). Education provided includes medications with side effects, HD treatment, S/S to report. Patient and/or sales representative groceries verbalized understanding of education. Patient began shift being A&Ox4, answering questions appropriately. Post HD treatment patient became increasing confused, only answering questions with yeah and eyes wondering around room, pulling off gown and restless. Throughout the shift patients mental status improved, A&Ox4, answering question appropriately. He did vomit green bile and prn zofran given, nausea improved. Critical labs reported to MD and charted appropriately. Will continue to monitor.
[2021-01-12] MEDS: sodium chloride 0.9% 250 ML 100 ML IV (07:35)
--- NOTE | 2021-01-12 07:48 | PC.NURSE ---
0700 Report received, assessment completed. Pt AAOx4, VSS. Pt awaiting blood product. Friedman cath draining freely. Makes all needs known. 0735 Blood product verified at bedside. Started per protocol. VSS. 0750 VSS stable, no reaction noted. Will monitor.
[2021-01-12 08:08] LABS: Glucose Point of Care 97 mg/dL (70-110)
[2021-01-12 08:08] LABS: Glucose Point of Care 110 mg/dL (70-110)
--- NOTE | 2021-01-12 09:22 | PC.NURSE ---
Starting infusion rate 125ml, tolerated well. Increased to 150ml/h at 0900. Tolerating well. VSS. No s/s of fluid overload.
--- NOTE | 2021-01-12 09:41 | P.PN_ITS ---
Subjective Subjective: Interval history: N/V this AM; hypotension during dialysis yesterday responded to IVF Medications: Reviewed: Yes Vitals/I&O/Wt Last Vital Signs Temp 98.2 F 01/12/21 09:38 Pulse 92 01/12/21 09:38 Resp 16 01/12/21 09:38 BP 131/78 01/12/21 09:38 Pulse Ox 100 01/12/21 09:38 01/11/21 01/12/21 01/12/21 22:59 06:59 14:59 Intake Total 2687.01 / 2747.01 1516.25 / 4263.26 58.333 / 58.333 Output Total 552 / 552 721 / 1273 Balance 2135.01 / 2195.01 795.25 / 2990.26 58.333 / 58.333 Weight last 48 hrs Weight 57.2 kg Weight 57.266 kg Weight 58.967 kg Physical Exam Const: COMMON NORMALS: no acute distress; negative for well nourished GENERAL APPEARANCE: cooperative NUTRITIONAL APPEARANCE: cachectic Neck/C-Spine: OTHER: tunneled IJ HD catheter Resp: COMMON NORMALS: normal respiratory effort and clear to auscultation b ilaterally AUSCULTATION: clear to auscultation bilaterally Cardio: COMMON NORMALS: regular rhythm RHYTHM: regular rhythm HEART SOUNDS: no rubs Extremity: COMMON NORMALS: no pedal edema Data : 01/12/21 03:50 01/12/21 03:50 Other Labs: PTH 232 pg/mL, albumin 2.9, poornima Ca 8.7, Mg 1.8 Fe replete Micro: Microbiology 01/11/21 12:01 Blood Culture - Preliminary Blood SPECIMEN COLLECTED 01/11/21 12:00 Blood Culture - Preliminary Blood SPECIMEN COLLECTED A&P Additional A&P Information 1. Obstructive uropathy with likely ESRD, probable UTI, urine output 1150/24h. urine results not available. Elevated PSA, possible prostate cancer 2. Metabolic acidosis due to uremia, improving. Discontinue oral NaHCO3 due to N/V 3. Hyperkalemia, resolved. May need to replace K as acidosis continues to improve 4. Hyponatremia, resolved 5. Anemia. Iron replete. Received 1u pRBC this morning, will start epogen at HD 6. Secondary hyperparathyroidism: begin calcitriol Recommend: 2.5h HD today, 3K bath, 30 Bicarb, no fluid removal. Discharge planning: outpatient dialysis unit referral. Attestations Medical Necessity Statement*: see above Time Spent in Patient Care: 16 - 35 minutes Coding Level of Care Code Acute Multi Skilled Operator for [facility]
--- NOTE | 2021-01-12 11:02 | P.PN_ITS ---
Subjective Subjective: Interval history: Yesterday evening patient did have episodes of paroxysmal atrial fibrillation, likely secondary to uremia and hyperkalemia, resolved with metoprolol, remains in normal sinus rhythm This morning patient was examined, he had 1 episode no fevers, no chills, no nausea, vomiting, he tells me he feels a lot better, no chest pain, no palpitations, no shortness of breath Vitals/I&O/Wt Last Vital Signs Temp 98.2 F 01/12/21 10:05 Pulse 92 01/12/21 10:05 Resp 12 01/12/21 10:05 BP 130/71 01/12/21 10:05 Pulse Ox 100 01/12/21 10:05 01/11/21 01/12/21 01/12/21 22:59 06:59 14:59 Intake Total 2687.01 / 2747.01 1516.25 / 4263.26 508.333 / 508.333 Output Total 552 / 552 721 / 1273 Balance 2135.01 / 2195.01 795.25 / 2990.26 508.333 / 508.333 Weight last 48 hrs Weight 57.2 kg Weight 57.266 kg Weight 58.967 kg Physical Exam Const: COMMON NORMALS: no acute distress and patient oriented x3 GENERAL APPEARANCE: frail appearing NUTRITIONAL APPEARANCE: thin and underweight Resp: COMMON NORMALS: normal respiratory effort, No retractions, No use of accessory muscles and clear to auscultation bilaterally AUSCULTATION: clear to auscultation bilaterally Cardio: COMMON NORMALS: regular rate, regular rhythm, S1 normal heart sound present and S2 normal heart sound present RATE: regular rate RHYTHM: regular rhythm HEART SOUNDS: S1 normal heart sound present and S2 normal heart sound present GI: COMMON NORMALS: Normal to inspection, nondistended, normoactive bowel sounds present, Soft to palpation and non-tender PALPATION: Yes Soft to palpation Extremity: COMMON NORMALS: no pedal edema Neuro: COMMON NORMALS: patient oriented x3 Psych: COMMON NORMALS: mental status grossly normal Data : 01/12/21 03:50 01/12/21 03:50 Micro: Microbiology 01/11/21 12:01 Blood Culture - Preliminary Blood SPECIMEN COLLECTED 01/11/21 12:00 Blood Culture - Preliminary Blood SPECIMEN COLLECTED A&P Assessment and plan (1) 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: Postobstructive uropathy with JAVED Plan: -Friedman cath placed -Currently on IV antibiotics Zosyn -Follow blood cultures, urine cultures -Continue gentle IV hydration -Heparin for DVT prophylaxis -Full code Acute anemia, hemoglobin 6.3, likely secondary to acute renal failure, will receive 1 unit PRBC, however need to evaluate for possible slow GI bleed, iron studies, B12, folate, Hemoccult stool, Protonix Acute renal failure, likely secondary to obstructive uropathy -JENNIFER pending, ESR pending, TSH within normal limits, A1c 5.5, monitor blood pressures -Plan hemodialysis -Nephrology on consult Uremia, alert oriented x3, Metabolic acidosis secondary to uremia Hyperkalemia, resolved Acute cystitis, Zosyn as above NSTEMI -Baseline troponin 57, 6-hour 80.5, down to 32.[address] depressions in anterior leads, no cardiovascular history -Likely secondary to hyperkalemia, uremia, metabolic acidosis -Continue telemetry monitoring -We will order cardiac echocardiogram Normocytic anemia, likely secondary to poor oral intake, acute renal failure Anorexia, protein calorie malnutrition -Likely secondary acute renal failure -High risk of refeeding syndrome -We will order celiac panel -We will consult nutrition Elevated lipase, no complaints of abdominal pain, likely acute on chronic pancreatitis from malnutrition -Renal diet, monitor feedings closely Status: Acute (2) Benign prostatic hyperplasia with urinary retention: Status: Acute (3) Acute retention of urine: Status: Acute (4) Acute cystitis: Status: Acute (5) Acute renal failure: Status: Acute (6) NSTEMI (non-ST elevated myocardial infarction): Status: Acute (7) Chest pain: Status: Acute (8) Acute uremia: Status: Acute Attestations Medical Necessity Statement*: Patient requires hospitalization for obstructive uropathy, acute anemia, acute renal failure, NSTEMI Coding Level of Care Code Acute Manager Home Healthcare for [facility] Diagnoses 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 N13.9 Benign prostatic hyperplasia with urinary retention N40.1; R33.8 Acute retention of urine R33.8 Acute cystitis N30.00 Acute renal failure N17.9 NSTEMI (non-ST elevated myocardial infarction) I21.4 Chest pain R07.9 Acute uremia N19
[2021-01-12 11:16] LABS: Glucose Point of Care 128 mg/dL (70-110)
[2021-01-12 11:44] LABS: HIV 1 & 2 Antigen Non-Reactive (Non-Reactiv)
[2021-01-12 11:45] LABS: HIV 1 & 2 Antibody Non-Reactive (Non-Reactiv)
[2021-01-12 12:46] LABS: Blood Urine 2+ (Negative); Glucose Urine UA Norm (Normal); Ketones Urine 1+ (Negative); Nitrate Urine Negative (Negative); Protein Urine Trace (Negative); Urine Appearance Hazy (CLEAR); Urine Color Colorless (Yellow); pH Urine 5 (5-7)
[2021-01-12 12:47] LABS: Add Urine Microscopic? YES; Bacteria Urine 1+ /hpf; Bilirubin Urine Neg (Negative); Leukocyte Esterase Urine 2+ (Negative); RBC Urine 0-4 /hpf (0-2); Squamous Epithelial Cell Urine 0-4 /hpf (0-5); Urobilinogen Urine Norm (Negative); WBC Urine TOO NUMEROUS TO CNT /hpf (0-5)
--- NOTE | 2021-01-12 13:26 | PC.NURSE ---
1043 Transfusion completed. Tolerated well. Pt still c/o nausea. No other issues noted. Telenephrologist saw pt via IPAD. Will receive short dialysis treatment.
[2021-01-12 15:08] LABS: Basophils % 0.1 %; Hematocrit 21.9 % (42.0-52.0); Lymphocytes # 0.4 10^3/uL (0.8-4.8); Lymphocytes % 4.9 %; Mean Corpuscular HGB Conc 36.5 g/dL (30.0-36.0); Mean Corpuscular Hemoglobin 29.1 pg (28.0-34.0); Mean Corpuscular Volume 79.6 fl (80-94); Mean Platelet Volume 10.3 fL (7.4-10.4); Monocytes # 0.6 10^3/uL (0.2-0.9); Monocytes % 6.3 %; Neutrophils # 7.77 10^3/uL (1.8-7.7); Neutrophils % 87.5 %; Nucleated Red Blood Cells % 0 %; Platelet Count 243 10^3/cmm (130-400); Red Blood Count 2.75 10^6/uL (4.1-5.3); Red Cell Distribution Width 14.6 % (12.1-15.1); White Blood Count 8.9 10^3/uL (4.0-10.0)
--- NOTE | 2021-01-12 15:15 | PC.CHAP ---
Pastoral Care Encounter/Spiritual Assessment Type of Contact [] Declined manager news visit [] Patient/Family/Request visit [] Outpatient visit [] Follow-up visit [] Physician referral [] Code/Alert [] Routine visit [] Staff referral [] Actively dying [] Patient sleeping [] Family support [] [] Out of room [] Palliative care [] [] Receiving care in room [] Pre-surgical visit [] Trauma [] Long length of stay [xx] ICU visit [] Other: Relational/Emotional Strength [] Patient feels connected with others/family/visitors/staff [] Distress [] Loneliness/isolation [] Abandonment Spirituality of Patient [] Person of Emilie [] Attends Cheondoism of their Emilie [] Believes in Prayer [] Reads Bible or Orthodoxy materials [] There are Spiritual issues to be addressed Medical Insurance Claims Processor Interventions [xx] Prayer [] Active listening [] Non-anxious presence [] Spiritual/emotional support [] Crisis/trauma care [] Spiritual counseling [] Bereavement support [] Provided bereavement packet [] Provided Bible/devotional materials [] Provided toy/stuffed animal, coloring book to patient or family member [] Provided Communion [] Anointing/[place] [] Salvation [] Completed spiritual assessment [] Other: Impact on Illness or Injury [] Angry [] Fearful [] Anxious [] Often cries [] Exhaustion [] Unable to work [] Unable to attend buddhism [] Unable to walk/stand [] Unable to read [] Unable to drive [] Unable to eat/drink [] Unable to sleep [] Unable to be with family [] Patient intubated [] Other: Summary Medical Insurance Claims Processor not permitted in room. Medical Insurance Claims Processor prayed outside room. Time spent with patient 2 minutes
[2021-01-12 15:34] LABS: Anion Gap 17.2 (5-19); Calcium 8.3 mg/dL (8.5-10.5); Carbon Dioxide 24 mmol/L (22-29); Chloride 99 mmol/L (98-107); Glomerular Filtration Rate 23.2 mL/min (90-130); Glucose 101 mg/dL (65-115); Osmolality Calculated 292 mOsm/kg (285-295); Potassium 3.2 mmol/L (3.5-5.1); Sodium 137 mmol/L (136-145)
[2021-01-12 15:57] LABS: Blood Urea Nitrogen 35 mg/dL (8-23)
--- NOTE | 2021-01-12 16:10 | USCV_ITS ---
Kashmir West Age: 60 Gender: M : 1960 Exam Date: 01/12/2021 09:31 Ordering Phys: Alejandro Morton MD Technologist: Exam [place] [facility] [place]: NSTEMI BP: 141 / 72 HR: 91 Rhythm: Sinus Technical Quality: Technically difficult study MEASUREMENTS (Male / Female) Normal Values 2D ECHO LV Ejection Fraction MOD 2C 38.8 % LV Ejection Fraction 2C AL 38.3 % LA Width 2.1 cm LA Height 3.7 cm RA Width 3.6 cm RA Height 3.9 cm M-MODE RV Diastolic Diameter MM 2.1 cm DOPPLER AV Peak Velocity 140.0 cm/s LVOT Peak Velocity 102.0 cm/s MV Area PHT 5.0 cm squared Mitral E to A Ratio 0.8 MV E' Velocity 37.5 cm/s Mitral E to MV E' Ratio 4.9 Mitral E to LV E' Lateral Ratio 4.8 Mitral E to LV E' Septal Ratio 4.9 TR Peak Velocity 156.8 cm/s TR Peak Gradient 9.8 mmHg TV Peak E Velocity 83.0 cm/s Right Atrial Pressure 3.0 mmHg Pulmonary Artery Systolic Pressu 12.8 mmHg FINDINGS Left Ventricle Technically limited quality echocardiogram because of poor ultrasonic windows. Grossly LV systolic function is normal. Regional wall motion abnormalities cannot be assessed because of poor quality echocardiogram. Grade 1 diastolic dysfunction is noted. Right Ventricle The right ventricle is normal in size and function. Right Atrium The right atrium is normal in size. Left Atrium The left atrium is normal in size. Mitral Valve Structurally normal mitral valve without significant stenosis or prolapse. There is no mitral regurgitation. Aortic Valve Aortic valve is not well-visualized. No significant aortic stenosis Tricuspid Valve Structurally normal tricuspid valve without significant stenosis or regurgitation. Insufficient TR jet to calculate RVSP Pulmonic Valve Structurally normal pulmonic valve without significant stenosis. There is no pulmonic regurgitation. Pericardium There is a small sized pericardial effusion noted. Aorta Normal ascending aorta dimension. CONCLUSIONS Technically limited quality echocardiogram because of poor ultrasonic windows. Grossly LV systolic function is normal Grade 1 diastolic dysfunction is seen. No significant valvular heart disease is seen. Small pericardial effusion is seen. No comparison studies are available. Shahid Solis MD (Electronically Signed) Final Date: 12 January 2021 21:38 S
--- NOTE | 2021-01-12 16:10 | US_ITS ---
WS: [id number] ULTRASOUND ABDOMEN LIMITED CLINICAL INFORMATION: pancreatitis COMPARISON: None. FINDINGS: Liver Size: Normal. Craniocaudal length: 14.8 cm. Echogenicity: Normal. Surface nodularity: None. Mass (size and location): None. Bile ducts Intrahepatic ducts: Normal. Common bile duct diameter: 0.5 cm. Gallbladder Contracted Gallstones: Present Gallbladder sludge: None. Gallbladder wall thickening: None. Pericholecystic fluid: None. Sonographic Sin sign: Absent. Pancreas Hypoechoic Right kidney: Marked right proximal ureterectasis. No hydronephrosis. Hydronephrosis: None. Size: 10.6 cm x 4.2 cm x 4.0 cm. Abdominal aorta and IVC Visualized portions are normal. Ascites: None. US/US abdomen limited [id number] IMPRESSION: 1. Normal liver. 2. Contracted gallbladder with cholelithiasis. Normal common bile duct. 3. Markedly dilated right proximal ureter. Right renal pelvis is decompressed. No hydronephrosis. 4. Hypoechoic pancreas suspicious for pancreatic edema with pancreatitis. Dominik mmend correlation with pancreatic enzymes.
--- NOTE | 2021-01-12 16:24 | PC.HD ---
Per Dr. Anderson's instrucions, cath not heparinized, just flushed with saline.
--- NOTE | 2021-01-12 16:59 | PC.NUTR ---
Malnutrition consult per MD: Recommend to encourage slow progression of po intake of meals/fluids, advancing diet as appropriate. Will provide Ensure Clear 1x/day; when diet advanced, recommend Nepro TID. Monitor labs (especially electrolytes) closely in case of any signs of refeeding syndrome, since exact intake in the past 30 days is unclear but low (pt reports drinking milk and coca-cola daily at home, but no meals). Question pt's understanding of nutritional topics. See full RD assessment for more details.
[2021-01-12] MEDS: vancomycin 1,000 MG in sodium chloride 0.9% 250 ML 250 MG IV (17:44)
[2021-01-12 18:04] LABS: Glucose Point of Care 103 mg/dL (70-110)
--- NOTE | 2021-01-12 18:20 | PC.NURSE ---
Shift Note Frequent safety and comfort rounds continue. Orders and/or nursing care completed as indicated. Patient monitored for response to intervention and treatment(s). Education provided includes treatment plan, dialysis and medications. Pt verbalizes understanding but requires reminders. VSS. Makes needs known. Remains nauseous at times, refuses meals. Will continue to monitor.
[2021-01-12] MEDS: pantoprazole 40 mg SDV IVP (18:23)
[2021-01-12 19:53] LABS: Glucose Point of Care 102 mg/dL (70-110)
[2021-01-12 23:07] LABS: Anion Gap 16.2 (5-19); Blood Urea Nitrogen 47 mg/dL (8-23); Calcium 7.9 mg/dL (8.5-10.5); Carbon Dioxide 23 mmol/L (22-29); Chloride 104 mmol/L (98-107); Glomerular Filtration Rate 13.7 mL/min (90-130); Glucose 115 mg/dL (65-115); Osmolality Calculated 303 mOsm/kg (285-295); Potassium 3.2 mmol/L (3.5-5.1); Sodium 140 mmol/L (136-145)
[2021-01-13] VITALS (55 sets, daily range): BP systolic 101–169; BP diastolic 66–90; PULSE 71–105; RESP 9–27; TEMP 36.6–37.6; O2SAT 95–100
--- NOTE | 2021-01-13 01:54 | PC.NURSE ---
Shift Note Frequent safety and comfort rounds continue. Orders and/or nursing care completed as indicated. Patient monitored for response to intervention and treatment(s). Education provided includes medications with side effects, S/S to report, fall safety, position changes to prevent skin breakdown. Patient and spouse verbalized understanding. Patient with c/o nausea and vomited small amounts of green bile intermittently, prn zofran given once at beginning of shift when was on cell phone and encouraged him to accept it to help with N/V but later in shift patient refused prn zofran with concerns of possible side effects. Repeated education on medications with side effects but patient refused prn zofran for his nausea and vomiting. Aspiration precautions taken. Patient has extremely poor PO intake with only a few sips of water. Friedman patent and draining. Patient started to have increasing MF PVC's, Dr. Dickey notified, labs ordered, no significant changes in electrolytes noted. Patient remained alert and oriented, following commands. Will continue to monitor.
[2021-01-13] MEDS: piperacillin-tazobactam 3.375 GM in sodium chloride 0.9% (plus) 50 ML IV ×2 (04:13→16:27)
[2021-01-13] MEDS: heparin 5,000 unit/mL INJ 1 mL 5000 UNIT SUBCUT ×2 (04:13→16:27)
[2021-01-13 05:26] LABS: Basophils % 0.1 %; Eosinophils % 0.1 %; Hematocrit 22.8 % (42.0-52.0); Hemoglobin 7.8 g/dL (11.7-16.6); Lymphocytes # 0.6 10^3/uL (0.8-4.8); Lymphocytes % 7.4 %; Mean Corpuscular HGB Conc 34.2 g/dL (30.0-36.0); Mean Corpuscular Volume 84.8 fl (80-94); Mean Platelet Volume 10.5 fL (7.4-10.4); Monocytes # 0.9 10^3/uL (0.2-0.9); Monocytes % 10.4 %; Neutrophils # 6.57 10^3/uL (1.8-7.7); Neutrophils % 80.7 %; Nucleated Red Blood Cells % 0 %; Platelet Count 210 10^3/cmm (130-400); Red Blood Count 2.69 10^6/uL (4.1-5.3); White Blood Count 8.2 10^3/uL (4.0-10.0)
[2021-01-13] MEDS: pantoprazole 40 mg SDV IVP ×2 (05:36→18:29)
[2021-01-13 05:40] LABS: INR 1.13 (0.8-1.2)
[2021-01-13 05:49] LABS: Lactate (Lactic Acid level) 0.6 mmol/L (0.5-2.2)
[2021-01-13 06:01] LABS: NT Pro B Type Natriuretic Pept 4178 pg/mL (0-125); Procalcitonin 1.46 ng/mL (0-0.5)
[2021-01-13 06:04] LABS: Alanine Aminotransferase 6 U/L (0-41); Albumin Level 2.7 g/dL (3.5-5.2); Alkaline Phosphatase 78 IU/L (40-130); Anion Gap 16.1 (5-19); Aspartate Amino Transferase 14 U/L (0-40); Blood Urea Nitrogen 47 mg/dL (8-23); C Reactive Protein 36.6 mg/L (0.0-4.9); Calcium 7.9 mg/dL (8.5-10.5); Carbon Dioxide 24 mmol/L (22-29); Chloride 103 mmol/L (98-107); Globulin 3.9 g/dL (1.3-4.6); Glomerular Filtration Rate 12.7 mL/min (90-130); Glucose 115 mg/dL (65-115); Magnesium 1.9 mg/dL (1.7-2.3); NT Pro B Type Natriuretic Pept 3953 pg/mL (0-125); Osmolality Calculated 303 mOsm/kg (285-295); Phosphorus 4.4 mg/dL (2.5-4.5); Potassium 3.1 mmol/L (3.5-5.1); Sodium 140 mmol/L (136-145); Total Bilirubin 0.5 mg/dL (0.15-1.2); Total Protein 6.6 g/dL (6.6-8.7)
[2021-01-13 06:12] LABS: Creatine Phosphokinase 53 U/L (39-308)
[2021-01-13 07:39] LABS: Glucose Point of Care 122 mg/dL (70-110)
[2021-01-13] MEDS: calcitriol 0.25 mcg Capsule PO (08:35)
[2021-01-13] MEDS: ondansetron 2 mg/ML SDV 2 mL 4 MG IVP (08:46)
[2021-01-13] MEDS: dextrose 5%-sod chloride 0.9% 1,000 ML 75 ML IV ×2 (09:25→23:28)
--- NOTE | 2021-01-13 09:45 | CTR_ITS ---
PROCEDURE INFORMATION: Exam: CT Chest Without Contrast; Diagnostic Exam date and time: 01/13/2021 9:45 AM Age: 60 years old Clinical indication: Nausea; Other: Anorexia; Additional info: Anorexia, weigh loss, nausea TECHNIQUE: Imaging protocol: Diagnostic computed tomography of the chest without contrast. Total images: 505 Radiation optimization: All CT scans at this facility use at least one of these dose optimization techniques: automated exposure control; mA and/or kV adjustment per patient size (includes targeted exams where dose is matched to clinical indication); or iterative reconstruction. COMPARISON: CR XR chest 1V portable [id number] 01/11/2021 11:14 AM RADIATION DOSE METRICS: Total DLP (mGy-cm): 1103.17 FINDINGS: Tubes, catheters and devices: Right-sided hemodialysis catheter in satisfactory location. Lungs: Mild interstitial and ground-glass opacity seen posteriorly within the right upper lobe may represent mild pneumonia possible aspiration or small airway disease. Pleural spaces: Unremarkable. No pneumothorax. No pleural effusion. Heart: Unremarkable. No cardiomegaly. No pericardial effusion. Aorta: Mild atherosclerotic disease is evident. Lymph nodes: Unremarkable. No enlarged lymph nodes. Gallbladder and bile ducts: Cholelithiasis is present without cholecystitis. No gallbladder wall thickening or pericholecystic fluid collection. Bones/joints: Unremarkable. No acute fracture. Soft tissues: Unremarkable. IMPRESSION: 1. Cholelithiasis is present without cholecystitis. No gallbladder wall thickening or pericholecystic fluid collection. 2. Mild interstitial and ground-glass opacity seen posteriorly within the right upper lobe may represent mild pneumonia possible aspiration or small airway disease. PROCEDURE INFORMATION: Exam: CT Abdomen And Pelvis Without Contrast Exam date and time: 01/13/2021 9:45 AM Age: 60 years old Clinical indication: Nausea; Other: Anorexia; Additional info: Anorexia, weigh loss, nausea TECHNIQUE: Imaging protocol: Computed tomography of the abdomen and pelvis without contrast. Radiation optimization: All CT scans at this facility use at least one of these dose optimization techniques: automated exposure control; mA and/or kV adjustment per patient size (includes targeted exams where dose is matched to clinical indication); or iterative reconstruction. COMPARISON: CR XR chest 1V portable [id number] 01/11/2021 11:14 AM RADIATION DOSE METRICS: Total DLP (mGy-cm): 1103.17 FINDINGS: Liver: Normal. No mass. Gallbladder and bile ducts: Cholelithiasis is present without cholecystitis. No gallbladder wall thickening or pericholecystic fluid collection. Pancreas: Normal. No ductal dilation. Spleen: Normal. No splenomegaly. Adrenal glands: Normal. No mass. Kidneys and ureters: Incidental fullness of bilateral extrarenal pelvis. Nonspecific perinephric stranding. Stomach and bowel: Unremarkable. No obstruction. No mucosal thickening. Appendix: No evidence of appendicitis. Intraperitoneal space: Unremarkable. No free air. No significant fluid collection. Vasculature: Mild atherosclerotic disease is evident. Incidental phleboliths noted. Lymph nodes: Unremarkable. No enlarged lymph nodes. Urinary bladder: A Friedman catheter decompresses urinary bladder. Reproductive: Prostatomegaly noted. Bones/joints: Unremarkable. No acute fracture. Soft tissues: Unremarkable. CT/CT chest abd pel wo con IMPRESSION: 1. Cholelithiasis is present without cholecystitis. No gallbladder wall thickening or pericholecystic fluid collection. 2. No acute pathology detected Radiation Dose CTDIVOL = (mGy): DLP = 1103.17~1103.17 (mGy-cm)
--- NOTE | 2021-01-13 10:13 | P.PN_ITS ---
Subjective Subjective: Interval history: minimum oral intake, + nausea. no BM since admission no appetite Medications: Reviewed: Yes Vitals/I&O/Wt Last Vital Signs Temp 98.9 F 01/13/21 08:00 Pulse 101 H 01/13/21 08:45 Resp 14 01/13/21 08:45 BP 148/90 01/13/21 08:45 Pulse Ox 98 01/13/21 08:45 01/12/21 01/13/21 01/13/21 22:59 06:59 14:59 Intake Total 1403.75 / 3434.715 0306 / 2974.000 50 / 50 Output Total 1775 / 1775 1125 / 2900 Balance -371.25 / 199.000 -125 / 74.000 50 / 50 Weight last 48 hrs Weight 51.982 kg Weight 53.6 kg Weight 57.2 kg Weight 57.266 kg Weight 58.967 kg Physical Exam Const: COMMON NORMALS: no acute distress NUTRITIONAL APPEARANCE: cachectic Extremity: GENERAL: No edema Data : 01/13/21 05:00 01/13/21 05:00 Other Labs: albumin 2.7, poornima Ca 8.9, phos 4.4, Mg 1.9 Micro: Microbiology 01/12/21 11:30 Urine Culture - Preliminary Urine Catheterized 01/11/21 12:01 Blood Culture - Preliminary Blood Gram positive cocci 01/11/21 12:00 Blood Culture - Preliminary Blood NEGATIVE TO DATE urine culture GNR A&P Additional A&P Information 1. Obstructive uropathy, GNR UTI, urine output 2100/24h. Elevated PSA, possible prostate cancer 2. Metabolic acidosis due to uremia, resolved 3. Hypokalemia, will replace K IV due to GI symptoms 4. Anemia. Iron replete. Received 1u pRBC yesterday, and epogen at HD 5. Secondary hyperparathyroidism: calcitriol started 6. Malnutrition Recommend: will hold HD over weekend and re-evaluate daily. Attestations Medical Necessity Statement*: see above Time Spent in Patient Care: 16 - 35 minutes Coding Level of Care Code Acute Environmental Epidemiologist for Ashley Cruz
[2021-01-13] MEDS: potassium chloride premix 100 ML 25 MEQ IV (10:53)
[2021-01-13 11:30] LABS: Glucose Point of Care 156 mg/dL (70-110)
--- NOTE | 2021-01-13 14:02 | P.PN_ITS ---
Subjective Subjective: Interval history: Overnight patient had episodes of nausea, vomiting, at times refused to use nausea medication, more agreeable to use it this morning, this morning he reports a decreased appetite, no chest pain, no palpitations, shortness of breath, not requiring any oxygen Vitals/I&O/Wt Last Vital Signs Temp 98.6 F 01/13/21 12:00 Pulse 79 01/13/21 12:00 Resp 14 01/13/21 12:00 BP 131/72 01/13/21 12:00 Pulse Ox 99 01/13/21 12:00 01/12/21 01/13/21 01/13/21 22:59 06:59 14:59 Intake Total 1403.75 / 2131.314 6893 / 2974.000 50 / 50 Output Total 1775 / 1775 1125 / 2900 Balance -371.25 / 199.000 -125 / 74.000 50 / 50 Weight last 48 hrs Weight 51.982 kg Weight 53.6 kg Weight 57.2 kg Weight 57.266 kg Physical Exam Const: COMMON NORMALS: no acute distress and patient oriented x3 GENERAL APPEARANCE: frail appearing NUTRITIONAL APPEARANCE: thin and underweight ORIENTATION/CONSCIOUSNESS: Yes awake, Yes oriented to person, Yes oriented to place and Yes oriented to time Resp: COMMON NORMALS: normal respiratory effort, No retractions, No use of accessory muscles and clear to auscultation bilaterally AUSCULTATION: clear to auscultation bilaterally Cardio: COMMON NORMALS: regular rate, regular rhythm, S1 normal heart sound present, S2 normal heart sound present, No gallops present (Cardio), No clicks present (Cardio) and No murmurs present (Cardio) RATE: regular rate RHYTHM: regular rhythm HEART SOUNDS: S1 normal heart sound present and S2 n ormal heart sound present GI: COMMON NORMALS: Normal to inspection, nondistended, normoactive bowel sounds present, Soft to palpation, non-tender and No hepatosplenomegaly present PALPATION: Yes Soft to palpation and Yes No hepatosplenomegaly present Neuro: COMMON NORMALS: patient oriented x3 SENSORIUM/ORIENTATION: Yes oriented to person, Yes oriented to place and Yes oriented to time Data : 01/13/21 05:00 01/13/21 05:00 Micro: Microbiology 01/11/21 12:01 Blood Culture - Preliminary Blood Coagulase negativ staphylococc 01/12/21 11:30 Urine Culture - Preliminary Urine Catheterized 01/11/21 12:00 Blood Culture - Preliminary Blood NEGATIVE TO DATE A&P Assessment and plan (1) 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: Postobstructive uropathy with JAVED Plan: -Friedman cath placed -Currently on IV antibiotics Zosyn -Follow blood cultures, urine cultures -IV hydration on hold, -Heparin for DVT prophylaxis -Full code -Move out of ICU Acute anemia, hemoglobin 7.8, likely secondary to acute renal failure, status post 1 unit PRBC, however need to evaluate for possible slow GI bleed, Hemoccult stool, Protonix Acute renal failure, likely secondary to obstructive uropathy -JENNIFER pending, ESR pending, TSH within normal limits, A1c 5.5, monitor blood p ressures -Plan intermittent hemodialysis -Nephrology on consult -Consult case management for outpatient hemodialysis Uremia, alert oriented x3, Metabolic acidosis secondary to uremia, resolved Hyperkalemia, resolved Acute cystitis, Zosyn as above NSTEMI -Baseline troponin 57, 6-hour 80.5, down to 32.[address] depressions in anterior leads, no cardiovascular history -Likely secondary to hyperkalemia, uremia, metabolic acidosis -Continue telemetry monitoring -Echocardiogram, normal EF, no significant wall motion abnormalities Normocytic anemia, likely secondary to poor oral intake, acute renal failure Anorexia, protein calorie malnutrition -Likely secondary acute renal failure -High risk of refeeding syndrome, treat hypokalemia hypophosphatemia -Slowly advance diet, keep calorie intake between 14 kcals to 1600 kcals, Ensure drinks -Given continued nausea vomiting, order CT scan of the abdomen pelvis to rule out obstruction -We will order celiac panel -We will consult nutrition Elevated lipase, no complaints of abdominal pain, likely acute on chronic pancreatitis from malnutrition -Renal diet, monitor feedings closely Paroxysmal atrial fibrillation, currently normal sinus rhythm Status: Acute (2) Benign prostatic hyperplasia with urinary retention: Status: Acute (3) Acute retention of urine: Status: Acute (4) Acute cystitis: Status: Acute (5) Acute renal failure: Status: Acute (6) NSTEMI (non-ST elevated myocardial infarction): Status: Acute (7) Chest pain: Status: Acute (8) Acute uremia: Status: Acute Attestations Medical Necessity Statement*: Patient requires hospitalization for postobstructive uropathy, JAVED, uremia, NSTEMI, anorexia Coding Level of Care Code Acute Blankbook Forwarder for [facility] Fwd Diagnoses 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 N13.9 Benign prostatic hyperplasia with urinary retention N40.1; R33.8 Acute retention of urine R33.8 Acute cystitis N30.00 Acute renal failure N17.9 NSTEMI (non-ST elevated myocardial infarction) I21.4 Chest pain R07.9 Acute uremia N19
--- NOTE | 2021-01-13 15:22 | PC.NURSE ---
0700 Report received, assessment completed. Pt c/o some n/v this AM. AAOx4. Makes all needs known. VSS. Friedman draining freely to BSD. Repositioned per staff. [address] Tolerated well. Sheets changed. VSS. No other issues noted at this time. Potassium being repleted per ancillary services manager orders.
--- NOTE | 2021-01-13 16:59 | PC.NURSE ---
4446 Pt transferred to room 255 bed 1. Report given to Breanne COURTNEY. Pt tolerated well.
[2021-01-13 17:11] LABS: Glucose Point of Care 117 mg/dL (70-110)
[2021-01-13 20:46] LABS: Glucose Point of Care 117 mg/dL (70-110)
[2021-01-14 03:56] VITALS: BP 158/84; PULSE 86; RESP 18; TEMP 37.4; O2SAT 98
[2021-01-14] MEDS: heparin 5,000 unit/mL INJ 1 mL 5000 UNIT SUBCUT ×2 (04:05→17:18)
[2021-01-14] MEDS: piperacillin-tazobactam 3.375 GM in sodium chloride 0.9% (plus) 50 ML IV (04:10)
[2021-01-14 05:05] LABS: Basophils % 0.3 %; Eosinophils % 0.4 %; Hematocrit 24.5 % (42.0-52.0); Hemoglobin 7.9 g/dL (11.7-16.6); Lymphocytes # 0.7 10^3/uL (0.8-4.8); Mean Corpuscular HGB Conc 32.2 g/dL (30.0-36.0); Mean Corpuscular Hemoglobin 28.5 pg (28.0-34.0); Mean Corpuscular Volume 88.4 fl (80-94); Mean Platelet Volume 10.5 fL (7.4-10.4); Monocytes # 0.9 10^3/uL (0.2-0.9); Monocytes % 11.1 %; Neutrophils # 6.07 10^3/uL (1.8-7.7); Nucleated Red Blood Cells % 0 %; Platelet Count 222 10^3/cmm (130-400); Red Blood Count 2.77 10^6/uL (4.1-5.3); Red Cell Distribution Width 16.5 % (12.1-15.1); White Blood Count 7.9 10^3/uL (4.0-10.0)
[2021-01-14 05:15] LABS: INR 1.05 (0.8-1.2)
[2021-01-14] MEDS: pantoprazole 40 mg SDV IVP ×2 (05:18→17:18)
[2021-01-14 05:21] LABS: Lactate (Lactic Acid level) 0.6 mmol/L (0.5-2.2)
[2021-01-14 05:41] LABS: NT Pro B Type Natriuretic Pept 7580 pg/mL (0-125); Procalcitonin 0.93 ng/mL (0-0.5)
[2021-01-14 05:44] LABS: Alanine Aminotransferase < 5 U/L (0-41); Albumin Level 2.7 g/dL (3.5-5.2); Alkaline Phosphatase 76 IU/L (40-130); Anion Gap 14.5 (5-19); Aspartate Amino Transferase 15 U/L (0-40); Blood Urea Nitrogen 43 mg/dL (8-23); C Reactive Protein 53.3 mg/L (0.0-4.9); Calcium 8.1 mg/dL (8.5-10.5); Carbon Dioxide 23 mmol/L (22-29); Chloride 109 mmol/L (98-107); Globulin 3.8 g/dL (1.3-4.6); Glomerular Filtration Rate 9.8 mL/min (90-130); Glucose 122 mg/dL (65-115); Magnesium 1.7 mg/dL (1.7-2.3); NT Pro B Type Natriuretic Pept 7739 pg/mL (0-125); Osmolality Calculated 308 mOsm/kg (285-295); Phosphorus 4.3 mg/dL (2.5-4.5); Potassium 3.5 mmol/L (3.5-5.1); Sodium 143 mmol/L (136-145); Total Bilirubin 0.4 mg/dL (0.15-1.2); Total Protein 6.5 g/dL (6.6-8.7)
[2021-01-14 05:52] LABS: Creatine Phosphokinase 25 U/L (39-308)
[2021-01-14 06:33] LABS: Glucose Point of Care 128 mg/dL (70-110)
[2021-01-14 07:26] VITALS: BP 144/83; PULSE 77; RESP 18; TEMP 37; O2SAT 98
[2021-01-14] MEDS: multivitamin therapeutic Tablet 1 TAB PO (08:04)
[2021-01-14] MEDS: calcitriol 0.25 mcg Capsule PO (08:04)
[2021-01-14 11:31] VITALS: BP 153/77; PULSE 72; RESP 16; TEMP 37.3; O2SAT 99
--- NOTE | 2021-01-14 12:05 | P.PN_ITS ---
Subjective Subjective: Interval history: Patient was seen this morning, he is complaining of his diet, he would like to try something more substantial, he wants to try some fresh fruit, he is also complaining of diarrhea, he continues to have diarrhea overnight, no abdominal pain, no fevers, chills, no nausea, no vomiting Vitals/I&O/Wt Last Vital Signs Temp 99.1 F 01/14/21 11:31 Pulse 72 01/14/21 11:31 Resp 16 01/14/21 11:31 BP 153/77 01/14/21 11:31 Pulse Ox 99 01/14/21 11:31 01/13/21 01/14/21 01/14/21 22:59 06:59 14:59 Intake Total 1570 / 1720 240 / 1960 550 / 550 Output Total 1190 / 1190 795 / 1985 Balance 380 / 530 -555 / -25 550 / 550 Weight last 48 hrs Weight 51.982 kg Weight 53.6 kg Physical Exam Const: COMMON NORMALS: no acute distress and patient oriented x3 GENERAL APPEARANCE: frail appearing NUTRITIONAL APPEARANCE: thin and underweight Chest: OTHER: Right dialysis catheter in place Resp: COMMON NORMALS: normal respiratory effort, No retractions, No use of accessory muscles and clear to auscultation bilaterally AUSCULTATION: clear to auscultation bilaterally Cardio: COMMON NORMALS: regular rate, regular rhythm, S1 normal heart sound present and S2 normal heart sound present RATE: regular rate RHYTHM: regular rhythm HEART SOUNDS: S1 normal heart sound present and S2 normal heart sound present GI: COMMON NORMALS: Normal to inspection, nondistended, normoactive bowel sounds present, Soft to palpation and non-tender PALPATION: Yes Soft to palpation Extremity: COMMON NORMALS: no pedal edema Neuro: COMMON NORMALS: patient oriented x3 Psych: COMMON NORMALS: mental status grossly normal Urinary Catheter Management^: Friedman: Cath Placed During This Visit: no Reason for Continuing Indwelling Catheter: Acute Urinary Retention or Obstruction Data : 01/14/21 04:37 01/14/21 04:37 Micro: Microbiology 01/13/21 16:35 MRSA Culture - Final Nose 01/12/21 11:30 Urine Culture - Final Urine Catheterized 01/13/21 15:38 Blood Culture - Preliminary Blood SPECIMEN COLLECTED 01/13/21 15:43 Blood Culture - Preliminary Blood SPECIMEN COLLECTED 01/11/21 12:01 Blood Culture - Preliminary Blood Coagulase negativ staphylococc A&P Assessment and plan (1) 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: Postobstructive uropathy with JAVED Plan: -Friedman cath placed -Urine culture showing Enterobacter cloacae resistant to Zosyn, switch to Cipro, renally dosed -Follow blood cultures -Stop IV hydration -Heparin for DVT prophylaxis -Full code -Currently on general medical floors -Advance diet to GI soft diet Acute anemia, hemoglobin 7.9, likely secondary to acute renal failure, status post 1 unit PRBC, however need to evaluate for possible slow GI bleed, Hemoccult stool, Protonix Acute renal failure, likely secondary to obstructive uropathy -JENNIFER pending, ESR pending, TSH within normal limits, A1c 5.5, monitor blood pressures -Plan intermittent hemodialysis -Nephrology on consult -Consult case management for outpatient hemodialysis Uremia, alert oriented x3, Metabolic acidosis secondary to uremia, resolved Hyperkalemia, resolved Acute cystitis, with evidence of Enterobacter cloacae penicillin-resistant, on Cipro NSTEMI -Baseline troponin 57, 6-hour 80.5, down to 32.[address] depressions in anterior leads, no cardiovascular history -Likely secondary to hyperkalemia, uremia, metabolic acidosis -Continue telemetry monitoring -Echocardiogram, normal EF, no significant wall motion abnormalities Normocytic anemia, likely secondary to poor oral intake, acute renal failure Anorexia, protein calorie malnutrition -Likely secondary acute renal failure -High risk of refeeding syndrome, treat hypokalemia hypophosphatemia -Slowly advance diet, keep calorie intake between 14 kcals to 1600 kcals, Ensure drinks -Given continued nausea vomitin -We will order celiac panel -We will consult nutrition Elevated lipase, no complaints of abdominal pain, likely acute on chronic pancreatitis from malnutrition -Renal diet, monitor feedings closely Paroxysmal atrial fibrillation, currently normal sinus rhythm Gram-positive blood cultures, coagulase-negative staph, likely contamination, continue vancomycin, if second blood culture is negative will discontinue Complaints of diarrhea, C. difficile Status: Acute (2) Benign prostatic hyperplasia with urinary retention: Status: Acute (3) Acute retention of urine: Status: Acute (4) Acute cystitis: Status: Acute (5) Acute renal failure: Status: Acute (6) NSTEMI (non-ST elevated myocardial infarction): Status: Acute (7) Chest pain: Status: Acute (8) Acute uremia: Status: Acute Attestations Medical Necessity Statement*: Patient requires hospitalization due to postobstructive JAVED, UTI, uremia, requiring dialysis Coding Level of Care Code Acute Director Of Restaurant Operations for g Fwd Diagnoses 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 N13.9 Benign prostatic hyperplasia with urinary retention N40.1; R33.8 Acute retention of urine R33.8 Acute cystitis N30.00 Acute renal failure N17.9 NSTEMI (non-ST elevated myocardial infarction) I21.4 Chest pain R07.9 Acute uremia N19
[2021-01-14 12:19] LABS: Glucose Point of Care 126 mg/dL (70-110)
--- NOTE | 2021-01-14 12:23 | P.PN_ITS ---
Subjective Subjective: Interval history: Mr. West feels well today with no specific complaints. He does like to chat about the food that he is eating, he seems satisfied with the peaches. Speci fically he denies any uremic symptoms, denies any extremity edema, shortness of breath or other hypervolemic symptoms. Friedman catheter is in and it is comfortable. Vitals/I&O/Wt Last Vital Signs Temp 99.1 F 01/14/21 11:31 Pulse 72 01/14/21 11:31 Resp 16 01/14/21 11:31 BP 153/77 01/14/21 11:31 Pulse Ox 99 01/14/21 11:31 01/13/21 01/14/21 01/14/21 22:59 06:59 14:59 Intake Total 1570 / 1720 240 / 1960 550 / 550 Output Total 1190 / 1190 795 / 1985 Balance 380 / 530 -555 / -25 550 / 550 Weight last 48 hrs Weight 51.982 kg Weight 53.6 kg Physical Exam Narrative: EXAM NARRATIVE: Constitutional: Awake, comfortable HEENT: Wet mucosa, no jvp, non icteric Lungs: Bilaterally clear without discernible wheeze, rales in all lung zones CVS: S1 S2, no murmurs Abdo: Soft, BS ok Ext 4: Minimal edema, peripheral perfusion with no cyanosis Neurological: Grossly non-focal Urinary Catheter Management^: Friedman: Cath Placed During This Visit: no Reason for Continuing Indwelling Catheter: Acute Urinary Retention or Obstruction Data : 01/14/21 04:37 01/14/21 04:37 Micro: Microbiology 01/13/21 16:35 MRSA Culture - Final Nose 01/12/21 11:30 Urine Culture - Final Urine Catheterized 01/13/21 15:38 Blood Culture - Preliminary Blood SPECIMEN COLLECTED 01/13/21 15:43 Blood Culture - Preliminary Blood SPECIMEN COLLECTED 01/11/21 12:01 Blood Culture - Preliminary Blood Coagulase negativ staphylococc A&P Additional A&P Information 1. Renal failure It is likely he has ESRD at this time secondary to obstructive uropathy. Friedman to stay in, mgmt per Urology We will plan for dialysis tomorrow, 3K, ultrafiltration of 1 L. Case management to organize outpatient hemodialysis and local clinic. Dose medication for GFR less than 15 2. Anemia Iron levels robust, will give EPO x1 today. Management per hospital team. 3. Hemodynamics Blood pressure is robust at this time. No changes to antihypertensive medication. 4. Secondary hyperparathyroidism, currently on Rocaltrol. 5. ID Coag negative staph in the blood, currently being dosed with vancomycin, manag ement per Dr. Morton. Valentin Sorto MD Nephrology [phone] Patient seen and examined via telemedicine, with the assistance of the bedside RN > 25 min spent in evaluation and mgmt of patient Attestations Medical Necessity Statement*: Renal Failure mgmt Coding Level of Care Code Acute Coke Oven Patcher for Aarong Nancy
--- NOTE | 2021-01-14 12:24 | PC.OT ---
OT evaluation held, low hgb.
[2021-01-14] MEDS: ciprofloxacin 500 mg Tablet PO (13:11)
--- NOTE | 2021-01-14 14:31 | PC.CHAP ---
Pastoral Care Encounter/Spiritual Assessment Type of Contact [] Declined appointment clerk visit [] Patient/Family/Request visit [] Outpatient visit [XX] Follow-up visit [] Physician referral [] Code/Alert [XX] Routine visit [] Staff referral [] Actively dying [] Patient sleeping [] Family support [] [] Out of room [] Palliative care [] [] Receiving care in room [] Pre-surgical visit [] Trauma [] Long length of stay [] ICU visit [] Other: Relational/Emotional Strength [] Patient feels connected with others/family/visitors/staff [XX] Distress [] Loneliness/isolation [] Abandonment Spirituality of Patient [XX] Person of Emilie [] Attends Mandaeism of their Emilie [] Believes in Prayer [XX] Reads Bible or Congregation materials [] There are Spiritual issues to be addressed Trolley Wire Installer Interventions [] Prayer [XX] Active listening [XX] Non-anxious presence [] Spiritual/emotional support [] Crisis/trauma care [] Spiritual counseling [] Bereavement support [] Provided bereavement packet [] Provided Bible/devotional materials [] Provided toy/stuffed animal, coloring book to patient or family member [] Provided Communion [] Anointing/[place] [] Salvation [XX] Completed spiritual assessment [] Other: Impact on Illness or Injury [] Angry [] Fearful [] Anxious [] Often cries [] Exhaustion [] Unable to work [] Unable to attend yazidi [] Unable to walk/stand [] Unable to read [] Unable to drive [] Unable to eat/drink [] Unable to sleep [] Unable to be with family [] Patient intubated [] Other: Summary: Meandering conversation with pt not interested in reading materials or prayer. Pt concerned about his health and frustrated at some aspects of his care. Time spent with patient: 20 mins
[2021-01-14 15:39] VITALS: BP 131/81; PULSE 81; RESP 16; TEMP 37; O2SAT 98
--- NOTE | 2021-01-14 16:55 | PC.PT ---
PT evaluation on hold due to having diarrhea, will reattempt tomorrow
[2021-01-14 17:24] LABS: Glucose Point of Care 88 mg/dL (70-110)
[2021-01-14 19:16] VITALS: BP 155/81; PULSE 76; RESP 17; TEMP 37.1; O2SAT 99
[2021-01-14 20:57] LABS: Glucose Point of Care 117 mg/dL (70-110)
[2021-01-14 22:00] VITALS: PULSE 68
[2021-01-15] VITALS: BP 148/78; PULSE 82; RESP 16; TEMP 37; O2SAT 98
[2021-01-15 04:00] VITALS: BP 140/71; PULSE 80; RESP 16; TEMP 36.9; O2SAT 97
[2021-01-15] MEDS: heparin 5,000 unit/mL INJ 1 mL 5000 UNIT SUBCUT (04:01)
[2021-01-15 05:52] LABS: Basophils % 0.3 %; Eosinophils # 0.1 10^3/uL (0.0-0.8); Hemoglobin 7.7 g/dL (11.7-16.6); Lymphocytes # 0.9 10^3/uL (0.8-4.8); Lymphocytes % 9.1 %; Mean Corpuscular HGB Conc 30.8 g/dL (30.0-36.0); Mean Corpuscular Hemoglobin 28.3 pg (28.0-34.0); Mean Corpuscular Volume 91.9 fl (80-94); Mean Platelet Volume 11.3 fL (7.4-10.4); Monocytes # 1.1 10^3/uL (0.2-0.9); Monocytes % 11.5 %; Neutrophils # 7.15 10^3/uL (1.8-7.7); Neutrophils % 76.9 %; Nucleated Red Blood Cells % 0 %; Platelet Count 207 10^3/cmm (130-400); Red Blood Count 2.72 10^6/uL (4.1-5.3); Red Cell Distribution Width 16.9 % (12.1-15.1); White Blood Count 9.3 10^3/uL (4.0-10.0)
[2021-01-15 06:25] LABS: Alanine Aminotransferase 9 U/L (0-41); Albumin Level 2.6 g/dL (3.5-5.2); Alkaline Phosphatase 73 IU/L (40-130); Anion Gap 15.7 (5-19); Aspartate Amino Transferase 21 U/L (0-40); Blood Urea Nitrogen 51 mg/dL (8-23); Calcium 8.3 mg/dL (8.5-10.5); Carbon Dioxide 21 mmol/L (22-29); Chloride 109 mmol/L (98-107); Globulin 3.8 g/dL (1.3-4.6); Glomerular Filtration Rate 8.5 mL/min (90-130); Glucose 99 mg/dL (65-115); Osmolality Calculated 308 mOsm/kg (285-295); Potassium 3.7 mmol/L (3.5-5.1); Sodium 142 mmol/L (136-145); Total Bilirubin 0.3 mg/dL (0.15-1.2); Total Protein 6.4 g/dL (6.6-8.7)
[2021-01-15 06:47] LABS: Glucose Point of Care 100 mg/dL (70-110)
[2021-01-15 06:50] LABS: Vancomycin Random < 4.0 ug/mL (20.0-40.0)
[2021-01-15 07:11] VITALS: BP 130/83; PULSE 64; RESP 16; TEMP 37.2
[2021-01-15] MEDS: multivitamin therapeutic Tablet 1 TAB PO (11:01)
[2021-01-15] MEDS: calcitriol 0.25 mcg Capsule PO (11:01)
[2021-01-15] MEDS: ciprofloxacin 500 mg Tablet PO (11:02)
[2021-01-15 11:06] LABS: Erythrocyte Sedimentation Rate 38 mm/hr (0-10)
--- NOTE | 2021-01-15 11:41 | PM.DCS ---
Discharge Providers Date of Admission: 01/11/21 16:47 Date of Discharge: January 15, 2021 Attending Provider at Admission: Alejandro Morton MD Attending Provider at Discharge: Rodolfo Padilla MD Diagnoses at Discharge Discharge Diagnosis (1) 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: Status: Acute (2) Benign prostatic hyperplasia with urinary retention: Status: Acute (3) Acute retention of urine: Status: Acute (4) Acute cystitis: Status: Acute (5) Acute renal failure: Status: Acute (6) NSTEMI (non-ST elevated myocardial infarction): Status: Acute (7) Chest pain: Status: Acute (8) Acute uremia: Status: Acute Reason for Visit Reason for Visit: AMS Hospital Course Hospital Course 60 year old male with a past medical history of acute urinary retention secondary to BPH who self caths, protein calorie malnutrition, sarcopenia, normocytic anemia, pancreatitis, with recent history of postobstructive uropathy with JAVED, 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 Further work-up during the hospital stay revealed, end-stage renal disease secondary to postobstructive uropathy, he ended up being on dialysis for renal failure. PermCath was placed patient was started on dialysis, he tolerated dialysis well, plan is to continue him on outpatient dialysis Friday.He will continue to follow-up with Dr. Turner the brusher operator as an outpatient. He was also managed for acute cystitis urine culture grew Enterobacter cloacae, he was kept on ciprofloxacin, and is being discharged on ciprofloxacin for additional 14 days. For his obstructive uropathy he is being discharged with an indwelling Friedman, he will follow Dr. Linda in 2 weeks. Patient was also managed for elevated troponin likely secondary demand ischemia,Echocardiogram, normal EF, no significant wall motion abnormalities. Blood culture grew gram-positive cocci coagulase-negative staph, repeat blood culture was negative, he was on vancomycin during the hospital stay which was discontinued later. Benign prostatic hyperplasia with urinary retention, has indwelling Friedman on discharge, Flomax was continued.history of paroxysmal atrial fibrillation, currently normal sinus rhythm. Patient responded well to the above medical management and is being discharged in stable condition.He will continue to follow nephrology as outpatient. Physical Exam Const: COMMON NORMALS: patient oriented x3 HENMT: COMMON NORMALS: normocephalic and atraumatic HEAD & SCALP: normocephalic and atraumatic Resp: COMMON NORMALS: clear to auscultation bilaterally AUSCULTATION: clear to auscultation bilaterally Cardio: COMMON NORMALS: regular rate, regular rhythm, S1 normal heart sound present, S2 normal heart sound present, No gallops present (Cardio), No murmurs present (Cardio), No rub (Cardio) and Peripheral pulses 2+ throughout RATE: regular rate RHYTHM: regular rhythm HEART SOUNDS: S1 normal heart sound present and S2 normal heart sound present PERIPHERAL PULSES: Peripheral pulses 2+ throughout GI: COMMON NORMALS: Normal to inspection, nondistended, normoactive bowel sounds present, Soft to palpation, non-tender, No hepatosplenomegaly present and no masses AUSCULTATION: Yes normoactive bowel sounds PALPATION: Yes Soft to palpation and Yes No hepatosplenomegaly present RECTAL EXAM: Yes deferred Extremity: COMMON NORMALS: no clubbing, cyanosis or edema and no pedal edema Neuro: COMMON NORMALS: patient oriented x3 Urinary Catheter Management^: Friedman: Cath Placed During This Visit: no Reason for Continuing Indwelling Catheter: Chronic Indwelling Urinary Catheter on Admission Discharge Data Data Completed and Pending: Completed Studies During Hospitalization Category Date Time Status CT chest abd pel wo con Stat Cat Scan 01/13/21 09:45 Completed XR chest 1V alanna ble [id number] Stat Exams 01/11/21 10:39 Completed CV. echo complete * [id number] Routine Ultrasound 01/12/21 16:10 Completed US abdomen limite d [id number] Routine Ultrasound 01/12/21 16:10 Completed Pending at discharge Category Date Time Status JENNIFER Profile Rheum atology Stat Lab 01/11/21 21:07 Received Blood Culture Sta t Lab 01/11/21 12:01 Results Blood Culture Sta t Lab 01/13/21 15:38 Results Celiac Disease Di agniostic Vizcaino Stat Lab 01/11/21 21:07 Received Clostridioides Di fficile PCR Routin e Lab 01/14/21 10:16 Ordered Labs from last 24 hours 01/15/21 01/15/21 01/15/21 06:23 05:30 05:30 WBC RBC Hgb Hct MCV MCH MCHC RDW Plt Count MPV Neut % (Auto) Lymph % (Auto) [place] % (Auto) Eos % (Auto) Baso % (Auto) Neut # (Auto) Lymph # (Auto) [place] # (Auto) Eos # (Auto) Baso # (Auto) Nucleated RBC % (a uto) Nucleated RBCs # ESR Sodium 142 Potassium 3.7 Chloride 109 H Carbon Dioxide 21 L Anion Gap 15.7 BUN 51 H Creatinine 6.7 H* GFR Calculation 8.5 L Glucose 99 POC Glucose 100 Calculated Osmolal ity 308 H Calcium 8.3 L Total Bilirubin 0.3 AST 21 ALT 9 Alkaline Phosphata se 73 Total Protein 6.4 L Albumin 2.6 L Globulin 3.8 Random Vancomycin < 4.0 L 01/15/21 01/14/21 01/14/21 05:30 19:09 17:13 WBC 9.3 RBC 2.72 L Hgb 7.7 L Hct 25.0 L MCV 91.9 MCH 28.3 MCHC 30.8 RDW 16.9 H Plt Count 207 MPV 11.3 H Neut % (Auto) 76.9 Lymph % (Auto) 9.1 [place] % (Auto) 11.5 Eos % (Auto) 1.0 Baso % (Auto) 0.3 Neut # (Auto) 7.15 Lymph # (Auto) 0.9 [place] # (Auto) 1.1 H Eos # (Auto) 0.1 Baso # (Auto) 0.0 Nucleated RBC % (a uto) 0 Nucleated RBCs # 0.0 ESR Sodium Potassium Chloride Carbon Dioxide Anion Gap BUN Creatinine GFR Calculation Glucose POC Glucose 117 H 88 Calculated Osmolal ity Calcium Total Bilirubin AST ALT Alkaline Phosphata se Total Protein Albumin Globulin Random Vancomycin 01/14/21 01/11/21 11:29 21:07 WBC RBC Hgb Hct MCV MCH MCHC RDW Plt Count MPV Neut % (Auto) Lymph % (Auto) [place] % (Auto) Eos % (Auto) Baso % (Auto) Neut # (Auto) Lymph # (Auto) [place] # (Auto) Eos # (Auto) Baso # (Auto) Nucleated RBC % (a uto) Nucleated RBCs # ESR 38 H Sodium Potassium Chloride Carbon Dioxide Anion Gap BUN Creatinine GFR Calculation Glucose POC Glucose 126 H Calculated Osmolal ity Calcium Total Bilirubin AST ALT Alkaline Phosphata se Total Protein Albumin Globulin Random Vancomycin Vitals: Last Vital Signs Temp 99.0 F 09/27/21 07:11 Pulse 64 01/15/21 07:11 Resp 16 01/15/21 07:11 BP 130/83 01/15/21 07:11 Pulse Ox 97 01/15/21 04:00 Discharge Plan Discharge Patient Disposition: Home Condition: Stable Prescriptions: New ciprofloxacin HCl 500 mg Tablet 500 mg PO Q24H 14 Days Qty: 14 RF: 0 calcitriol 0.25 mcg Capsule 0.25 mcg PO DAILY 30 Days Qty: 30 RF: 3 Continued lidocaine HCl 2 % jelly See Rx Instructions intra-urethral .COMPLEX Qty: 100 RF: 1 tamsulosin 0.4 mg capsule 0.4 mg PO BEDTIME RF: 0 Discharge Orders: Discharge Order (Routine); Ordered 01/15/21 Ordered By: Rodolfo Padilla Other Ambulatory Orders: DME: Hussein (Order) Location: None Selected Ordered By: Rodolfo Padilla Referrals: [facility] [Other] (Chair time Friday, Friday, Friday @ 0630) Ernst Turner MD [Referring] - 1 week ([facility] will call you with an appointment time.) Garry Linda MD [Physician] - 01/29/21 11:00 am [facility] [Occupational Therapist] - Discharge Diet: Regular Discharge Activity: Resume usual activity Patient Instructions: Ciprofloxacin (By mouth), Calcitriol (By mouth), Myocardial Infarction (DC), Acute Kidney Injury (DC), Opioid Safety Discharge Attestations Time Spent in Discharge Care*: less than 30 min Specific Discharge Activities: educating patient, educating and/or supporting family/caregiver, discussing with pcp/other providers, discussing with disability case manager/social workers/dc planners, documenting/other paperwork and evaluating patient/reviewing data Status at Discharge: Cognitive status at discharge: cognitively intact, Behavioral status at discharge: cooperative, Quality Metrics Clinical Quality Measures During this hospital stay, did patient experience: None Coding Level of Care Code Acute Chg FW DC note Exam Detailed Diagnoses 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 N13.9 Benign prostatic hyperplasia with urinary retention N40.1; R33.8 Acute retention of urine R33.8 Acute cystitis N30.00 Acute renal failure N17.9 NSTEMI (non-ST elevated myocardial infarction) I21.4 Chest pain R07.9 Acute uremia N19
[2021-01-15 12:00] VITALS: BP 119/82; PULSE 92; RESP 16; TEMP 36.9; O2SAT 98
[2021-01-15 12:27] LABS: THYROID PEROXIDASE ANTIBODIES 3 IU/mL (<9)
[2021-01-15 12:30] LABS: Glucose Point of Care 98 mg/dL (70-110)
[2021-01-15 12:31] LABS: COMPLEMENT COMPONENT C3C 69 mg/dL (82-185); COMPLEMENT COMPONENT C4C 47 mg/dL (15-53)
[2021-01-15 13:27] LABS: COMPLEMENT, TOTAL (CH50) 56 U/mL (31-60)
--- NOTE | 2021-01-15 14:18 | PM.PN ---
Subjective Subjective: Interval history: No new complaints, he feels comfortable. Seen after dialysis. Dialysis went well, tolerating the therapy. No edema and no other hypervolemia. No uremic sx. Medications: Reviewed: Yes Vitals/I&O/Wt Last Vital Signs Temp 98.5 F 01/15/21 12:00 Pulse 92 01/15/21 12:00 Resp 16 01/15/21 12:00 BP 119/82 01/15/21 12:00 Pulse Ox 98 01/15/21 12:00 01/14/21 01/15/21 01/15/21 22:59 06:59 14:59 Intake Total 500 / 2050 Balance 500 / 1250 Weight last 48 hrs Weight 51.256 kg Physical Exam Narrative: EXAM NARRATIVE: Constitutional: Awake, comfortable HEENT: Wet mucosa, no jvp, non icteric Lungs: Bilaterally clear without discernible wheeze, rales in all lung zones CVS: S1 S2, no murmurs Abdo: Soft, BS ok Ext 4: Minimal edema, peripheral perfusion with no cyanosis Neurological: Grossly non-focal Urinary Catheter Management^: Friedman: Cath Placed During This Visit: no Reason for Continuing Indwelling Catheter: Chronic Indwelling Urinary Catheter on Admission Data : 01/15/21 05:30 01/15/21 05:30 Micro: Microbiology 01/13/21 15:38 Blood Culture - Preliminary Blood NEGATIVE TO DATE 01/13/21 15:43 Blood Culture - Preliminary Blood NEGATIVE TO DATE 01/12/21 15:36 Occult Blood (FIT) - Final Stool 01/13/21 16:35 MRSA Culture - Final Nose A&P Additional A&P Information 1. Renal failure It is likely he has ESRD at this time secondary to obstructive uropathy. Friedman to stay in, mgmt per Urology Cont MWF schedule 3K, ultrafiltration of 1 L. Case management to organize outpatient hemodialysis and local clinic. Dose medication for GFR less than 15 2. Anemia Iron levels robust, will give EPO x1 today. Management per hospital team. 3. Hemodynamics Blood pressure is robust at this time. No changes to antihypertensive medication. 4. Secondary hyperparathyroidism, currently on Rocaltrol. 5. 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
[2021-01-15 14:52] LABS: ANA SCREEN, IFA NEGATIVE (NEGATIVE)
[2021-01-15 16:14] LABS: CENTROMERE B ANTIBODY <1.0 NEG AI (<1.0 NEG); JO-1 ANTIBODY <1.0 NEG AI (<1.0 NEG); RNP ANTIBODY <1.0 NEG AI (<1.0 NEG); SCL-70 ANTIBODY <1.0 NEG AI (<1.0 NEG); SJOGREN'S ANTIBODY (SS-A) <1.0 NEG AI (<1.0 NEG); SM ANTIBODY <1.0 NEG AI (<1.0 NEG); SS-B <1.0 NEG AI (<1.0 NEG)
--- NOTE | 2021-01-15 17:19 | PC.NURSE ---
patient and verbalize understanding of discharge instructions, home medications, follow up appointments, and dialysis schedule.
[2021-01-15 17:22] VITALS: BP 119/82; PULSE 92; RESP 16; TEMP 36.9; O2SAT 98
--- NOTE | 2021-01-17 09:32 | PC.SOCIAL ---
multiple calls made for discharge follow up, unable to reach patient, unable to leave voicemail.
[2021-01-17 12:23] LABS: DNA AB (DS) CRITHIDIA,IFA NEGATIVE (NEGATIVE)
[2021-01-19 01:18] LABS: Immunoglobulin A 562 mg/dL (70-320)
[2021-01-21 02:28] LABS: Gliadin Ab.IgA 1.1 U/mL; Gliadin Ab.IgG <1.0 U/mL; Tissue Transglutaminase IgA Ab <1.0 U/mL; Tissue transglutaminase Ab.IgG 3.1 U/mL
== END 2021-01-15 17:00 | disposition home or self-care (01) | DRG 673 ==
LOC: ER 13:42 → OPS 13:52 → ICU 16:48 → MEDSURG 01-13 17:00
PROVIDERS: Internal Medicine; Student in an Organized Health Care Education/Training Program; Surgery; Admitting Provider Family Medicine; Emergency Provider Family Medicine; Visit Provider Internal Medicine
PROC: 0JH63XZ Insertion of Tunneled Vascular Access Device into Chest Subcutaneous Tissue and Fascia, Percutaneous Approach (ICD-10-PCS; principal; 2021-01-11 14:15)
DX: N17.9 Acute kidney failure, unspecified (principal); K85.90 Acute pancreatitis without necrosis or infection, unspecified; I21.4 Non-ST elevation (NSTEMI) myocardial infarction; I12.0 Hypertensive chronic kidney disease with stage 5 chronic kidney disease or end stage renal disease; N13.8 Other obstructive and reflux uropathy; E46 Unspecified protein-calorie malnutrition; Z68.1 Body mass index [BMI] 19.9 or less, adult; E87.2 Acidosis; E87.1 Hypo-osmolality and hyponatremia; N30.00 Acute cystitis without hematuria; N18.6 End stage renal disease; D63.1 Anemia in chronic kidney disease; N40.1 Benign prostatic hyperplasia with lower urinary tract symptoms; R33.8 Other retention of urine; E87.5 Hyperkalemia; I95.9 Hypotension, unspecified; I48.91 Unspecified atrial fibrillation; E21.3 Hyperparathyroidism, unspecified; B95.62 Methicillin resistant Staphylococcus aureus infection as the cause of diseases classified elsewhere; R19.7 Diarrhea, unspecified; B96.89 Other specified bacterial agents as the cause of diseases classified elsewhere
CPT/HCPCS: 36415; 36416; 36430; 71045; 71250; 74176; 76705; 77001; 80048; 80053; 80061; 80202; 81001; 81003; 82274; 82306; 82310; 82533; 82550; 82607; 82728; 82784; 82962; 83036; 83516; 83540; 83550; 83605; 83690; 83735; 83880; 83970; 84100; 84145; 84443; 84484; 85025; 85610; 85651; 86140; 86160; 86162; 86235; 86255; 86376; 86706; 86803; 86850; 86900; 86920; 87040; 87077; 87086; 87184; 87205; 87340; 87641; 87806; 90935; 93005; 93306; 94664; 96365; 96372; 96375; 97161; 97166; 97530; 99285; C1750; C9113; J0610; J0690; J1644; J1815; J1956; J2405; J2543; J2704; J3010; J3370; J3480; J3490; J7030; J7050; P9016; Q3014; Q4081

== ENCOUNTER → 2021-03-12 12:22 | Day surgery (SDC) | payer OTHER, MEDICAID, SELFPAY ==
[2021-03-12 12:37] VITALS: BP 168/120; PULSE 108; RESP 18; TEMP 36.4; O2SAT 98
[2021-03-12] MEDS: alteplase 1 mg/mL SDV 2 mL 2 MG INTRACATH ×2 (13:05→13:06)
--- NOTE | 2021-03-12 13:42 | PC.NURSE ---
Cathflo infused to venous and arterial lines of dialysis catheter per protocol. Blood return noted after 30 min dwell time. Cathflo removed from both ports and flushed with 10 mL NS and followed with hep lock flush as per protocol. Pt tolerated well.
== END ==
PROVIDERS: PCP Internal Medicine; Visit Provider Internal Medicine
DX: Z49.01 Encounter for fitting and adjustment of extracorporeal dialysis catheter (principal)
CPT/HCPCS: 36593; J1642; J2997

== ENCOUNTER → 2021-03-30 12:10 | Day surgery (SDC) | payer OTHER, MEDICAID, SELFPAY ==
[2021-03-30] MEDS: alteplase 1 mg/mL SDV 2 mL 2 MG INTRACATH ×2 (12:27)
--- NOTE | 2021-03-30 12:40 | PC.NURSE ---
Pt to GI Lab for sluggish flow with dialysis cath to right chest. Cathflo protocol initiated.
[2021-03-30 12:45] VITALS: BP 141/114; PULSE 90; RESP 18; TEMP 36.1; O2SAT 98
--- NOTE | 2021-03-30 13:30 | PC.NURSE ---
Cathflo allowed to dwell for 45 min. Good blood return noted. Very fast pull back in syringe noted. Flushed without difficult with saline and heplock flush per protocol. Pt tolerated well.
== END ==
PROVIDERS: PCP Internal Medicine; Visit Provider Internal Medicine
DX: Z45.2 Encounter for adjustment and management of vascular access device (principal); N18.6 End stage renal disease
CPT/HCPCS: 36593; J1642; J2997

== ENCOUNTER 2021-07-07 14:46 | Emergency (ER) | payer OTHER, MEDICAID, SELFPAY ==
[2021-07-07 14:57] VITALS: BP 149/92; PULSE 102; RESP 16; TEMP 37.1; O2SAT 96; BMI 18.6
--- NOTE | 2021-07-07 15:17 | W.ED.MALEGU ---
Documented by User: CARLOS Velásquez 07/11/21 09:12 HPI - Male Genitourinary General: Chief complaint: Urogenital-Male Stated complaint: burger catheter blockage Time Seen by Provider: 07/07/21 14:51 History of Present Illness: Patient presents with possibly clogged Burger cath. Patient's had an indwelling Bugrer cath since December [address] Linda for an enlarged prostate. Patient says he gets a change every 3 days and he is due to get it changed this Friday. Said he noticed that had difficulties getting urine into the bag yesterday. Now is leaking out around the Burger cath. Patient does not want the cath change presently he wants it flushed because he says it is painful to get the catheter in. Associated symptoms: Deny nausea or vomiting Review of Systems Const: Denies: fever(s), chills or body aches Eyes: Denies: eye discomfort ENMT: Denies: throat pain Card: Denies: chest pain Resp: Denies: dyspnea GI: Denies: abdominal pain, nausea or vomiting : Reports: other (Possible blockage of Burger catheter.) Skin/Breast: Denies: rash Neuro: Denies: headache(s) Psych: Denies: depression or suicidal ideation PFS ED PFSH: Medical History (Updated 07/07/21 @ 16:56 by CARLOS Velásquez) Acute pancreatitis Acute renal failure JAVED (acute kidney injury) Anemia Benign prostatic hyperplasia with urinary retention Bilateral hydronephrosis Elevated PSA Enlarged prostate Hyperphosphatemia Metabolic acidosis No pertinent past medical history 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 Obstructive uropathy Protein calorie malnutrition Sarcopenia Sepsis Urinary retention Urinary retention Surgical History History of tonsillectomy Family History Father , AT AGE 80 Heart abnormality Mother , AT AGE 37 Automobile accident Other Family history non-contributory Social History Alcohol intake: never Household members: spouse Marital status: Current occupational status: unemployed History of recent travel: No Physical Exam Const: COMMON NORMALS: no acute distress, patient oriented x3 and alert HENMT: COMMON NORMALS: normocephalic and external ears normal HEAD & SCALP: normocephalic EXTERNAL EAR: Yes external ears normal Eye: COMMON NORMALS: EOMs intact bilaterally Neck/C-Spine: COMMON NORMALS: no JVD Resp: COMMON NORMALS: normal respiratory effort and No use of accessory muscles Cardio: COMMON NORMALS: no JVD GI: INSPECTION: Yes normal to inspection : OTHER: Burger cath is present. Tube does appear to be age. Burger cath attempted flush. Extremity: COMMON NORMALS: normal to inspection and full ROM Neuro: COMMON NORMALS: patient oriented x3 SENSORIUM/ORIENTATION: Yes alert Psych: COMMON NORMALS: mental status grossly normal Skin: COMMON NORMALS: no rashes or lesions noted GENERAL SKIN EXAM: no rashes or lesions noted Course Vital Signs: Vital signs: Vital Signs Temperature 98.8 F 07/07/21 14:57 Pulse Rate 80 07/07/21 17:59 Respiratory Rate 14 07/07/21 17:59 Blood Pressure 146/98 07/07/21 17:59 Pulse Oximetry 97 07/07/21 17:59 MDM - Male Medical Decision Making Burger was removed due to encrustation. It was not able to be irrigated. After Burger was removed there were a few small blood clots. Nurse attempted to put a 16 coud? and and catheter folded over. Patient did not tolerate well. Patient does not want another catheter tip. Patient [facility] this [facility]. He does have appointment on Friday. Patient does not want another catheter once go home and attempt just voiding on his own. He did void a small amount here. Was pink. Patient not taking any BPH medicine currently. Lab Data Laboratory Results Urine Color Red (Yellow) 07/07/21 16:38 Urine Appearance Bloody (CLEAR) A 07/07/21 16:38 Urine pH 7 (5-7) 07/07/21 16:38 Ur Specific [place] 1.015 (1.005-1.030) 07/07/21 16:38 Urine Protein 3+ (Negative) H 07/07/21 16:38 Urine Glucose (UA) Trace (Normal) H 07/07/21 16:38 Urine Ketones Negative (Negative) 07/07/21 16:38 Urine Blood 3+ (Negative) H 07/07/21 16:38 Urine Nitrate Negative (Negative) 07/07/21 16:38 Urine Bilirubin Neg (Negative) 07/07/21 16:38 Urine Urobilinogen Norm mg/dL (Negative) 07/07/21 16:38 Ur Leukocyte Esterase 2+ (Negative) H 07/07/21 16:38 Urine RBC Too numerous to cnt /hpf (0-2) H 07/07/21 16:38 Urine WBC 5-10 /hpf (0-5) H 07/07/21 16:38 Ur Squamous Epith Cells None /hpf (0-5) 07/07/21 16:38 Amorphous Sediment Not Reportable 07/07/21 16:38 Urine Bacteria Trace /hpf (NONE) 07/07/21 16:38 Discharge Plan Discharge Patient Disposition: Home Clinical Impression: Acute retention of urine, Benign prostatic hyperplasia, Hematuria Condition: Stable Prescriptions: New Bactrim DS 800-160 mg tablet 1 tab PO BID 5 Days Qty: 10 0RF No Action folic acid 1 mg Tablet 1 mg PO DAILY 0RF Discharge Orders: Discharge ED (Routine); Ordered 07/07/21 Ordered By: Valentin Simon Referrals: Robson Gomez MD [Primary Care Provider] - Discharge Diet: As Directed Discharge Activity: Increase activity as tolerated Patient Instructions: Urinary Retention in Men (ED), Benign Prostatic Hypertrophy (BPH) Activity Restrictions/Additional Instructions: Keep fluid intake to a minimal. Do not take any antihistamine medication. [facility] see about getting in before Friday. If urinary retentionreoccurs please return to the ER or follow-up with the [facility]. Sign Out Sign Out Data: Patient Sign Out occurred on 07/07/21 at 17:13. Patient's care was discussed, and care was transferred from to DINORAH Ernst. Coding Level of Care Code ED Inventory Auditor for Chg Fwd Exam Comprehensive Documented by User: DINORAH Ernst 07/07/21 22:05 HPI - Male Genitourinary General: Chief complaint: Urogenital-Male Stated complaint: burger catheter blockage Time Seen by Provider: 07/07/21 14:51 PFSH ED PFSH: Medical History (Updated 07/07/21 @ 16:56 by CARLOS Velásquez) Acute pancreatitis Acute renal failure JAVED (acute kidney injury) Anemia Benign prostatic hyperplasia with urinary retention Bilateral hydronephrosis Elevated PSA Enlarged prostate Hyperphosphatemia Metabolic acidosis No pertinent past medical history 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 Obstructive uropathy Protein calorie malnutrition Sarcopenia Sepsis Urinary retention Urinary retention Surgical History History of tonsillectomy Family History Father , AT AGE 80 Heart abnormality Mother , AT AGE 37 Automobile accident Other Family history non-contributory Social History Alcohol intake: never Household members: spouse Marital status: Current occupational status: unemployed History of recent travel: No Course Vital Signs: Vital signs: Vital Signs Temperature 98.8 F 07/07/21 14:57 Pulse Rate 80 07/07/21 17:59 Respiratory Rate 14 07/07/21 17:59 Blood Pressure 146/98 07/07/21 17:59 Pulse Oximetry 97 07/07/21 17:59 MDM - Male Lab Data I reviewed the patient's lab results. Laboratory Results Urine Color Red (Yellow) 07/07/21 16:38 Urine Appearance Bloody (CLEAR) A 07/07/21 16:38 Urine pH 7 (5-7) 07/07/21 16:38 Ur Specific [place] 1.015 (1.005-1.030) 07/07/21 16:38 Urine Protein 3+ (Negative) H 07/07/21 16:38 Urine Glucose (UA) Trace (Normal) H 07/07/21 16:38 Urine Ketones Negative (Negative) 07/07/21 16:38 Urine Blood 3+ (Negative) H 07/07/21 16:38 Urine Nitrate Negative (Negative) 07/07/21 16:38 Urine Bilirubin Neg (Negative) 07/07/21 16:38 Urine Urobilinogen Norm mg/dL (Negative) 07/07/21 16:38 Ur Leukocyte Esterase 2+ (Negative) H 07/07/21 16:38 Urine RBC Too numerous to cnt /hpf (0-2) H 07/07/21 16:38 Urine WBC 5-10 /hpf (0-5) H 07/07/21 16:38 Ur Squamous Epith Cells None /hpf (0-5) 07/07/21 16:38 Amorphous Sediment Not Reportable 07/07/21 16:38 Urine Bacteria Trace /hpf (NONE) 07/07/21 16:38 Discharge Plan Discharge Patient Disposition: Home Clinical Impression: Acute retention of urine, Benign prostatic hyperplasia, Hematuria Condition: Stable Prescriptions: New Bactrim DS 800-160 mg tablet 1 tab PO BID 5 Days Qty: 10 0RF No Action folic acid 1 mg Tablet 1 mg PO DAILY 0RF Discharge Orders: Discharge ED (Routine); Ordered 07/07/21 Ordered By: Valentin Simon Referrals: Robson Gomez MD [Primary Care Provider] - Discharge Diet: As Directed Discharge Activity: Increase activity as tolerated Patient Instructions: Urinary Retention in Men (ED), Benign Prostatic Hypertrophy (BPH) Activity Restrictions/Additional Instructions: Keep fluid intake to a minimal. Do not take any antihistamine medication. [facility] see about getting in before Friday. If urinary retentionreoccurs please return to the ER or follow[facility] with the [facility]. Sign Out Sign Out Data: Patient Sign Out occurred on 07/07/21 at 17:13. Patient's care was discussed, and care was transferred from to DINORAH Ernst. Coding Level of Care Code ED Inventory Auditor for [place]ar[place] Fwd Exam Comprehensive
[2021-07-07 17:02] VITALS: BP 146/98; PULSE 81; RESP 14; O2SAT 99
--- NOTE | 2021-07-07 17:06 | PC.NURSE ---
Attempted to place urinary catheter. unable to place catheter properly. Provider notified.
[2021-07-07 17:29] LABS: Add Urine Microscopic? YES; Bilirubin Urine Neg (Negative); Blood Urine 3+ (Negative); Glucose Urine UA Trace (Normal); Ketones Urine Negative (Negative); Leukocyte Esterase Urine 2+ (Negative); Nitrate Urine Negative (Negative); Protein Urine 3+ (Negative); Specific Gravity, Urine 1.015 (1.005-1.030); Urine Appearance Bloody (CLEAR); Urine Color Red (Yellow); Urobilinogen Urine Norm (Negative); pH Urine 7 (5-7)
[2021-07-07 17:30] LABS: Add Urine Culture? Yes; Bacteria Urine TRACE /hpf; RBC Urine TOO NUMEROUS TO CNT /hpf (0-2)
[2021-07-07 17:59] VITALS: BP 146/98; PULSE 80; RESP 14; O2SAT 97
== END 2021-07-07 18:02 | disposition home or self-care (01) ==
PROVIDERS: Nurse Practitioner Family; Emergency Provider Physician Assistant; PCP Internal Medicine
DX: N40.1 Benign prostatic hyperplasia with lower urinary tract symptoms (principal); R33.8 Other retention of urine; R31.9 Hematuria, unspecified
CPT/HCPCS: 81001; 87086; 99282

== ENCOUNTER 2023-09-18 16:46 | Inpatient (IN) | payer OTHER, SELFPAY ==
[2023-09-18] VITALS (23 sets, daily range): BP systolic 77–113; BP diastolic 55–90; PULSE 59–92; RESP 9–28; TEMP 36.1–36.6; O2SAT 90–100; BMI 34.4
--- NOTE | 2023-09-18 17:21 | XRR_ITS ---
PROCEDURE INFORMATION: Exam: XR Chest Exam date and time: 09/18/2023 5:43 PM Age: 62 years old Clinical indication: Shortness of breath; Prior surgery; Surgery date: 6+ months; Surgery type: Heart cath; Additional info: Dyspnea/cough TECHNIQUE: Imaging protocol: Radiologic exam of the chest. Views: 1 view. COMPARISON[place] [id number] 01/13/2021 10:15 AM FINDINGS: Tubes, catheters and devices: Left IJ approach central venous catheter positioned with its catheter tip in the right atrium. Irregular opacities in the lung bases with small bilateral pleural effusions. Lungs: Unremarkable. No consolidation. Pleural spaces: See Tubes, catheters and devices finding. Heart/Mediastinum: Unremarkable. No cardiomegaly. Bones/joints: Unremarkable. XR/XR chest 1V portable [id number] IMPRESSION: Irregular opacities in the lung bases with small bilateral pleural effusions.
--- NOTE | 2023-09-18 17:21 | ECG_ITS ---
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 Measurements Intervals [place] Rate: 72 P: 72 PA: 182 QRS: -1 QRSD: 87 T: 60 QT: 389 QTc: 429 Interpretive Statements SINUS RHYTHM WITH FREQUENT VENTRICULAR PREMATURE COMPLEXES LOW QRS VOLTAGE IN EXTREMITY LEADS [QRS DEFLECTION < 0.5 mV IN LIMB LEADS] ANTEROSEPTAL MYOCARDIAL INFARCTION , OF INDETERMINATE AGE [40+ ms Q WAVE IN V1-V4] Compared to ECG 01/12/2021 00:07:18 Low QRS voltage now present Myocardial infarct finding now present Sinus tachycardia no longer present T-wave abnormality no longer present Electronically Signed On 09-19-2023 12:34:40 CDT by Shahid Solis M.D. [email or web address]
--- NOTE | 2023-09-18 17:37 | ED_ITS ---
Documented by User: Alvin Franco DO 09/18/23 18:23 HPI - Weakness 2 General: Chief complaint: Weakness Stated complaint: general weakness Time Seen by Provider: 09/18/23 17:20 Source: patient Mode of arrival: EMS History of Present Illness: 62-[facility]-old [facility] complaint of generalized weakness and hypotension. Patient recently had a significant [place] post [place] he required pressors and developed digital ischemia from long-term use of Levophed. His toes are necrotic bilaterally. He he also developed renal failure and is now on dialysis since July when he had a heart general passenger agent requires 3 L oxygen by nasal cannula at baseline. Maintaining his sats in the low 90s on that at this time. Additionally reports he has decubitus ulcers. His is at the bedside states they are enrolling him in palliative care tomorrow but intend to continue dialysis. MD Complaint: generalized weakness Onset (ago): hour(s) Duration: constant Location: generalized Relieving factors: none Exacerbating factors: none Associated symptoms: Reports decreased appetite and myalgias; Denies chest pain, chills, confusion, melena, diaphoresis, dysuria (Does still make small amounts of urine), easy bruising, fever(s), headache(s), nausea, rash, short of breath, syncope or vomiting Review of Systems 2 Const: Reports: fatigue and malaise; Denies: fever(s), chills or diaphoresis Card: Reports: dyspnea on exertion and orthopnea; Denies: chest pain or syncope Resp: Reports: dyspnea, non-productive cough and wheezing GI: Denies: abdominal pain, nausea, vomiting or melena : Denies: dysuria (Does still make small amounts of urine), urinary frequency or urinary urgency Musc: Reports: back pain; Denies: neck pain Skin/Breast: Denies: rash Neuro: Denies: headache(s) or confusion Giorgio/Lymph: Denies: easy bruising PFSH ED 2 PFSH: Medical History Urinary retention Metabolic acidosis Sepsis Urinary retention Elevated PSA Sarcopenia Protein calorie malnutrition Hyperphosphatemia Anemia Obstructive uropathy Bilateral hydronephrosis Benign prostatic hyperplasia with urinary retention JAVED (acute kidney injury) No pertinent past medical history Acute pancreatitis Enlarged prostate Acute renal failure 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 Surgical History History of tonsillectomy Family History Father , AT AGE 80 Heart abnormality Mother , AT AGE 37 Automobile accident Other Family history non-contributory Social History Alcohol intake: never Substance/Drug Use: never Household members: spouse Marital status: Current occupational status: unemployed Physical Exam 2 Const: GENERAL APPEARANCE: cooperative ORIENTATION/CONSCIOUSNESS: Yes awake, Yes oriented to person, Yes oriented to place and Yes oriented to time HENMT: COMMON NORMALS: normocephalic, atraumatic and hearing grossly normal bilaterally HEAD & SCALP: normocephalic and atraumatic Resp: COMMON NORMALS: normal respiratory effort, No retractions and No use of accessory muscles AUSCULTATION: rhonchi and diminished lung sounds Cardio: COMMON NORMALS: regular rate, regular rhythm and No murmurs present (Cardio) RATE: regular rate RHYTHM: regular rhythm GI: COMMON NORMALS: Soft to palpation and No hepatosplenomegaly present A USCULTATION: Yes normoactive bowel sounds PALPATION: Yes Soft to palpation, No Tenderness to palpation present (GI), No Guarding due to palpation present (GI) and Yes No hepatosplenomegaly present Extremity: OTHER: Toes bilaterally necrotic. This was a result of long-term use of pressors. No signs of erythema no acute induration no swelling. Neuro: SENSORIUM/ORIENTATION: Yes oriented to person, Yes oriented to place and Yes oriented to time Skin: COMMON NORMALS: no rashes or lesions noted GENERAL SKIN EXAM: no rashes or lesions noted Course 2 Vital Signs: Vital signs: Vital Signs Temperature 97.8 F 09/18/23 16:47 Pulse Rate 78 09/18/23 20:06 Respiratory Rate 16 09/18/23 20:06 Blood Pressure 94/66 09/18/23 20:06 Pulse Oximetry 99 09/18/23 20:06 Oxygen Delivery Me thod Nasal Cannula 09/18/23 17:25 Oxygen Flow Rate 3 09/18/23 17:25 MDM - Weakness Medical Decision Making Bilateral lower lobe infiltrates and pleural effusions. Zosyn started labs are pending. Did give the patient a normal saline bolus of 500 Limited bolus because of his history of recent [place] and unsure of his ejection fraction. Additionally suspect small amounts of fluid may put him into flash pulmonary edema. Further fluid pending lab results. Discussed Dr. Platt see his notes are found diagnosis and disposition. Lab Data 09/18/23 17:43 09/18/23 17:43 Radiology Impressions Chest X-Ray 09/18/23 17:21 IMPRESSION: Irregular opacities in the lung bases with small bilateral pleural effusions. Laboratory Results WBC 9.70 10^3/uL (3.29-11.43) 09/18/23 17:43 RBC 3.54 10^6/uL (3.85-5.65) L 09/18/23 17:43 Hgb 11.10 g/dL (11.27-16.99) L 09/18/23 17:43 Hct 35.1 % (37-53) L 09/18/23 17:43 MCV 99.2 fl (82-101) 09/18/23 17:43 MCH 31.4 pg (27-33) 09/18/23 17:43 MCHC 31.6 g/dL (30-55) 09/18/23 17:43 RDW 23.6 % (12.1-15.1) H 09/18/23 17:43 Plt Count 69 10^3/cmm (157-399) L 09/18/23 17:43 MPV 13.3 fL (7.4-10.4) H 09/18/23 17:43 Neut % (Auto) 83.7 % 09/18/23 17:43 Lymph % (Auto) 8.7 % 09/18/23 17:43 [place] % (Auto) 6.2 % 09/18/23 17:43 Eos % (Auto) 0.7 % 09/18/23 17:43 Baso % (Auto) 0.1 % 09/18/23 17:43 Neut # (Auto) 8.12 10^3/uL (1.8-7.7) H 09/18/23 17:43 Lymph # (Auto) 0.8 10^3/uL (0.8-4.8) 09/18/23 17:43 [place] # (Auto) 0.6 10^3/uL (0.2-0.9) 09/18/23 17:43 Eos # (Auto) 0.1 10^3/uL (0.0-0.8) 09/18/23 17:43 Baso # (Auto) 0.0 10^3/uL (0.0-0.1) 09/18/23 17:43 Nucleated RBC % (auto) 0 % 09/18/23 17:43 Nucleated RBCs # 0.0 /100WBC 09/18/23 17:43 Sodium 134 mmol/L (136-145) L 09/18/23 17:43 Potassium 5.0 mmol/L (3.5-5.1) 09/18/23 17:43 Chloride 95 mmol/L (98-107) L 09/18/23 17:43 Carbon Dioxide 25 mmol/L (22-29) 09/18/23 17:43 Anion Gap 19.0 (5-19) 09/18/23 17:43 BUN 33 mg/dL (8-23) H 09/18/23 17:43 Creatinine 3.2 mg/dL (0.7-1.2) H 09/18/23 17:43 GFR Calculation 19.7 mL/min (90-130) L 09/18/23 17:43 Glucose 82 mg/dL (65-115) 09/18/23 17:43 Calculated Osmolality 284 mOsm/kg (285-295) L 09/18/23 17:43 Lactic Acid 3.0 mmol/L (0.5-2.2) H 09/18/23 17:43 Calcium 8.1 mg/dL (8.5-10.5) L 09/18/23 17:43 Total Bilirubin 2.6 mg/dL (0.15-1.2) H 09/18/23 17:43 AST 518 U/L (0-40) H 09/18/23 17:43 ALT 468 U/L (0-41) H 09/18/23 17:43 Alkaline Phosphatase 339 U/L (40-130) H 09/18/23 17:43 Creatine Kinase 665 U/L (39-308) H* 09/18/23 17:43 NT-Pro-B Natriuret Pep > 41035 pg/mL (0-125) H 09/18/23 17:43 Total Protein 6.9 g/dL (6.6-8.7) 09/18/23 17:43 Albumin 2.8 g/dL (3.5-5.2) L 09/18/23 17:43 Globulin 4.1 g/dL (1.3-4.6) 09/18/23 17:43 XR interpretation done by ED provider, pending radiology final review Discharge Plan Discharge Patient Disposition: Admitted As Inpatient Clinical Impression: Sepsis, Pneumonia, End stage renal disease on dialysis, Necrotic toes, Decubitus ulcer, Transaminitis Condition: Stable Coding Level of Care Code ED Concrete Analyst for Chg Fwd Documented by User: Cathy Platt MD 09/18/23 20:27 HPI - Weakness 2 General: Chief complaint: Weakness Stated complaint: general weakness Time Seen by Provider: 09/18/23 17:20 History of Present Illness: 62-year-old [facility] complaint of generalized weakness and hypotension. Patient recently had a significant [place] post [place] he required pressors and developed digital ischemia from long-term use of Levophed. His toes are necrotic bilaterally. He he also developed renal failure and is now on dialysis since July when he had a heart general passenger agent requires 3 L oxygen by nasal cannula at baseline. Maintaining his sats in the low 90s on that at this time. Additionally reports he has decubitus ulcers. His is at the bedside states they are enrolling him in palliative care tomorrow but intend to continue dialysis. COUNTS INCLUDE 234 BEDS AT THE [facility] ED 2 PFSH: Medical History Urinary retention Metabolic acidosis Sepsis Urinary retention Elevated PSA Sarcopenia Protein calorie malnutrition Hyperphosphatemia Anemia Obstructive uropathy Bilateral hydronephrosis Benign prostatic hyperplasia with urinary retention JAVED (acute kidney injury) No pertinent past medical history Acute pancreatitis Enlarged prostate Acute renal failure 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 Surgical History History of tonsillectomy Family History Father , AT AGE 80 Heart abnormality Mother , AT AGE 37 Automobile accident Other Family history non-contributory Social History Alcohol intake: never Substance/Drug Use: never Household members: spouse Marital status: Current occupational status: unemployed Course 2 Vital Signs: Vital signs: Vital Signs Temperature 97.8 F 09/18/23 16:47 Pulse Rate 78 09/18/23 20:06 Respiratory Rate 16 09/18/23 20:06 Blood Pressure 94/66 09/18/23 20:06 Pulse Oximetry 99 09/18/23 20:06 Oxygen Delivery Me thod Nasal Cannula 09/18/23 17:25 Oxygen Flow Rate 3 09/18/23 17:25 MDM - Weakness Medical Decision Making Bilateral lower lobe infiltrates and pleural effusions. Zosyn started labs are pending. Did give the patient a normal saline bolus of 500 Limited bolus because of his history of recent [place] and unsure of his ejection fraction. Additionally suspect small amounts of fluid may put him into flash pulmonary edema. Further fluid pending lab results. Discussed Dr. Platt see his notes are found diagnosis and disposition. Lab review I reviewed lab work. Patient has a BUN/creatinine of 33 and 3.2 with potassium of 5. This is expected in a dialysis patient. However his liver enzymes and CK are elevated which were unexpected. An ultrasound is being ordered at the time of admission. Consultation: I spoke with Dr. Wallace with the hospitalist service who is admitting the patient. He recommends coags and an ultrasound of the liver. Assessment and plan: Sepsis Pneumonia End-stage renal disease on dialysis -0.5 L normal saline bolus. Very careful fluid administration given the patient is a dialysis patient -Broad-spectrum antibiotics were administered. Zyvox and meropenem. -Sepsis quality measures. -Lactic acid with a reflex was ordered. -Blood cultures were ordered. -I discussed the patient with the hospitalist on-call who is admitting the patient. - Discussed findings and plan with patient. Answered any questions. - All laboratory values were reviewed and interpreted personally by myself, the ER physician - All imaging was reviewed and interpreted personally by myself, the ER physician. - Evaluation and treatment of this problem were appropriate in the emergency setting -I spent a total of >35 minutes of critical care time managing the patient, independent of any other practitioner. -The time involved in the performance of separately reportable procedures was not counted towards critical care time. Lab Data 09/18/23 17:43 09/18/23 17:43 Radiology Impressions Chest X-Ray 09/18/23 17:21 IMPRESSION: Irregular opacities in the lung bases with small bilateral pleural effusions. Laboratory Results WBC 9.70 10^3/uL (3.29-11.43) 09/18/23 17:43 RBC 3.54 10^6/uL (3.85-5.65) L 09/18/23 17:43 Hgb 11.10 g/dL (11.27-16.99) L 09/18/23 17:43 Hct 35.1 % (37-53) L 09/18/23 17:43 MCV 99.2 fl (82-101) 09/18/23 17:43 MCH 31.4 pg (27-33) 09/18/23 17:43 MCHC 31.6 g/dL (30-55) 09/18/23 17:43 RDW 23.6 % (12.1-15.1) H 09/18/23 17:43 Plt Count 69 10^3/cmm (157-399) L 09/18/23 17:43 MPV 13.3 fL (7.4-10.4) H 09/18/23 17:43 Neut % (Auto) 83.7 % 09/18/23 17:43 Lymph % (Auto) 8.7 % 09/18/23 17:43 [place] % (Auto) 6.2 % 09/18/23 17:43 Eos % (Auto) 0.7 % 09/18/23 17:43 Baso % (Auto) 0.1 % 09/18/23 17:43 Neut # (Auto) 8.12 10^3/uL (1.8-7.7) H 09/18/23 17:43 Lymph # (Auto) 0.8 10^3/uL (0.8-4.8) 09/18/23 17:43 [place] # (Auto) 0.6 10^3/uL (0.2-0.9) 09/18/23 17:43 Eos # (Auto) 0.1 10^3/uL (0.0-0.8) 09/18/23 17:43 Baso # (Auto) 0.0 10^3/uL (0.0-0.1) 09/18/23 17:43 Nucleated RBC % (auto) 0 % 09/18/23 17:43 Nucleated RBCs # 0.0 /100WBC 09/18/23 17:43 Sodium 134 mmol/L (136-145) L 09/18/23 17:43 Potassium 5.0 mmol/L (3.5-5.1) 09/18/23 17:43 Chloride 95 mmol/L (98-107) L 09/18/23 17:43 Carbon Dioxide 25 mmol/L (22-29) 09/18/23 17:43 Anion Gap 19.0 (5-19) 09/18/23 17:43 BUN 33 mg/dL (8-23) H 09/18/23 17:43 Creatinine 3.2 mg/dL (0.7-1.2) H 09/18/23 17:43 GFR Calculation 19.7 mL/min (90-130) L 09/18/23 17:43 Glucose 82 mg/dL (65-115) 09/18/23 17:43 Calculated Osmolality 284 mOsm/kg (285-295) L 09/18/23 17:43 Lactic Acid 3.0 mmol/L (0.5-2.2) H 09/18/23 17:43 Calcium 8.1 mg/dL (8.5-10.5) L 09/18/23 17:43 Total Bilirubin 2.6 mg/dL (0.15-1.2) H 09/18/23 17:43 AST 518 U/L (0-40) H 09/18/23 17:43 ALT 468 U/L (0-41) H 09/18/23 17:43 Alkaline Phosphatase 339 U/L (40-130) H 09/18/23 17:43 Creatine Kinase 665 U/L (39-308) H* 09/18/23 17:43 NT-Pro-B Natriuret Pep > 73089 pg/mL (0-125) H 09/18/23 17:43 Total Protein 6.9 g/dL (6.6-8.7) 09/18/23 17:43 Albumin 2.8 g/dL (3.5-5.2) L 09/18/23 17:43 Globulin 4.1 g/dL (1.3-4.6) 09/18/23 17:43 Discharge Plan Discharge Patient Disposition: Admitted As Inpatient Clinical Impression: Sepsis, Pneumonia, End stage renal disease on dialysis, Necrotic toes, Decubitus ulcer, Transaminitis Condition: Stable Coding Level of Care Code ED Concrete Analyst for Ashley Cruz
[2023-09-18 17:55] LABS: Basophils % 0.1 %; Eosinophils # 0.1 10^3/uL (0.0-0.8); Eosinophils % 0.7 %; Hematocrit 35.1 % (37-53); Lymphocytes # 0.8 10^3/uL (0.8-4.8); Lymphocytes % 8.7 %; Mean Corpuscular HGB Conc 31.6 g/dL (30-55); Mean Corpuscular Hemoglobin 31.4 pg (27-33); Mean Corpuscular Volume 99.2 fl (82-101); Mean Platelet Volume 13.3 fL (7.4-10.4); Monocytes # 0.6 10^3/uL (0.2-0.9); Monocytes % 6.2 %; Neutrophils # 8.12 10^3/uL (1.8-7.7); Neutrophils % 83.7 %; Nucleated Red Blood Cells % 0 %; Platelet Count 69 10^3/cmm (157-399); Red Blood Count 3.54 10^6/uL (3.85-5.65); Red Cell Distribution Width 23.6 % (12.1-15.1)
[2023-09-18 18:23] LABS: Alanine Aminotransferase 468 U/L (0-41); Albumin Level 2.8 g/dL (3.5-5.2); Alkaline Phosphatase 339 U/L (40-130); Aspartate Amino Transferase 518 U/L (0-40); Blood Urea Nitrogen 33 mg/dL (8-23); Calcium 8.1 mg/dL (8.5-10.5); Carbon Dioxide 25 mmol/L (22-29); Chloride 95 mmol/L (98-107); Globulin 4.1 g/dL (1.3-4.6); Glomerular Filtration Rate 19.7 mL/min (90-130); Glucose 82 mg/dL (65-115); Osmolality Calculated 284 mOsm/kg (285-295); Sodium 134 mmol/L (136-145); Total Bilirubin 2.6 mg/dL (0.15-1.2); Total Protein 6.9 g/dL (6.6-8.7)
[2023-09-18 18:25] LABS: Slide Review Slide Review Perform
[2023-09-18] MEDS: sodium chloride 0.9% 500 ML IV (19:01)
[2023-09-18] MEDS: piperacillin-tazobactam 3.375 GM in sodium chloride 0.9% (plus) 50 ML IV (19:02)
[2023-09-18] MEDS: meropenem 500 MG in sodium chloride 0.9% (plus) 50 ML 100 MG IV (19:22)
[2023-09-18] MEDS: linezolid premix 600 MG/300 ML PREMIX 300 MG IV (19:45)
[2023-09-18 20:02] LABS: Creatine Phosphokinase 665 U/L (39-308)
[2023-09-18 20:05] LABS: Reflex Lactate Order REFLEX LACTIC ORDERD
--- NOTE | 2023-09-18 20:18 | USR_ITS ---
PROCEDURE INFORMATION: Exam: US Abdomen, Limited; Right Upper Quadrant Exam date and time: 09/18/2023 9:03 PM Age: 62 years old Clinical indication: Other: Elevated liver enzymes; Patient HX: Patient was seen here 01/13/[address] reported cholelithiasis. Patient is in renal failure on dialysis, o2 dependent 3l. ; Additional info: Elevated liver ennzymes TECHNIQUE: Imaging protocol: Real time ultrasound of the abdomen with image documentation. Limited exam focused on the right upper quadrant. COMPARISON: US abdomen limited [id number] 01/12/2021 9:44 AM FINDINGS: Pleural spaces: Right-sided pleural effusion. Liver: The liver is diffusely and heterogeneously increased in echogenicity with no focal lesions identified. Gallbladder: Multiple stones in the gallbladder measuring up to 1.4 cm. There is gallbladder wall thickening measuring up to 10 mm which may be due to liver pathology. No sonographic Sin's sign. Biliary ducts: The common bile duct is normal in size measuring 4 mm. Pancreas: Visualized pancreas is unremarkable. Right kidney: Right kidney measures 7.5 cm in length with no hydronephrosis or renal calculus. Visualized aorta and IVC are unremarkable. Intraperitoneal space: Abdominal ascites. US/US liver [id number] IMPRESSION: 1. The liver is diffusely and heterogeneously increased in echogenicity consistent with hepatic parenchymal disease with no focal lesions identified. 2. Cholelithiasis without cholecystitis. 3. Abdominal ascites.
[2023-09-18 20:22] LABS: NT Pro B Type Natriuretic Pept > 70000 pg/mL (0-125)
[2023-09-18 20:58] LABS: Partial Thromboplastin Time 60.3 SECONDS (23.9-36.7)
[2023-09-18 21:09] LABS: INR 6.41 (0.8-1.2)
[2023-09-18 21:11] LABS: Lactic Acid level (Lactate) 2.6 mmol/L (0.5-2.2)
--- NOTE | 2023-09-18 21:57 | PM.HP ---
Providers/Chief Complaint Admitting Physician: Cale Wallace Primary Care Provider: Robson Gomez MD Chief Complaint: general weakness History of Present Illness Kashmir West is a 62 year old male Review of Systems Const: Reports: fatigue, malaise and other (Gen weakness); Denies: fever(s), chills or body aches ENMT: Denies: throat pain Card: Reports: dyspnea on exertion; Denies: chest pain, edema or pre-syncope Resp: Denies: dyspnea, productive cough, change in phlegm color or hemoptysis GI: Denies: abdominal pain, nausea, vomiting, diarrhea, constipation, hematochezia or melena : Reports: other (Anuric since last hospitalization); Denies: flank pain, urinary frequency or hematuria Musc: Denies: back pain, joint swelling or joint redness Skin/Breast: Reports: other (Sacral pressure sores); Denies: rash Neuro: Denies: headache(s) or confusion Endo: Denies: polyuria or polydipsia Medications/Allergies Home Medications Medication Instructions Recorded Confirmed Last Taken Type folic acid 1 mg tablet 1 mg PO DAILY 03/12/21 03/30/21 03/30/21 History Allergies Allergy/AdvReac Type Severity Reaction Status Date / Time adhesive Allergy ADR-Itching Verified 03/30/21 12:14 tamsulosin [From Flomax] AdvReac VOMITING, Verified 03/30/21 12:14 DIZZINESS, BUMPS PFSH Acute PFSH: Medical History Urinary retention Metabolic acidosis Sepsis Urinary retention Elevated PSA Sarcopenia Protein calorie malnutrition Hyperphosphatemia Anemia Obstructive uropathy Bilateral hydronephrosis Benign prostatic hyperplasia with urinary retention JAVED (acute kidney injury) No pertinent past medical history Acute pancreatitis Enlarged prostate Acute renal failure 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 Surgical History History of tonsillectomy Family History Father , AT AGE 80 Heart abnormality Mother , AT AGE 37 Automobile accident Other Family history non-contributory Social History Alcohol intake: never Substance/Drug Use: never Household members: spouse Marital status: Current occupational status: unemployed Vitals/I&O/Wt Last Vital Signs Temp 97.8 F 09/18/23 16:47 Pulse 77 09/18/23 21:30 Resp 22 H 09/18/23 21:30 BP 82/60 09/18/23 21:30 Pulse Ox 98 09/18/23 21:30 O2 Del Method Nasal Cannula 09/18/23 17:25 O2 Flow Rate 3 09/18/23 17:25 09/18/23 09/18/23 09/18/23 06:59 14:59 22:59 Intake Total 900 / 900 Balance 900 / 900 Physical Exam Narrative: Accompanied by his Const: COMMON NORMALS: patient oriented x3 and alert GENERAL APPEARANCE: cooperative and frail appearing ORIENTATION/CONSCIOUSNESS: Yes awake OTHER: Weak HENMT: COMMON NORMALS: oropharynx normal Neck/C-Spine: COMMON NORMALS: no JVD Chest: OTHER: Dialysis catheter in the left chest. Appears clean, no bleeding, no surrounding erythema. Resp: COMMON NORMALS: normal respiratory effort and clear to auscultation bilaterally AUSCULTATION: clear to auscultation bilaterally Cardio: COMMON NORMALS: no JVD, regular rhythm, S1 normal heart sound present, S2 normal heart sound present and No murmurs present (Cardio) RHYTHM: regular rhythm HEART SOUNDS: S1 normal heart sound present and S2 normal heart sound present GI: COMMON NORMALS: Normal to inspection, nondistended, normoactive bowel sounds present, Soft to palpation and non-tender PALPATION: Yes Soft to palpation Extremity: COMMON NORMALS: no joint enlargement and no pedal edema OTHER: Dry gangrene of toes on bilateral feet Neuro: COMMON NORMALS: patient oriented x3 and moves all extremities SENSORIUM/ORIENTATION: Yes alert Skin: COMMON NORMALS: no rashes or lesions noted GENERAL SKIN EXAM: no rashes or lesions noted Data 09/18/23 17:43 09/18/23 17:43 Micro: Microbiology 09/18/23 18:57 Blood Culture - Preliminary Blood SPECIMEN COLLECTED 09/18/23 18:42 Blood Culture - Preliminary Blood SPECIMEN COLLECTED A&P Assessment and plan (1) Hypotension: Generalized weakness, hypotension after dialysis. Per discussion with him and history obtained from his he has had issues with soft blood pressures ever since being in the hospital back in July. Has been taking midodrine 3 times daily. Reviewed vitals, CBC, INR, CMP, lactic acid, CK, NT-proBNP, EKG, no sign of acute SD on my interpretation, pending official read. Reviewed chest x-ray, liver ultrasound. Reviewed ER note, discussed with ER provider. Discussed with offset pressman, appreciate consultation with regards to severe cardiomyopathy. Discussed with patient and his . Hypotensive, possible cardiogenic shock. Received small bolus in ER on initial resuscitation. Hold off additional fluids. Will add Levophed. At risk of worsening cardiogenic shock, low output heart failure. Hold off any antihypertensives for now. His is going to get us his home med list as otherwise we are unable to at the moment to get it from [place] [facility]. Records are also requested from [facility] in [place]. Lower chance of sepsis , without fever, no leukocytosis, although does have some basilar infiltrates on chest x-ray. Lactic acidosis but suspect due to cardiogenic shock. For now empirically on Zosyn, linezolid. (2) Ischemic cardiomyopathy: From history obtained from patient's it seems that during hospitalization in July where he had a difficult hospital course after MRI with shock, requiring pressors, with complications with worsening renal failure, requiring to restart dialysis, with dry gangrene of his toes. From history obtained from his with him confirming, intervention was considered, including consideration of possibly high risk stents, but he had declined the intervention. Ejection fraction reportedly was 10-15%. There was no defibrillator or LifeVest arrangement. It appears that patient and his have been getting in touch to try to make arrangements for palliative care, not yet hospice. Per discussion with him and his they do understand that he is at severe risk of cardiac complications, severe life-threatening arrhythmia, other complications including organ hypoperfusion, low output failure with additional organ failure, cardiogenic shock, other complications including elevated risk of . From speaking with both of them, patient defers resuscitation choices to his , but on discussion with both him they are in agreement that in case of cardiopulmonary arrest resuscitation would not have a high chance of success with very high chance of additional suffering. The do agree in case of shockable rhythm for administration of shock. Per discussion with his I would be okay with her coming in if possible to spend time with him beyond visiting hours. His is going to get us the list of his medications and I am also requesting records from [facility] from his recent hospitalization. Requesting cardiology consultation. Monitor on telemetry. Check magnesium. Hold off further fluid resuscitation given severely diminished EF. He currently does not appear to have fluid retention apart from some noted ascites on liver ultrasound. (3) Liver dysfunction: Liver dysfunction of unknown duration. He did have significant shock, pressor requirement during hospitalization and July in [facility], it is unclear whether this transaminitis still improving from prior or is new. Albumin is noted low. We checked INR as well, INR is 6.41. Unknown home medications. Platelets low at 69. Discussed with him and his concern for possible progression to acute liver failure, however, we will reassess liver parameters. Continue midodrine. Levophed added. Maintain MAP 65 mmHg. Reassess liver parameters, platelets, INR. Will check baseline ammonia. (4) ESRD (end stage renal disease): Discussed with ventilated rib fitter, appreciate consultation. He normally gets dialysis TTS. Has a left-sided chest dialysis catheter. (5) Thrombocytopenia: With liver dysfunction, possibly due to his severe cardiomyopathy, prior platelets do appear to be normal. Unknown home medications, his went to get his medication list. SCDs for VTE prophylaxis for now, with elevated INR, no home medications, hold off anticoagulant for now, reassess blood counts. (6) Opacities of both lungs present on chest x-ray: Possibly atelectasis, possibly pneumonia although somewhat less likely he does not have respiratory symptoms, no fever, no leukocytosis. Additionally with severe cardiomyopathy as per history obtained from his . Hold off any additional IV fluids, may be prone to pleural effusions. Monitor CATHI. Add incentive spirometer. Monitor oxygenation. Plan BPH: Pending home medication list. Anemia: Hemoglobin is better than previously at 11.1. Recheck blood counts. His is going to call in or bring his home medication list, she is trying to do so sometime tonight if she can, please review and resume as appropriate once available. Attestations Medical Necessity Statement*: Admission of over 2 midnights anticipated for assessment management of hypotension, cardiogenic shock and gentleman with severe cardiomyopathy, liver dysfunction, possible progression to acute liver failure, Coding Level of Care Code Critical Care >/= 30 minutes Critical care time (in minutes): 65 The high probability of a clinically significant, sudden or life threatening deterioration, as referenced in this documentation, required my full and direct attention, intervention and personal management. The critical care time shown is in addition to time spent performing any reported separately billable procedures and includes the following: [x] Data and vital sign review and interpretation [x] Patient assessment, examination and intervention [x] Medication orders and management [x] Patient/Family updates as able [x] Care Coordination and Documentation. Diagnoses Hypotension I95.9 Ischemic cardiomyopathy I25.5 Liver dysfunction K76.89 ESRD (end stage renal disease) N18.6 Thrombocytopenia D69.6 Opacities of both lungs present on chest x-ray R91.8
--- NOTE | 2023-09-18 22:12 | P.CONIM_ITS ---
Providers/Reason For Consult 2 Consulting Physician/Specialty*: Edwin Morfin MD / telenephrology Reason for Consult*: ESRD care Requesting Physician: DR Webber Attending Physician: Cale Wallace Primary Care Provider: Robson Gomez MD History of Present Illness History of Present Illness Kashmir West is a 62 year old male w/ h/o CKD from urinary retention- required dialysis in the past. Then recent [place] in Ari 2023- he developed severe ischemic cardiomyopathy. He was pressor dependent and required to be put back on HD. He has developed PVD, decubitus ulcers. The patient went to dialysis today- he was short of breath. and sent to the ER. In the ER, he was diagnosed with PNA and b/l pleural effusions. He is hypotensive. started on abx and was admitted to the ICU. Review of Systems 2 Narrative: weak, SOB, decubiti ulcers, poor appetite, orthopnea, leg pains, nausea, cough. rest of ROS was negative Medications/Allergies Home Medications Medication Instructions Recorded Confirmed Last Taken Type folic acid 1 mg tablet 1 mg PO DAILY 03/12/21 03/30/21 03/30/21 History Allergies Allergy/AdvReac Type Severity Reaction Status Date / Time adhesive Allergy ADR-Itching Verified 03/30/21 12:14 tamsulosin [From Flomax] AdvReac VOMITING, Verified 03/30/21 12:14 DIZZINESS, BUMPS PFSH Acute 2 PFSH: Medical History Urinary retention Metabolic acidosis Sepsis Urinary retention Elevated PSA Sarcopenia Protein calorie malnutrition Hyperphosphatemia Anemia Obstructive uropathy Bilateral hydronephrosis Benign prostatic hyperplasia with urinary retention JAVED (acute kidney injury) No pertinent past medical history Acute pancreatitis Enlarged prostate Acute renal failure 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 Surgical History History of tonsillectomy Family History Father , AT AGE 80 Heart abnormality Mother , AT AGE 37 Automobile accident Other Family history non-contributory Social History Alcohol intake: never Substance/Drug Use: never Household members: spouse Marital status: Current occupational status: unemployed Vitals/I&O/Wt Last Vital Signs Temp 97.8 F 09/18/23 16:47 Pulse 77 09/18/23 21:30 Resp 22 H 09/18/23 21:30 BP 82/60 09/18/23 21:30 Pulse Ox 98 09/18/23 21:30 O2 Del Method Nasal Cannula 09/18/23 17:25 O2 Flow Rate 3 09/18/23 17:25 09/18/23 09/18/23 09/18/23 06:59 14:59 22:59 Intake Total 900 / 900 Balance 900 / 900 Physical Exam 2 Narrative: ill appearing in bed, short of breat h on nc heent- nc/at, eomi, icteric neck suppl lungs dull abses and crackles heart reg abd soft, +BS ext + b/l leg edema, ischemic toes neuro- a,a, o x 2+ access- left IJ permacath examined by RN- telehealth visit Data 09/18/23 17:43 09/18/23 17:43 Micro: Microbiology 09/18/23 18:57 Blood Culture - Preliminary Blood SPECIMEN COLLECTED 09/18/23 18:42 Blood Culture - Preliminary Blood SPECIMEN COLLECTED A&P Assessment and plan (1) ESRD (end stage renal disease): 62 yr old man 1. ESRD -will attempt HD in the morning if BP is better 2. PNA - renal dose abx 3. CAD and cardiomyopathy- consider repat echo to assess for possible pericardial effusion. pressors per medicine. however, he has ischemic toes elevated BNP noted 4. thrombocytopenia, inc LFTs, and INR of 6- liver failure can be from Cardiomyopathy, hypotension. review meds. liver us reveals echogenic liver, ascites, cholelithiasis w/o cholecystitis consider tapping ascites to evaluate for SBP 5. mild hyponatremia 6. send urine for ua and cx. place burger 7. PVD-ischemic toes seen and examined w/ rN- telehealth visit informed consent obtained for telehealth and for hemodialysis prognosis is guarded discussed w/ pt, RN, and Dr Webber Plan see above Consult Attestations 2 Medical Necessity Statement: cardiac shock, liver failure, ESRD, Q PNA Time Spent in Patient Care: Greater than 35 minutes Coding Level of Care Code Acute Code for Chg Fwd Diagnoses ESRD (end stage renal disease) N18.6
[2023-09-18] MEDS: midodrine 5 mg TABLET PO (22:46)
[2023-09-18] MEDS: norepinephrine 4 MG/250 ML BAG 7.5 MG IV (23:37)
[2023-09-18 23:45] LABS: Hepatitis B Surface Antigen Non-Reactive (Nonreactive)
[2023-09-19] VITALS (73 sets, daily range): BP systolic 79–152; BP diastolic 52–122; PULSE 51–85; RESP 10–51; TEMP 36.3–36.6; O2SAT 76–100
[2023-09-19 00:04] LABS: Hepatitis B Surface AB > 1000.0 (11.5-1000); Hepatitis C Virus Antibody Non-Reactive (Nonreactive)
[2023-09-19 00:19] LABS: Ammonia 21 umol/L (16-60)
[2023-09-19 03:54] LABS: Basophils % 0.1 %; Eosinophils # 0.2 10^3/uL (0.0-0.8); Eosinophils % 1.9 %; Hematocrit 31.9 % (37-53); Lymphocytes # 0.7 10^3/uL (0.8-4.8); Lymphocytes % 7.9 %; Mean Corpuscular HGB Conc 31.3 g/dL (30-55); Mean Corpuscular Hemoglobin 30.6 pg (27-33); Mean Corpuscular Volume 97.6 fl (82-101); Mean Platelet Volume 13.7 fL (7.4-10.4); Monocytes # 0.6 10^3/uL (0.2-0.9); Monocytes % 6.5 %; Neutrophils # 7.06 10^3/uL (1.8-7.7); Neutrophils % 83.2 %; Nucleated Red Blood Cells % 0 %; Platelet Count 70 10^3/cmm (157-399); Red Blood Count 3.27 10^6/uL (3.85-5.65); Red Cell Distribution Width 23.4 % (12.1-15.1); White Blood Count 8.48 10^3/uL (3.29-11.43)
[2023-09-19 04:06] LABS: Alanine Aminotransferase 387 U/L (0-41); Albumin Level 2.5 g/dL (3.5-5.2); Alkaline Phosphatase 279 U/L (40-130); Anion Gap 17.8 (5-19); Aspartate Amino Transferase 388 U/L (0-40); Blood Urea Nitrogen 41 mg/dL (8-23); Calcium 8.2 mg/dL (8.5-10.5); Carbon Dioxide 25 mmol/L (22-29); Chloride 97 mmol/L (98-107); Globulin 3.4 g/dL (1.3-4.6); Glomerular Filtration Rate 16.2 mL/min (90-130); Glucose 87 mg/dL (65-115); Magnesium 2.1 mg/dL (1.7-2.3); Osmolality Calculated 289 mOsm/kg (285-295); Phosphorus 6.8 mg/dL (2.5-4.5); Potassium 4.8 mmol/L (3.5-5.1); Sodium 135 mmol/L (136-145); Total Bilirubin 2.6 mg/dL (0.15-1.2); Total Protein 5.9 g/dL (6.6-8.7)
[2023-09-19 04:12] LABS: Calcium 7.7 mg/dL (8.5-10.5); Iron 44 ug/dL (59-158); Percent Saturation 33.5 % (20-50); Total Iron Binding Capacity 131 mcg/dl; Unsaturated Iron Binding 87 ug/dL (112-347)
[2023-09-19 04:17] LABS: Creatinine Clr Calc Pharmacy 17.4395
[2023-09-19 04:19] LABS: Parathyroid Hormone 685.7 pg/mL (15-65)
[2023-09-19 04:27] LABS: 25 Hydroxy Vitamin D 24 ng/mL (30-100)
[2023-09-19 04:42] LABS: Ferritin 2081 ng/mL (30-400)
[2023-09-19 04:44] LABS: INR 5.14 (0.8-1.2)
[2023-09-19 04:51] LABS: Slide Review Slide Review Perform
[2023-09-19] MEDS: linezolid premix 600 MG/300 ML PREMIX 300 MG IV ×2 (05:12→19:43)
[2023-09-19] MEDS: piperacillin-tazobactam 3.375 GM in sodium chloride 0.9% (plus) 50 ML IV ×2 (06:11→19:42)
--- NOTE | 2023-09-19 07:46 | PC.PHAR ---
PT IS [facility] FOR MED LIST 09/19/23 7:45AM
[2023-09-19] MEDS: midodrine 5 mg TABLET PO ×2 (08:39→15:24)
--- NOTE | 2023-09-19 09:56 | P.PN_ITS ---
Subjective 2 Subjective: feels better. less sob. more awake. weak, tires. nausea. no dubon or cp or diarrhea. Medications: Reviewed: Yes Medication Review Details: Current Medications Acetaminophen (Acetaminophen 325 Mg Tablet) 650 mg PO Q6H PRN PRN Reason: Mild/Mod Pain Or Temp >/= 101 Piperacillin Sod/Tazobactam (Sod 3.375 gm/ Sodium Chloride) 50 mls @ 12.5 mls/hr IV Q12H FLOYD; Protocol Last Admin: 09/19/23 06:11 Dose: 12.5 mls/hr Linezolid (Zyvox Premix) 600 mg in 300 mls @ 300 mls/hr IV Q12H FLOYD; Protocol Last Titration: 09/19/23 06:21 Dose: 0 mls/hr Albumin Human (Albumin) 12.5 gm in 50 mls @ 60 mls/hr IV PRN PRN PRN Reason: Hypotension and/or symptomatic norepinephrine (Levophed) 4 mg in 250 mls @ 0 mls/hr IV .Q0M FLOYD; Protocol Last Titration: 09/19/23 08:40 Dose: 0 mcg/min, 0 mls/hr Midodrine (Midodrine 5 Mg Tablet) 5 mg PO TID FLOYD Last Admin: 09/19/23 08:39 Dose: 5 mg Ondansetron HCl (Ondansetron 2 Mg/Ml Sdv 2 Ml) 4 mg IVP Q8H PRN PRN Reason: vomiting, or N/V if npo Vitals/I&O/Wt Last Vital Signs Temp 97.8 F 09/19/23 08:00 Pulse 73 09/19/23 09:11 Resp 18 09/19/23 09:11 BP 89/61 09/19/23 00:30 Pulse Ox 97 09/19/23 09:11 O2 Del Method Nasal Cannula 09/19/23 09:11 O2 Flow Rate 2 09/19/23 09:11 09/18/23 09/19/23 09/19/23 22:59 06:59 14:59 Intake Total 900 / 900 441 / 1341 21.875 / 21.875 Output Total 0 / 0 Balance 900 / 900 441 / 1341 21.875 / 21.875 Weight last 48 hrs Weight 79.946 kg Weight 79.917 kg Physical Exam 2 Narrative: ill appearing in bed, using nc 02 heent- nc/at, eomi, anicteric neck supple lungs dull bases and crackles b/l heart reg +ÁLVARO abd soft, +BS ext + b/l leg edema, ischemic toes neuro- a,a, o x 2+ access- left IJ permacath examined by RN- telehealth visit Data 09/19/23 03:20 09/19/23 03:20 Micro: Microbiology 09/18/23 18:57 Blood Culture - Preliminary Blood SPECIMEN COLLECTED 09/18/23 18:42 Blood Culture - Preliminary Blood SPECIMEN COLLECTED A&P Assessment and plan (1) ESRD (end stage renal disease): 62 yr old man 1. ESRD -will attempt HD today on 2 k bath 2. PNA - renal dose abx 3. CAD and cardiomyopathy- consider repat echo to assess for possible pericardial effusion. pressors per medicine. however, he has ischemic toes elevated BNP noted 4. thrombocytopenia, inc LFTs, and INR of 6. inr down to 5.1, LFTs slowly improving. - liver failure can be from Cardiomyopathy, hypotension. review meds. liver us reveals echogenic liver, ascites, cholelithiasis w/o cholecystitis consider tapping ascites to evaluate for SBP 5. anemia- ferritin 2080- can use epo if hgb goes under 10 6.mild hyponatremia- send urine for ua and cx. place burger 7. replace vit d and give zemplar 8. PVD-ischemic toes seen and examined w/ rN- telehealth visit informed consent obtained for telehealth and for hemodialysis discussed w/ pt and RN Plan see above Attestations 2 Medical Necessity Statement*: esrd, hypotension, inc lfts. needs dialysis Time Spent in Patient Care: Greater than 35 minutes Coding Level of Care Code Acute Code for Chg Fwd Diagnoses ESRD (end stage renal disease) N18.6
--- NOTE | 2023-09-19 10:07 | P.CONIM_ITS ---
Providers/Reason For Consult 2 Consulting Physician/Specialty*: Shahid Solis MD/ Cardiology Reason for Consult*: Cardiomyopathy Requesting Physician: Dr Wallace Attending Physician: Alma Dickey MD Primary Care Provider: Robson Gomez MD History of Present Illness History of Present Illness Kashmir West is a 62 year old male with past medical history of end-stage renal disease, recent [place] in July when no intervention was done. He presented to the hospital with weakness and hypotension. Patient has necrotic toes reportedly from long-term use of Levophed while he was in the hospital for his [place] management. He was told his EF is 10 to 15%. Patient's INR is elevated. Per ER note there was consideration for palliative care and he was going to be enrolled for it. Patient denies active chest pain. There was concern for cardiogenic shock. Currently on levophed. Patient does not want invasive procedure. Review of Systems 2 Const: Reports: fatigue and malaise; Denies: fever(s), chills or diaphoresis Card: Reports: dyspnea on exertion and orthopnea; Denies: chest pain or syncope Resp: Reports: dyspnea, non-productive cough and wheezing GI: Denies: abdominal pain, nausea, vomiting or melena : Denies: dysuria (Does still make small amounts of urine), urinary frequency or urinary urgency Musc: Reports: back pain; Denies: neck pain Skin/Breast: Denies: rash Neuro: Denies: headache(s) or confusion Giorgio/Lymph: Denies: easy bruising Medications/Allergies Home Medications Medication Instructions Recorded Confirmed Last Taken Type folic acid 1 mg tablet 1 mg PO DAILY 03/12/21 09/19/23 03/30/21 History amiodarone 200 mg tablet 200 mg PO DAILY 09/19/23 09/19/23 Unknown History apixaban 5 mg tablet 5 mg PO BID 09/19/23 09/19/23 Unknown History atorvastatin 40 mg PO DAILY 09/19/23 09/19/23 Unknown History clopidogrel 75 mg tablet (Plavix) 75 mg PO DAILY 09/19/23 09/19/23 Unknown History melatonin 5 mg tablet 6 mg PO BEDTIME PRN Sleep 09/19/23 09/19/23 Unknown History midodrine 10 mg tablet 10 mg PO TID 09/19/23 09/19/23 Unknown History oxycodone 5 mg tablet 5 mg PO DAILY PRN Pain 09/19/23 09/19/23 Unknown History Allergies Allergy/AdvReac Type Severity Reaction Status Date / Time adhesive Allergy ADR-Itching Verified 03/30/21 12:14 tamsulosin [From Flomax] AdvReac VOMITING, Verified 03/30/21 12:14 DIZZINESS, BUMPS Current Medications Generic Name Dose Route Start Last Admin Trade Name Freq PRN Reason Stop Dose Admin Piperacillin Sod/Tazobactam 50 mls @ 12.5 mls/hr 09/19/23 07:00 09/19/23 06:11 Sod 3.375 gm/ Sodium Chloride IV 12.5 mls/hr Q12H FLOYD Administration Protocol Linezolid 600 mg in 300 mls @ 300 mls/hr 09/19/23 06:00 09/19/23 06:21 Zyvox Premix IV Infused Q12H FLOYD Infusion Protocol norepinephrine 4 mg in 250 mls @ 0 mls/hr 09/18/23 23:00 09/19/23 08:40 Levophed IV 0 mcg/min .Q0M FLOYD 0 mls/hr Titration Protocol Per Protocol Midodrine 5 mg 09/18/23 22:34 09/19/23 08:39 Midodrine 5 Mg Tablet PO 5 mg TID FLOYD Administration PFSH Acute 2 PFSH: Medical History Urinary retention Metabolic acidosis Sepsis Urinary retention Elevated PSA Sarcopenia Protein calorie malnutrition Hyperphosphatemia Anemia Obstructive uropathy Bilateral hydronephrosis Benign prostatic hyperplasia with urinary retention JAVED (acute kidney injury) No pertinent past medical history Acute pancreatitis Enlarged prostate Acute renal failure 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 Surgical History History of tonsillectomy Family History Father , AT AGE 80 Heart abnormality Mother , AT AGE 37 Automobile accident Other Family history non-contributory Social History Alcohol intake: never Substance/Drug Use: never Household members: spouse Marital status: Current occupational status: unemployed Vitals/I&O/Wt Last Vital Signs Temp 97.8 F 09/19/23 08:00 Pulse 73 09/19/23 09:11 Resp 18 09/19/23 09:11 BP 89/61 09/19/23 00:30 Pulse Ox 97 09/19/23 09:11 O2 Del Method Nasal Cannula 09/19/23 09:11 O2 Flow Rate 2 09/19/23 09:11 09/18/23 09/19/23 09/19/23 22:59 06:59 14:59 Intake Total 900 / 900 441 / 1341 21.875 / 21.875 Output Total 0 / 0 Balance 900 / 900 441 / 1341 21.875 / 21.875 Weight last 48 hrs Weight 176 lb 4 oz Weight 176 lb 3 oz Physical Exam 2 Narrative: GENERAL: Patient is alert, awake and oriented x3. [] NECK: No jugular vein distension. [] HEENT: No cyanosis. No icterus. No pallor. [] HEART: Regular S1 and S2. No murmur, rub or gallop. [] LUNGS: Clear to auscultate bilaterally. [] CENTRAL NERVOUS SYSTEM: Grossly nonfocal. [] EXTREMITIES: Lower extremities with 1+ edema bilaterally. Data 09/19/23 03:20 09/19/23 03:20 Micro: Microbiology 09/18/23 18:57 Blood Culture - Preliminary Blood SPECIMEN COLLECTED 09/18/23 18:42 Blood Culture - Preliminary Blood SPECIMEN COLLECTED A&P Assessment and plan (1) Ischemic cardiomyopathy: (2) Thrombocytopenia: (3) Hypotension: (4) Liver dysfunction: (5) Transaminitis: (6) ESRD (end stage renal disease): (7) Necrotic toes: (8) Decubitus ulcer: Plan Patient has multiple medical problems. Recent [place] with EF of 10 to 15% as reported by patient and family. This was at outside hospital. We will obtain records. He has multiple severe medical conditions with end-stage renal disease on dialysis, CHF with EF of 10 to 15%, he refused invasive procedures after the [place] in july. Continue medical therapy. Maintain BP. INR is over 5. Apparently was on eliquis at home. Once INR normalizes, can resume it. Troponins have not been checked, Can obtain a series Can repeat limited echocardiogram Goals of care discussion patient is important. Prognosis is overall very poor. Palliative care/hospice will be appropriate if patient and family agree. Patient and family do not want any invasive procedures and benefit of those will be limited as well as per their history. Thank you for involving us with care of this patient. We will continue to follow. Please call with questions. Consult Attestations 2 Medical Necessity Statement: Care expected to cross 2 midnights. Coding Level of Care Code Acute Code for [facility] Fwd Diagnoses Ischemic cardiomyopathy I25.5 Thrombocytopenia D69.6 Hypotension I95.9 Liver dysfunction K76.89 Transaminitis R74.01 ESRD (end stage renal disease) N18.6 Necrotic toes I96 Decubitus ulcer L89.90
[2023-09-19] MEDS: albumin 12.5 GM/50 ML VIAL IV ×2 (10:40→11:13)
[2023-09-19] MEDS: cholecalciferol (vitamin D3) 1,000 unit Tablet 1000 UNIT PO (11:43)
[2023-09-19] MEDS: b-complex-vitamin c Tablet 1 EACH PO (11:43)
[2023-09-19] MEDS: paricalcitol 2 mcg/mL SDV 1 mL 3 MCG IV (11:44)
--- NOTE | 2023-09-19 18:02 | P.PN_ITS ---
Subjective 2 Subjective: Undergoing dialysis today. Medications: Reviewed: Yes Medication Review Details: Current Medications Acetaminophen (Acetaminophen 325 Mg Tablet) 650 mg PO Q6H PRN PRN Reason: Mild/Mod Pain Or Temp >/= 101 Piperacillin Sod/Tazobactam (Sod 3.375 gm/ Sodium Chloride) 50 mls @ 12.5 mls/hr IV Q12H FLOYD; Protocol Last Admin: 09/19/23 06:11 Dose: 12.5 mls/hr Linezolid (Zyvox Premix) 600 mg in 300 mls @ 300 mls/hr IV Q12H FLOYD; Protocol Last Titration: 09/19/23 06:21 Dose: 0 mls/hr Albumin Human (Albumin) 12.5 gm in 50 mls @ 60 mls/hr IV PRN PRN PRN Reason: Hypotension and/or symptomatic norepinephrine (Levophed) 4 mg in 250 mls @ 0 mls/hr IV .Q0M FLOYD; Protocol Last Titration: 09/19/23 08:40 Dose: 0 mcg/min, 0 mls/hr Midodrine (Midodrine 5 Mg Tablet) 5 mg PO TID FLOYD Last Admin: 09/19/23 08:39 Dose: 5 mg Ondansetron HCl (Ondansetron 2 Mg/Ml Sdv 2 Ml) 4 mg IVP Q8H PRN PRN Reason: vomiting, or N/V if npo Vitals/I&O/Wt Last Vital Signs Temp 97.8 F 09/19/23 08:00 Pulse 0 L 09/19/23 17:30 Resp 25 H 09/19/23 17:30 BP 87/58 09/19/23 17:15 Pulse Ox 97 09/19/23 17:30 O2 Del Method Nasal Cannula 09/19/23 17:30 O2 Flow Rate 2 09/19/23 17:30 09/19/23 09/19/23 09/19/23 06:59 14:59 22:59 Intake Total 441 / 1341 576.438 / 576.438 96.75 / 673.188 Output Total 0 / 0 Balance 441 / 1341 576.438 / 576.438 96.75 / 673.188 Weight last 48 hrs Weight 79.946 kg Weight 79.917 kg Physical Exam 2 Narrative: General: Lethargic, chronically ill-appearing HEENT: PERRLA, pupils bilaterally equal and reactive, pallors not present Chest: Normal vesicular breath sounds, no added sounds, equal good air entry bilaterally CVS: S1-S2 regular, no murmurs, no tachycardia, no gallops, no rubs Abdomen: Soft, nontender, no organomegaly, bowel sounds present Extremities: No necrosis bilaterally Data 09/19/23 03:20 09/19/23 03:20 Micro: Microbiology 09/18/23 18:57 Blood Culture - Preliminary Blood SPECIMEN COLLECTED 09/18/23 18:42 Blood Culture - Preliminary Blood SPECIMEN COLLECTED A&P Assessment and plan (1) Hypotension: Generalized weakness, hypotension after dialysis. Per discussion with him and history obtained from his he has had issues with soft blood pressures ever since being in the hospital back in July. Has been taking midodrine 3 times daily. Increased dose of midodrine to 10 mg 3 times a day reviewed vitals, CBC, INR, CMP, lactic acid, CK, NT-proBNP, EKG, no sign of acute [place] on my interpretation, pending official read. Reviewed chest x-ray, liver ultrasound. appreciate cardiology consultation with regards to severe cardiomyopathy. Discussed with patient and his . Hypotensive, possible cardiogenic shock. Continue Levophed, uptitrate midodrine Records are also requested from [facility] in [place]. Lower chance of sepsis , without fever, no leukocytosis, although does have some basilar infiltrates on chest x-ray. Lactic acidosis but suspect due to cardiogenic shock. For now empirically on Zosyn (2) Ischemic cardiomyopathy: From history obtained from patient's it seems that during hospitalization in July where he had a difficult hospital course after [place] with shock, requiring pressors, with complications with worsening renal failure, requiring to restart dialysis, with dry gangrene of his toes. From history obtained from his with him confirming, intervention was considered, including consideration of possibly high risk stents, but he had declined the intervention. Ejection fraction reportedly was 10-15%. There was no defibrillator or LifeVest arrangement. It appears that patient and his have been getting in touch to try to make arrangements for palliative care, not yet hospice. Per discussion with him and his they do understand that he is at severe risk of cardiac complications, severe life-threatening arrhythmia, other complications including organ hypoperfusion, low output failure with additional organ failure, cardiogenic shock, other complications including elevated risk of . From speaking with both of them, patient defers resuscitation choices to his , but on discussion with both him they are in agreement that in case of cardiopulmonary arrest resuscitation would not have a high chance of success with very high chance of additional suffering. The do agree in case of shockable rhythm for administration of shock. His is going to get us the list of his medications and I am also requesting records from [facility] from his recent hospitalization. Requesting cardiology consultation. Monitor on telemetry. Check magnesium. Hold off further fluid resuscitation given severely diminished EF. He currently does not appear to have fluid retention apart from some noted ascites on liver ultrasound. (3) Liver dysfunction: Liver dysfunction of unknown duration. He did have significant shock, pressor requirement during hospitalization and July in [facility], it is unclear whether this transaminitis still improving from prior or is new. Albumin is noted low. We checked INR as well, INR is 6.41. Unknown home medications. Platelets low at 69. Discussed with him and his concern for possible progression to acute liver failure, however, we will reassess liver parameters. Continue midodrine. Levophed added. Maintain MAP 65 mmHg. Reassess liver parameters, platelets, INR. Will check baseline ammonia. (4) ESRD (end stage renal disease): Discussed with interventional radiologist, appreciate consultation. He normally gets dialysis TTS. Has a left-sided chest dialysis catheter. (5) Thrombocytopenia: With liver dysfunction, possibly due to his severe cardiomyopathy, prior platelets do appear to be normal. Unknown home medications, his went to get his medication list. SCDs for VTE prophylaxis for now, with elevated INR, no home medications, hold off anticoagulant for now, reassess blood counts. (6) Opacities of both lungs present on chest x-ray: Possibly atelectasis, possibly pneumonia although somewhat less likely he does not have respiratory symptoms, no fever, no leukocytosis. Additionally with severe cardiomyopathy as per history obtained from his . Hold off any additional IV fluids, may be prone to pleural effusions. Monitor CATHI. Add incentive spirometer. Monitor oxygenation. Plan BPH: Pending home medication list. Anemia: Hemoglobin is better than previously at 11.1. Recheck blood counts. His is going to call in or bring his home medication list, she is trying to do so sometime tonight if she can, please review and resume as appropriate once available. Attestations 2 Medical Necessity Statement*: awaiting rescords from outside hospital, GOC discussion, continue pressor support, HD today Coding Level of Care Code Acute Code for Chg Fwd High MDM includes number and complexity of problems actively addressed during encounter, amount and/or complexity of data reviewed/ordered and described risk of complication, morbidity or mortality of management as documented Diagnoses Hypotension I95.9 Ischemic cardiomyopathy I25.5 Liver dysfunction K76.89 ESRD (end stage renal disease) N18.6 Thrombocytopenia D69.6 Opacities of both lungs present on chest x-ray R91.8
--- NOTE | 2023-09-19 19:21 | PC.NURSE ---
Shift summary; Pt rested in bed throughout shift. Sinus, first degree block on monitor. Pt afebrile. He has been chilly for most of the shift, blankets piled on. Hemodialysis done today, goal was 1500ml. Levophed restarted during dialysis, now at 4mcg/min. He also received 3 bags of albumin during HD. He as incontinent of stool this evening. Anuria noted. his has sat at bedside most of the day.
[2023-09-19] MEDS: midodrine 5 mg TABLET 10 MG PO (21:04)
[2023-09-20] VITALS (71 sets, daily range): BP systolic 75–152; BP diastolic 34–121; PULSE 68–122; RESP 9–34; TEMP 36.2–37.1; O2SAT 90–100
[2023-09-20] MEDS: norepinephrine 4 MG/250 ML BAG 7.5 MG IV (00:15)
[2023-09-20] MEDS: linezolid premix 600 MG/300 ML PREMIX 300 MG IV ×2 (05:08→17:08)
[2023-09-20 05:35] LABS: Basophils % 0.1 %; Eosinophils # 0.2 10^3/uL (0.0-0.8); Hematocrit 33.6 % (37-53); Lymphocytes # 1.1 10^3/uL (0.8-4.8); Lymphocytes % 13.4 %; Mean Corpuscular Hemoglobin 31.2 pg (27-33); Mean Corpuscular Volume 100.9 fl (82-101); Mean Platelet Volume 13.3 fL (7.4-10.4); Monocytes # 0.7 10^3/uL (0.2-0.9); Monocytes % 8.2 %; Neutrophils # 6.22 10^3/uL (1.8-7.7); Neutrophils % 75.8 %; Nucleated Red Blood Cells % 0 %; Platelet Count 73 10^3/cmm (157-399); Red Blood Count 3.33 10^6/uL (3.85-5.65); Red Cell Distribution Width 23.4 % (12.1-15.1)
[2023-09-20 05:43] LABS: INR 3.41 (0.8-1.2)
[2023-09-20 05:59] LABS: Alanine Aminotransferase 286 U/L (0-41); Albumin Level 2.9 g/dL (3.5-5.2); Alkaline Phosphatase 251 U/L (40-130); Blood Urea Nitrogen 32 mg/dL (8-23); Calcium 8.7 mg/dL (8.5-10.5); Carbon Dioxide 22 mmol/L (22-29); Chloride 96 mmol/L (98-107); Globulin 2.9 g/dL (1.3-4.6); Glomerular Filtration Rate 19.7 mL/min (90-130); Glucose 97 mg/dL (65-115); Magnesium 2.1 mg/dL (1.7-2.3); Osmolality Calculated 285 mOsm/kg (285-295); Sodium 134 mmol/L (136-145); Total Bilirubin 2.3 mg/dL (0.15-1.2); Total Protein 5.8 g/dL (6.6-8.7)
[2023-09-20 06:03] LABS: Creatinine Clr Calc Pharmacy 21.0146
[2023-09-20 06:04] LABS: Anion Gap 21.1 (5-19); Aspartate Amino Transferase 250 U/L (0-40); Potassium 5.1 mmol/L (3.5-5.1)
[2023-09-20] MEDS: piperacillin-tazobactam 3.375 GM in sodium chloride 0.9% (plus) 50 ML IV ×2 (06:13→18:16)
--- NOTE | 2023-09-20 07:21 | P.PN_ITS ---
Subjective 2 Subjective: Kashmir is 62 and has at least a couple end-stage illnesses. He has a history of end-stage renal disease on dialysis. He also has an end-stage cardiomyopathy with an ejection fraction around 10%. He apparently had a myocardial infarction in July and declined intervention. He was on Levophed for some time and his toes are gangrenous. He also has liver disease with elevated liver function tests, elevated INR, thrombocytopenia, anemia and hypoalbuminemia. He was admitted 2 days ago with weakness and hypotension. He is now on norepinephrine again and gets intravenous antibiotics. There has been some reluctance by he and his to except hospice care. Apparently he is on palliative care. He is awake and alert. He does not offer any pain problems. He is extremely weak and cannot move much on his own. He would like to get out of bed in a chair. Vitals/I&O/Wt Last Vital Signs Temp 98.4 F 09/20/23 03:57 Pulse 79 09/20/23 06:00 Resp 12 09/20/23 04:00 BP 79/66 09/20/23 04:00 Pulse Ox 99 09/20/23 04:00 O2 Del Method Nasal Cannula 09/20/23 04:00 O2 Flow Rate 4 09/20/23 04:00 09/19/23 09/20/23 09/20/23 22:59 06:59 14:59 Intake Total 1384.00 / 1960.438 436.187 / 2396.625 Output Total 2024 Balance -641.00 / -64.562 436.187 / 371.625 Weight last 48 hrs Weight 181 lb 3.52 oz Weight 181 lb 3.52 oz Weight 176 lb 4 oz Weight 176 lb 3 oz Physical Exam 2 Narrative: GENERAL: In general he looks comfortable at rest, cachectic HEENT: Exam within normal limits. NECK: Supple without jugular vein distention. The carotid upstroke is normal without bruits. BACK: Exam normal. LUNGS: Clear. HEART: Regular rate and rhythm. ABDOMEN: Benign without organomegaly or tenderness. EXTREMITIES: No edema. Dry gangrene toes of both feet NEUROLOGIC: Exam normal. SKIN: Unremarkable. Data 09/20/23 04:40 09/20/23 04:40 Micro: Microbiology 09/18/23 18:57 Blood Culture - Preliminary Blood NEGATIVE TO DATE 09/18/23 18:42 Blood Culture - Preliminary Blood NEGATIVE TO DATE A&P Assessment and plan (1) Hypotension: (2) Ischemic cardiomyopathy: (3) Thrombocytopenia: (4) Transaminitis: (5) Liver dysfunction: (6) ESRD (end stage renal disease): (7) Sepsis: (8) Necrotic toes: (9) Decubitus ulcer: (10) Protein calorie malnutrition: (11) CAD (coronary artery disease): (12) Coagulopathy: Plan As the notes from yesterday stated, he is essentially at end-stage. No cardiac intervention is warranted. Hospice is recommended. Attestations 2 Medical Necessity Statement*: Hospitalization for management of multiple chronic end-stage issues. and Moderate Time for a total of 40 minutes, includes reviewing past or interval history, examining/interviewing patient, counseling patient/family/other support, updating patient/family/other support, discussing plan of care with staff, communicating with other healthcare providers and documenting encounter Diagnoses Hypotension I95.9 Ischemic cardiomyopathy I25.5 Thrombocytopenia D69.6 Transaminitis R74.01 Liver dysfunction K76.89 ESRD (end stage renal disease) N18.6 Sepsis A41.9 Necrotic toes I96 Decubitus ulcer L89.90 Protein calorie malnutrition E46 CAD (coronary artery disease) I25.10 Coagulopathy D68.9
[2023-09-20] MEDS: cholecalciferol (vitamin D3) 1,000 unit Tablet 1000 UNIT PO (07:49)
[2023-09-20] MEDS: midodrine 5 mg TABLET 10 MG PO ×3 (07:49→21:52)
[2023-09-20] MEDS: b-complex-vitamin c Tablet 1 EACH PO (07:49)
[2023-09-20] MEDS: ondansetron 2 mg/ML SDV 2 mL 4 MG IVP (07:49)
--- NOTE | 2023-09-20 09:40 | PC.NURSE ---
Pt stated he has been in the [employer] for [employer]. He was able to answer person, place, year questions correctly.
--- NOTE | 2023-09-20 10:50 | PC.NURSE ---
Levophed: Unable to wean levophed off due to BP. 76/58. Restarted LEvophed back at 2mcg/min. Dr Alford made rounds.
--- NOTE | 2023-09-20 11:02 | P.PN_ITS ---
Subjective 2 Subjective: weak, sob, on pressors, nausea, chest discomfort, edema, eg pains Medications: Reviewed: Yes Medication Review Details: Current Medications Acetaminophen (Acetaminophen 325 Mg Tablet) 650 mg PO Q6H PRN PRN Reason: Mild/Mod Pain Or Temp >/= 101 Piperacillin Sod/Tazobactam (Sod 3.375 gm/ Sodium Chloride) 50 mls @ 12.5 mls/hr IV Q12H FLOYD; Protocol Last Infusion: 09/20/23 10:15 Dose: Infused Linezolid (Zyvox Premix) 600 mg in 300 mls @ 300 mls/hr IV Q12H FLOYD; Protocol Last Infusion: 09/20/23 06:22 Dose: Infused Albumin Human (Albumin) 12.5 gm in 50 mls @ 60 mls/hr IV PRN PRN PRN Reason: Hypotension and/or symptomatic Last Infusion: 09/20/23 00:15 Dose: Infused Norepinephrine Bitartrate (Levophed) 4 mg in 250 mls @ 0 mls/hr IV .Q0M FLOYD; Protocol Last Titration: 09/20/23 10:50 Dose: 2 mcg/min, 7.5 mls/hr Midodrine (Midodrine 5 Mg Tablet) 10 mg PO TID FLOYD Last Admin: 09/20/23 07:49 Dose: 10 mg Multivitamins (Y-Wpwdace-Aefyhpv C Tablet) 1 each PO DAILY FLOYD Last Admin: 09/20/23 07:49 Dose: 1 each Ondansetron HCl (Ondansetron 2 Mg/Ml Sdv 2 Ml) 4 mg IVP Q8H PRN PRN Reason: vomiting, or N/V if npo Last Admin: 09/20/23 07:49 Dose: 4 mg Vitamin D (Cholecalciferol (Vitamin D3) 1,000 Unit Tablet) 1,000 unit PO DAILY FLOYD Last Admin: 09/20/23 07:49 Dose: 1,000 unit Vitals/I&O/Wt Last Vital Signs Temp 97.1 F L 09/20/23 07:45 Pulse 75 09/20/23 09:45 Resp 21 H 09/20/23 09:45 BP 91/68 09/20/23 09:45 Pulse Ox 92 09/20/23 09:45 O2 Del Method Oxymask 09/20/23 09:45 O2 Flow Rate 2 09/20/23 09:45 09/19/23 09/20/23 09/20/23 22:59 06:59 14:59 Intake Total 1384.00 / 2410.438 436.187 / 2846.625 344.000 / 344.000 Output Total 2024 Balance -641.00 / 385.438 436.187 / 821.625 344.000 / 344.000 Weight last 48 hrs Weight 82.2 kg Weight 82.2 kg Weight 79.946 kg Weight 79.917 kg Physical Exam 2 Narrative: ill appearing in bed, using nc 02 on levophed heent- nc/at, eomi, anicteric neck supple lungs dull bases and crackles b/l heart reg +ÁLVARO abd soft, +BS ext + b/l leg edema, ischemic toes neuro- a,a, o x 2+ access- left IJ permacath examined by RN- telehealth visit Data 09/20/23 04:40 09/20/23 04:40 Micro: Microbiology 09/18/23 18:57 Blood Culture - Preliminary Blood NEGATIVE TO DATE 09/18/23 18:42 Blood Culture - Preliminary Blood NEGATIVE TO DATE A&P Assessment and plan (1) ESRD (end stage renal disease): 62 yr old man 1. ESRD s/p HD yesterday, required preeors. I explained to the pt that w/ his low EF and hypotension, dialysis is very difficult. he states that he understands and requests that we continue to attempt dialysis. he says that he feels better w/ HD. -will attempt HD today on 2 k bath, remove 1.5 l- 3 hrs 2. PNA - renal dose abx 3. CAD and cardiomyopathy- consider repat echo to assess for possible pericardial effusion. pressors per medicine. however, he has ischemic toes elevated BNP noted 4. thrombocytopenia, inc LFTs, and elevated INR - slowly improving. - liver failure can be from Cardiomyopathy, hypotension. review meds. liver us reveals echogenic liver, ascites, cholelithiasis w/o cholecystitis consider tapping ascites to evaluate for SBP 5. anemia- ferritin 2080- can use epo if hgb goes under 10 6.mild hyponatremia- send urine for ua and cx. place burger 7. replace vit d and give zemplar 8. PVD-ischemic toes seen and examined w/ rN- telehealth visit informed consent obtained for telehealth and for hemodialysis discussed w/ pt and RN Plan see above Attestations 2 Medical Necessity Statement*: severe CM, resp distress, ESRD Time Spent in Patient Care: Greater than 35 minutes Coding Level of Care Code Acute Code for Chg Fwd Diagnoses ESRD (end stage renal disease) N18.6
--- NOTE | 2023-09-20 13:44 | P.PN_ITS ---
Subjective 2 Subjective: He struggling with the decision about whether or not to continue further dialysis. On 1 hand he wishes to go home with palliative and continue dialysis, however realizes that it will be a recurrent cycle of readmissions if he continues to be hypotensive at dialysis. He has considered stopping dialysis which would mean transition to hospice. and him are deciding next steps and whether they want to make this transition Medications: Reviewed: Yes Medication Review Details: Current Medications Acetaminophen (Acetaminophen 325 Mg Tablet) 650 mg PO Q6H PRN PRN Reason: Mild/Mod Pain Or Temp >/= 101 Piperacillin Sod/Tazobactam (Sod 3.375 gm/ Sodium Chloride) 50 mls @ 12.5 mls/hr IV Q12H FLOYD; Protocol Last Infusion: 09/20/23 10:15 Dose: Infused Linezolid (Zyvox Premix) 600 mg in 300 mls @ 300 mls/hr IV Q12H FLOYD; Protocol Last Infusion: 09/20/23 06:22 Dose: Infused Albumin Human (Albumin) 12.5 gm in 50 mls @ 60 mls/hr IV PRN PRN PRN Reason: Hypotension and/or symptomatic Last Infusion: 09/20/23 00:15 Dose: Infused Norepinephrine Bitartrate (Levophed) 4 mg in 250 mls @ 0 mls/hr IV .Q0M FLOYD; Protocol Last Titration: 09/20/23 10:50 Dose: 2 mcg/min, 7.5 mls/hr Midodrine (Midodrine 5 Mg Tablet) 10 mg PO TID FLOYD Last Admin: 09/20/23 07:49 Dose: 10 mg Multivitamins (C-Yrowths-Dsrvodh C Tablet) 1 each PO DAILY FLOYD Last Admin: 09/20/23 07:49 Dose: 1 each Ondansetron HCl (Ondansetron 2 Mg/Ml Sdv 2 Ml) 4 mg IVP Q8H PRN PRN Reason: vomiting, or N/V if npo Last Admin: 09/20/23 07:49 Dose: 4 mg Vitamin D (Cholecalciferol (Vitamin D3) 1,000 Unit Tablet) 1,000 unit PO DAILY FLOYD Last Admin: 09/20/23 07:49 Dose: 1,000 unit Vitals/I&O/Wt Last Vital Signs Temp 97.1 F L 09/20/23 07:45 Pulse 75 06/01/24 09:45 Resp 21 H 09/20/23 09:45 BP 91/68 09/20/23 09:45 Pulse Ox 92 09/20/23 09:45 O2 Del Method Oxymask 09/20/23 09:45 O2 Flow Rate 2 09/20/23 09:45 09/19/23 09/20/23 09/20/23 22:59 06:59 14:59 Intake Total 1384.00 / 2410.438 436.187 / 2846.625 344.000 / 344.000 Output Total 2024 Balance -641.00 / 385.438 436.187 / 821.625 344.000 / 344.000 Weight last 48 hrs Weight 82.2 kg Weight 82.2 kg Weight 79.946 kg Weight 79.917 kg Physical Exam 2 Narrative: General: No acute distress, AO x3 HEENT: PERRLA, pupils bilaterally equal and reactive, pallors not present Chest: Normal vesicular breath sounds, no added sounds, equal good air entry bilaterally CVS: S1-S2 regular, no murmurs, no tachycardia, no gallops, no rubs Abdomen: Soft, nontender, no organomegaly, bowel sounds present Neuro: No focal deficits, no facial deformity, AO x3, power 5/5 in all limbs Extremities: gangrenous toes B/L Data 09/20/23 04:40 09/20/23 04:40 Micro: Microbiology 09/18/23 18:57 Blood Culture - Preliminary Blood NEGATIVE TO DATE 09/18/23 18:42 Blood Culture - Preliminary Blood NEGATIVE TO DATE A&P Assessment and plan (1) Hypotension: Generalized weakness, hypotension after dialysis. Per discussion with him and history obtained from his he has had issues with soft blood pressures ever since being in the hospital back in July. Has been taking midodrine 3 times daily. Increased dose of midodrine to 10 mg 3 times a day reviewed vitals, CBC, INR, CMP, lactic acid, CK, NT-proBNP, EKG, no sign of acute [place] on my interpretation, pending official read. Reviewed chest x-ray, liver ultrasound. appreciate cardiology consultation with regards to severe cardiomyopathy. Discussed with patient and his . Hypotensive, possible cardiogenic shock. Continue Levophed, uptitrate midodrine Records are also requested from [facility] in [place]. Lower chance of sepsis , without fever, no leukocytosis, although does have some basilar infiltrates on chest x-ray. Lactic acidosis but suspect due to cardiogenic shock. For now empirically on Zosyn (2) Ischemic cardiomyopathy: From history obtained from patient's it seems that during hospitalization in July where he had a difficult hospital course after [place] with shock, requiring pressors, with complications with worsening renal failure, requiring to restart dialysis, with dry gangrene of his toes. From history obtained from his with him confirming, intervention was considered, including consideration of possibly high risk stents, but he had declined the intervention. Ejection fraction reportedly was 10-15%. There was no defibrillator or LifeVest arrangement. It appears that patient and his have been getting in touch to try to make arrangements for palliative care, not yet hospice. Per discussion with him and his they do understand that he is at severe risk of cardiac complications, severe life-threatening arrhythmia, other complications including organ hypoperfusion, low output failure with additional organ failure, cardiogenic shock, other complications including elevated risk of . From speaking with both of them, patient defers resuscitation choices to his , but on discussion with both him they are in agreement that in case of cardiopulmonary arrest resuscitation would not have a high chance of success with very high chance of additional suffering. The do agree in case of shockable rhythm for administration of shock. His is going to get us the list of his medications and I am also requesting records from [facility] from his recent hospitalization. Requesting cardiology consultation. Monitor on telemetry. Check magnesium. Hold off further fluid resuscitation given severely diminished EF. He currently does not appear to have fluid retention apart from some noted ascites on liver ultrasound. (3) Liver dysfunction: Liver dysfunction of unknown duration. He did have significant shock, pressor requirement during hospitalization and July in [facility], it is unclear whether this transaminitis still improving from prior or is new. Albumin is noted low. We checked INR as well, INR is 6.41. Unknown home medications. Platelets low at 69. Discussed with him and his concern for possible progression to acute liver failure, however, we will reassess liver parameters. Continue midodrine. Levophed added. Maintain MAP 65 mmHg. Reassess liver parameters, platelets, INR. Will check baseline ammonia. (4) ESRD (end stage renal disease): Discussed with patient care specialist, appreciate consultation. He normally gets dialysis TTS. Has a left-sided chest dialysis catheter. (5) Thrombocytopenia: With liver dysfunction, possibly due to his severe cardiomyopathy, prior platelets do appear to be normal. Unknown home medications, his went to get his medication list. SCDs for VTE prophylaxis for now, with elevated INR, no home medications, hold off anticoagulant for now, reassess blood counts. (6) Opacities of both lungs present on chest x-ray: Possibly atelectasis, possibly pneumonia although somewhat less likely he does not have respiratory symptoms, no fever, no leukocytosis. Additionally with severe cardiomyopathy as per history obtained from his . Hold off any additional IV fluids, may be prone to pleural effusions. Monitor CATHI. Add incentive spirometer. Monitor oxygenation. Plan BPH: Pending home medication list. Anemia: Hemoglobin is better than previously at 11.1. Recheck blood counts. His is going to call in or bring his home medication list, she is trying to do so sometime tonight if she can, please review and resume as appropriate once available. Plan for today: September 20, 2023: He struggling with the decision about whether or not to continue further dialysis. On 1 hand he wishes to go home with palliative and continue dialysis, however realizes that it will be a recurrent cycle of readmissions if he continues to be hypotensive at dialysis. He has considered stopping dialysis which would mean transition to hospice. and him are deciding next steps and whether they want to make this transition. For today, they wish to proceed with HD and then decide how he feels. Continue norepinephrine infusion at 2mch, continue midodrine 10mg TID. Reviewed cardiology consult- poor prognosis Attestations 2 Medical Necessity Statement*: HD today. GOC discussions . continue pressors Coding Level of Care Code Acute Code for Chg Fwd High MDM includes number and complexity of problems actively addressed during encounter, amount and/or complexity of data reviewed/ordered and described risk of complication, morbidity or mortality of management as documented Diagnoses Hypotension I95.9 Ischemic cardiomyopathy I25.5 Liver dysfunction K76.89 ESRD (end stage renal disease) N18.6 Thrombocytopenia D69.6 Opacities of both lungs present on chest x-ray R91.8
--- NOTE | 2023-09-20 16:26 | PC.NURSE ---
Dr Dickey notified via secure messaging that Pt unable to complete dialysis today. The were only able to net 500ml off and had to quit eary. Pt having alot of PVCs. Levophed at 10mcg/min.
[2023-09-20] MEDS: norepinephrine 4 MG/250 ML BAG 37.5 MG IV (17:17)
[2023-09-21] VITALS (31 sets, daily range): BP systolic 70–104; BP diastolic 44–67; PULSE 0–86; RESP 10–40; TEMP 36.4; O2SAT 83–100; BMI 24.3
[2023-09-21 00:40] LABS: Bilirubin Urine 1+ (Negative); Blood Urine 3+ (Negative); Glucose Urine UA Norm (Normal); Ketones Urine 1+ (Negative); Leukocyte Esterase Urine Trace (Negative); Nitrate Urine Positive (Negative); Protein Urine 3+ (Negative); Specific Gravity, Urine 1.005 (1.005-1.030); Urine Appearance Clear (CLEAR); Urine Color Dark Yellow (Yellow); Urobilinogen Urine Neg (Negative); pH Urine 7 (5-7)
[2023-09-21 00:41] LABS: Add Urine Culture? Yes; Add Urine Microscopic? YES; Bacteria Urine 2+ /hpf; Potassium, Radom Urine 81 mmol/L; RBC Urine 0-4 /hpf (0-2); Squamous Epithelial Cell Urine 0-4 /hpf (0-5); Urine Creatinine 80 mg/dL (39-259); Urine Random Chloride 24 mmol/L; Urine Random Sodium 31 mmol/L
[2023-09-21] MEDS: linezolid premix 600 MG/300 ML PREMIX 300 MG IV (05:08)
[2023-09-21 05:10] LABS: Basophils % 0.1 %; Eosinophils # 0.1 10^3/uL (0.0-0.8); Eosinophils % 1.4 %; Hematocrit 34.4 % (37-53); Lymphocytes # 1.2 10^3/uL (0.8-4.8); Lymphocytes % 15.4 %; Mean Corpuscular HGB Conc 30.5 g/dL (30-55); Mean Corpuscular Hemoglobin 31.3 pg (27-33); Mean Corpuscular Volume 102.4 fl (82-101); Mean Platelet Volume 13.9 fL (7.4-10.4); Monocytes # 0.7 10^3/uL (0.2-0.9); Neutrophils # 5.74 10^3/uL (1.8-7.7); Neutrophils % 73.6 %; Nucleated Red Blood Cells % 0 %; Platelet Count 72 10^3/cmm (157-399); Red Blood Count 3.36 10^6/uL (3.85-5.65); Red Cell Distribution Width 23.5 % (12.1-15.1)
[2023-09-21 05:21] LABS: INR 2.86 (0.8-1.2)
[2023-09-21 05:27] LABS: Alanine Aminotransferase 251 U/L (0-41); Albumin Level 2.6 g/dL (3.5-5.2); Alkaline Phosphatase 251 U/L (40-130); Anion Gap 19.7 (5-19); Aspartate Amino Transferase 182 U/L (0-40); Blood Urea Nitrogen 31 mg/dL (8-23); Calcium 8.5 mg/dL (8.5-10.5); Carbon Dioxide 23 mmol/L (22-29); Chloride 96 mmol/L (98-107); Creatinine Clr Calc Pharmacy 24.8819; Globulin 3.5 g/dL (1.3-4.6); Glomerular Filtration Rate 18.4 mL/min (90-130); Glucose 92 mg/dL (65-115); Magnesium 2.1 mg/dL (1.7-2.3); Osmolality Calculated 284 mOsm/kg (285-295); Potassium 4.7 mmol/L (3.5-5.1); Sodium 134 mmol/L (136-145); Total Protein 6.1 g/dL (6.6-8.7)
[2023-09-21] MEDS: piperacillin-tazobactam 3.375 GM in sodium chloride 0.9% (plus) 50 ML IV (06:05)
--- NOTE | 2023-09-21 07:02 | P.PN_ITS ---
Subjective 2 Subjective: weak, lethargic, on fm o2, on increased dose of levophed. poor appetite. +GUNN Medications: Reviewed: Yes Medication Review Details: Current Medications Acetaminophen (Acetaminophen 325 Mg Tablet) 650 mg PO Q6H PRN PRN Reason: Mild/Mod Pain Or Temp >/= 101 Piperacillin Sod/Tazobactam (Sod 3.375 gm/ Sodium Chloride) 50 mls @ 12.5 mls/hr IV Q12H [facility]; Protocol Last Admin: 09/21/23 06:05 Dose: 12.5 mls/hr Linezolid (Zyvox Premix) 600 mg in 300 mls @ 300 mls/hr IV Q12H [facility]; Protocol Last Admin: 09/21/23 05:08 Dose: 300 mls/hr Albumin Human (Albumin) 12.5 gm in 50 mls @ 60 mls/hr IV PRN PRN PRN Reason: Hypotension and/or symptomatic Last Infusion: 09/20/23 00:15 Dose: Infused Norepinephrine Bitartrate (Levophed) 4 mg in 250 mls @ 0 mls/hr IV .Q0M [facility]; Protocol Last Titration: 09/21/23 05:13 Dose: 0 mcg/min, 0 mls/hr Albumin Human (Albumin) 12.5 gm in 50 mls @ 60 mls/hr IV PRN PRN PRN Reason: Hypotension and/or symptomatic Midodrine (Midodrine 5 Mg Tablet) 10 mg PO TID [facility] Last Admin: 09/20/23 21:52 Dose: 10 mg Multivitamins (V-Dcyvuqj-Mvqulmm C Tablet) 1 each PO DAILY [facility] Last Admin: 09/20/23 07:49 Dose: 1 each Ondansetron HCl (Ondansetron 2 Mg/Ml Sdv 2 Ml) 4 mg IVP Q8H PRN PRN Reason: vomiting, or N/V if npo Last Admin: 09/20/23 07:49 Dose: 4 mg Vitamin D (Cholecalciferol (Vitamin D3) 1,000 Unit Tablet) 1,000 unit PO DAILY [facility] Last Admin: 09/20/23 07:49 Dose: 1,000 unit Vitals/I&O/Wt Last Vital Signs Temp 97.5 F L 09/21/23 05:00 Pulse 77 09/21/23 05:50 Resp 20 H 09/21/23 05:00 BP 84/60 09/21/23 05:00 Pulse Ox 100 09/21/23 05:00 O2 Del Method Oxymask 09/21/23 05:00 O2 Flow Rate 2 09/21/23 05:00 09/20/23 09/21/23 09/21/23 22:59 06:59 14:59 Intake Total 1028.375 / 1699.500 69.250 / 1768.750 Output Total 70 / 70 Balance 1028.375 / 1699.500 -0.750 / 1698.750 Weight last 48 hrs Weight 81.363 kg Weight 82.2 kg Weight 82.2 kg Physical Exam 2 Narrative: ill appearing in bed, FM 02 on levophed heent- nc/at, eomi, anicteric neck supple lungs dull bases and crackles b/l heart reg +ÁLVARO abd soft, +BS ext + b/l leg edema, ischemic toes neuro- a,a, o x 3 access- left IJ permacath examined by RN- telehealth visit Data 09/21/23 04:13 09/21/23 04:13 A&P Assessment and plan (1) ESRD (end stage renal disease): 62 yr old man 1. ESRD s/p HD last 2 days/ Pressor requirement is increasing -he did not tolerate HD well yesterday. he is not sure if he wants hospice or palliative care. I explained to the pt that w/ his low EF and hypotension, dialysis is very difficult. In his current condition, he will not tolerate HD out of the ICU. If he decvides to stop dialysis, that would be an appropriate decision given his severe cardiomyopathy 2. PNA - renal dose abx 3. CAD and cardiomyopathy- consider repat echo to assess for possible pericardial effusion. pressors per medicine. however, he has ischemic toes elevated BNP noted -cardiology noted. severe cardiogenic shock 4. thrombocytopenia, inc LFTs, and elevated INR - slowly improving. - liver failure can be from Cardiomyopathy, hypotension. review meds. liver us reveals echogenic liver, ascites, cholelithiasis w/o cholecystitis consider tapping ascites to evaluate for SBP 5. anemia- ferritin 2080- can use epo if hgb goes under 10 6.mild hyponatremia- stable 7. replace vit d and give zemplar 8. PVD-ischemic toes seen and examined w/ rN- telehealth visit informed consent obtained for telehealth and for hemodialysis discussed w/ pt and RN Plan see above Attestations 2 Medical Necessity Statement*: pressor dependent cardiogenic shock, esrd, resp distress Coding Level of Care Code Acute Code for Chg Fwd Diagnoses ESRD (end stage renal disease) N18.6
--- NOTE | 2023-09-21 07:44 | PC.NURSE ---
pt awake alert this am seen by nephrology and is requesting to go home on hospice today ..
[2023-09-21] MEDS: cholecalciferol (vitamin D3) 1,000 unit Tablet 1000 UNIT PO (08:35)
[2023-09-21] MEDS: midodrine 5 mg TABLET 10 MG PO ×2 (08:35→14:30)
[2023-09-21] MEDS: b-complex-vitamin c Tablet 1 EACH PO (08:35)
--- NOTE | 2023-09-21 09:28 | PC.NURSE ---
Dr Giraldo here exam pt no change orders
--- NOTE | 2023-09-21 09:32 | P.PN_ITS ---
Subjective 2 Subjective: He is unchanged this morning. His INR is down to 2.86. BUN and creatinine are 31 and 3.4. An attempt was made at dialysis yesterday but he developed hypotension. Norepinephrine was reinstituted and increased. Today he is off the norepinephrine. Transaminases are still elevated but less so. Vitals/I&O/Wt Last Vital Signs Temp 97.5 F L 09/21/23 05:00 Pulse 76 09/21/23 08:30 Resp 14 09/21/23 08:30 BP 85/67 09/21/23 06:30 Pulse Ox 96 09/21/23 08:30 O2 Del Method Oxymask 09/21/23 05:00 O2 Flow Rate 2 09/21/23 05:00 09/20/23 09/21/23 09/21/23 22:59 06:59 14:59 Intake Total 1028.375 / 1699.500 69.250 / 1768.750 400 / 400 Output Total 70 / 70 Balance 1028.375 / 1699.500 -0.750 / 1698.750 400 / 400 Weight last 48 hrs Weight 179 lb 6 oz Weight 181 lb 3.52 oz Weight 181 lb 3.52 oz Physical Exam 2 Narrative: GENERAL: In general he is awake and alert and conversant. Cachectic and looks chronically ill HEENT: Exam within normal limits. NECK: Supple without jugular vein distention. The carotid upstroke is normal without bruits. BACK: Exam normal. LUNGS: Clear. HEART: Regular rate and rhythm. ABDOMEN: Benign without organomegaly or tenderness. EXTREMITIES: No edema. Dry gangrene of both feet NEUROLOGIC: Exam normal. SKIN: Unremarkable. Data 09/21/23 04:13 09/21/23 04:13 A&P Assessment and plan (1) Hypotension: (2) Ischemic cardiomyopathy: (3) Thrombocytopenia: (4) CAD (coronary artery disease): (5) Coagulopathy: (6) Protein calorie malnutrition: (7) Transaminitis: (8) ESRD (end stage renal disease): (9) Obstructive uropathy: (10) Elevated PSA: Plan Unchanged. Recommend hospice with discontinuation of hemodialysis. Attestations 2 Medical Necessity Statement*: Hospitalization for management of multiple end-stage problems. and Moderate Time for a total of 30 minutes, includes reviewing past or interval history, examining/interviewing patient, counseling patient/family/other support, updating patient/family/other support, discussing plan of care with staff, communicating with other healthcare providers and documenting encounter Diagnoses Hypotension I95.9 Ischemic cardiomyopathy I25.5 Thrombocytopenia D69.6 CAD (coronary artery disease) I25.10 Coagulopathy D68.9 Protein calorie malnutrition E46 Transaminitis R74.01 ESRD (end stage renal disease) N18.6 Obstructive uropathy N13.9 Elevated PSA R97.20
--- NOTE | 2023-09-21 11:28 | P.DS_ITS ---
Discharge Providers Date of Admission: 09/18/23 20:50 Date of Discharge: September 21, 2023 Attending Provider at Admission: Cale Wallace Attending Provider at Discharge: Alma Dickey MD Primary Care Provider: Robson Gomez MD Diagnoses at Discharge Discharge Diagnosis (1) Hypotension: Status: Acute (2) Ischemic cardiomyopathy: Status: Acute (3) Thrombocytopenia: Status: Acute (4) CAD (coronary artery disease): Status: Acute (5) Coagulopathy: Status: Acute (6) Protein calorie malnutrition: Status: Acute (7) Transaminitis: Status: Acute (8) ESRD (end stage renal disease): Status: Acute (9) Obstructive uropathy: Status: Acute (10) Elevated PSA: Status: Acute Reason for Visit Reason for Visit: general weakness Hospital Course Hospital Course 62-year-old man who suffered a massive AR in July 2023, treated at outside hospital.? It appears his hospital course was complicated by development of ischemic cardiomyopathy, last known EF is at 10%.? Also suffered kidney failure therefore that resulted in dialysis.? He used to be on dialysis 2 years ago for obstructive uropathy but had since discontinued.? Needed to resume dialysis with this recent AR.? He also had dry gangrene of his feet, thought to be related to vasopressor use.? He had declined any interventions.? He had been considering palliative care and has this set up with [facility], however they were yet to have their first visit. Patient was currently admitted to [facility] with chief complaints of being hypotensive at dialysis.? Has remained hypotensive during the course of the admission.? He needed to be on continuous norepinephrine infusion alongside of midodrine 10 mg 3 times daily and albumin infusion.? Norepinephrine needed to be up to 10 mcg during dialysis. On September 19 dialysis was attempted with pressor support, however needed to be discontinued as patient started to develop multiple VPCs. It was unable to be completed. He was evaluated by cardiology, no further cardiac interventions were recommended, thought to have end-stage disease. Eventually after extensive goals of care discussion patient and his decided to transition care to hospice with discontinuation of dialysis. They wish to continue services with [facility]. Patient's confirms that [id number] and they have confirmed that patient will be transitioning to hospice with them. I have left messages with the [facility] office to confirm details, awaiting callback at the time of writing this note. Patient and would like to leave the hospital today. Physical Exam Narrative: General: No acute distress, AO x3 HEENT: PERRLA, pupils bilaterally equal and reactive, pallors not present Chest: Normal vesicular breath sounds, no added sounds, equal good air entry bilaterally CVS: S1-S2 regular, no murmurs, no tachycardia, no gallops, no rubs Abdomen: Soft, nontender, no organomegaly, bowel sounds present Neuro: No focal deficits, no facial deformity, AO x3, power 5/5 in all limbs Extremities: gangrenous toes B/L . Discharge Data Studies Completed and Pending Completed Studies During Hospitalization Category Date Time Status XR chest 1V portable [id number] Stat Exams 09/18/23 17:21 Completed US liver [id number] Stat Ultrasound 09/18/23 20:18 Completed Pending at discharge Category Date Time Status Blood Culture Stat Lab 09/18/23 18:57 Results Complete Blood Count w/Auto AM LABS Lab 09/22/23 04:00 Ordered Complete Blood Count w/Auto AM LABS Lab 09/23/23 04:00 Ordered Complete Blood Count w/Auto AM LABS Lab 09/24/23 04:00 Ordered Comprehensive Metabolic Panel AM LABS Lab 09/22/23 04:00 Ordered Comprehensive Metabolic Panel AM LABS Lab 09/23/23 04:00 Ordered Comprehensive Metabolic Panel AM LABS Lab 09/24/23 04:00 Ordered Magnesium AM LABS Lab 09/22/23 04:00 Ordered Magnesium AM LABS Lab 09/23/23 04:00 Ordered Magnesium AM LABS Lab 09/24/23 04:00 Ordered Phosphorus AM LABS Lab 09/22/23 04:00 Ordered Phosphorus AM LABS Lab 09/23/23 04:00 Ordered Phosphorus AM LABS Lab 09/24/23 04:00 Ordered Urine Culture Stat Lab 09/21/23 00:12 Received Radiology Impressions Chest X-Ray 09/18/23 17:21 IMPRESSION: Irregular opacities in the lung bases with small bilateral pleural effusions. Liver Ultrasound 09/18/23 20:18 IMPRESSION: 1. The liver is diffusely and heterogeneously increased in echogenicity consistent with hepatic parenchymal disease with no focal lesions identified. 2. Cholelithiasis without cholecystitis. 3. Abdominal ascites. Laboratory Results WBC 7.80 10^3/uL (3.29-11.43) 09/21/23 04:13 RBC 3.36 10^6/uL (3.85-5.65) L 09/21/23 04:13 Hgb 10.50 g/dL (11.27-16.99) L 09/21/23 04:13 Hct 34.4 % (37-53) L 09/21/23 04:13 MCV 102.4 fl (82-101) H 09/21/23 04:13 MCH 31.3 pg (27-33) 09/21/23 04:13 MCHC 30.5 g/dL (30-55) 09/21/23 04:13 RDW 23.5 % (12.1-15.1) H 09/21/23 04:13 Plt Count 72 10^3/cmm (157-399) L 09/21/23 04:13 MPV 13.9 fL (7.4-10.4) H 09/21/23 04:13 Neut % (Auto) 73.6 % 09/21/23 04:13 Lymph % (Auto) 15.4 % 09/21/23 04:13 Schleicher % (Auto) 9.0 % 09/21/23 04:13 Eos % (Auto) 1.4 % 09/21/23 04:13 Baso % (Auto) 0.1 % 09/21/23 04:13 Neut # (Auto) 5.74 10^3/uL (1.8-7.7) 09/21/23 04:13 Lymph # (Auto) 1.2 10^3/uL (0.8-4.8) 09/21/23 04:13 Schleicher # (Auto) 0.7 10^3/uL (0.2-0.9) 09/21/23 04:13 Eos # (Auto) 0.1 10^3/uL (0.0-0.8) 09/21/23 04:13 Baso # (Auto) 0.0 10^3/uL (0.0-0.1) 09/21/23 04:13 Nucleated RBC % (auto) 0 % 09/21/23 04:13 Nucleated RBCs # 0.0 /100WBC 09/21/23 04:13 PT 31.10 SECONDS (12.1-14.9) H 09/21/23 04:13 INR 2.86 (0.8-1.2) H 09/21/23 04:13 APTT 60.3 SECONDS (23.9-36.7) H 09/18/23 17:45 Sodium 134 mmol/L (136-145) L 09/21/23 04:13 Potassium 4.7 mmol/L (3.5-5.1) 09/21/23 04:13 Chloride 96 mmol/L (98-107) L 09/21/23 04:13 Carbon Dioxide 23 mmol/L (22-29) 09/21/23 04:13 Anion Gap 19.7 (5-19) H 09/21/23 04:13 BUN 31 mg/dL (8-23) H 09/21/23 04:13 Creatinine 3.4 mg/dL (0.7-1.2) H 09/21/23 04:13 GFR Calculation 18.4 mL/min (90-130) L 09/21/23 04:13 Glucose 92 mg/dL (65-115) 09/21/23 04:13 Calculated Osmolality 284 mOsm/kg (285-295) L 09/21/23 04:13 Lactic Acid 3.0 mmol/L (0.5-2.2) H 09/18/23 17:43 Lactic Acid (Sepsis) 2.6 mmol/L (0.5-2.2) H 09/18/23 20:51 Calcium 8.5 mg/dL (8.5-10.5) 09/21/23 04:13 Phosphorus 6.8 mg/dL (2.5-4.5) H 09/19/23 03:20 Magnesium 2.1 mg/dL (1.7-2.3) 09/21/23 04:13 Iron 44 ug/dL (59-158) L 09/19/23 03:20 TIBC 131 mcg/dl 09/19/23 03:20 % Saturation 33.5 % (20-50) 09/19/23 03:20 Unsat Iron Binding 87 ug/dL (112-347) L 09/19/23 03:20 Ferritin 2081 ng/mL (30-400) H 09/19/23 03:20 Total Bilirubin 2.0 mg/dL (0.15-1.2) H 09/21/23 04:13 AST 182 U/L (0-40) H 09/21/23 04:13 ALT 251 U/L (0-41) H 09/21/23 04:13 Alkaline Phosphatase 251 U/L (40-130) H 09/21/23 04:13 Ammonia 21 umol/L (16-60) 09/19/23 00:00 Creatine Kinase 665 U/L (39-308) H* 09/18/23 17:43 NT-Pro-B Natriuret Pep > 04586 pg/mL (0-125) H 09/18/23 17:43 Total Protein 6.1 g/dL (6.6-8.7) L 09/21/23 04:13 Albumin 2.6 g/dL (3.5-5.2) L 09/21/23 04:13 Globulin 3.5 g/dL (1.3-4.6) 09/21/23 04:13 25-OH Vitamin D Total 24 ng/mL (30-100) L 09/19/23 03:20 PTH Intact 685.7 pg/mL (15-65) H 09/19/23 03:20 Calcium (PTH Intact) 7.7 mg/dL (8.5-10.5) L 09/19/23 03:20 Urine Color Dark yellow (Yellow) 09/21/23 00:12 Urine Appearance Clear (CLEAR) 09/21/23 00:12 Urine pH 7 (5-7) 09/21/23 00:12 Ur Specific [place] 1.005 (1.005-1.030) 09/21/23 00:12 Urine Protein 3+ (Negative) H 09/21/23 00:12 Urine Glucose (UA) Norm (Normal) 09/21/23 00:12 Urine Ketones 1+ (Negative) H 09/21/23 00:12 Urine Blood 3+ (Negative) H 09/21/23 00:12 Urine Nitrate Positive (Negative) H 09/21/23 00:12 Urine Bilirubin 1+ (Negative) H 09/21/23 00:12 Urine Urobilinogen Neg mg/dL (Negative) 09/21/23 00:12 Ur Leukocyte Esterase Trace (Negative) H 09/21/23 00:12 Urine RBC 0-4 /hpf (0-2) H 09/21/23 00:12 Urine WBC 5-10 /hpf (0-5) H 09/21/23 00:12 Ur Squamous Epith Cells 0-4 /hpf (0-5) H 09/21/23 00:12 Amorphous Sediment Not Reportable 09/21/23 00:12 Urine Bacteria 2+ /hpf (NONE) H 09/21/23 00:12 Hyaline Casts 5-10 /lpf H 09/21/23 00:12 Ur Random Sodium 31 mmol/L 09/21/23 00:12 Ur Random Potassium 81 mmol/L 09/21/23 00:12 Ur Random Chloride 24 mmol/L 09/21/23 00:12 Urine Creatinine 80 mg/dL (39-259) 09/21/23 00:12 Hep Bs Antigen Non-reactive (Nonreactive) 09/18/23 17:43 Hep Bs Antibody > 1000.0 (11.5-1000) H 09/18/23 17:43 Hepatitis C Antibody Non-reactive (Nonreactive) 09/18/23 17:43 Vitals Last Vital Signs Temp 97.5 F L 09/21/23 11:12 Pulse 76 09/21/23 11:12 Resp 14 09/21/23 11:12 BP 85/67 09/21/23 06:30 Pulse Ox 96 09/21/23 11:12 O2 Del Method Oxymask 09/21/23 05:00 O2 Flow Rate 2 09/21/23 05:00 Discharge Plan Discharge Patient Disposition: Home Condition: Stable Prescriptions: New Ativan 1 mg tablet 1 mg PO Q8H PRN (Reason: anxiety) 4 Days Qty: 12 0RF Continued midodrine 10 mg Tablet 10 mg PO TID Rx Instructions: do not give last dose of day after 6PM or within 4 hrs of bedtime amiodarone 200 mg Tablet 200 mg PO DAILY Plavix 75 mg Tablet 75 mg PO DAILY Changed oxycodone 5 mg Tablet 5 mg PO Q6H PRN (Reason: Pain) 4 Days Qty: 20 0RF Discontinued folic acid 1 mg Tablet 1 mg PO DAILY atorvastatin tablet 40 mg PO DAILY apixaban 5 mg Tablet 5 mg PO BID melatonin 5 mg Tablet 6 mg PO BEDTIME PRN (Reason: Sleep) Discharge Orders: Discharge Order (Routine); Ordered 09/21/23 Ordered By: Alma Kathuria Referrals: Lwin,Robson, [Primary Care Provider] - Discharge Diet: Usual diet Discharge Activity: Resume usual activity Patient Instructions: Lorazepam (By mouth), Bleeding Disorders (DC), Opioid Safety, Pain Management Discharge Attestations Time Spent in Discharge Care*: greater than 30 min Status at Discharge: Cognitive status at discharge: cognitively intact , Behavioral status at discharge: cooperative , Quality Metrics Clinical Quality Measures [ No reported AMI, CVA or VTE this stay] Coding Level of Care Code Acute Code for Chg Fwd Diagnoses Hypotension I95.9 Ischemic cardiomyopathy I25.5 Thrombocytopenia D69.6 CAD (coronary artery disease) I25.10 Coagulopathy D68.9 Protein calorie malnutrition E46 Transaminitis R74.01 ESRD (end stage renal disease) N18.6 Obstructive uropathy N13.9 Elevated PSA R97.20
--- NOTE | 2023-09-21 16:41 | PC.NURSE ---
ambulance crew here loaded pt on [facility] notified hospice and at this time
== END 2023-09-21 17:53 | disposition hospice, home (50) | DRG 314 ==
LOC: ER 20:27 → ICU 21:23
PROVIDERS: Family Medicine; Internal Medicine Nephrology; Admitting Provider Internal Medicine; Emergency Provider Emergency Medicine; PCP Internal Medicine; Visit Provider Student in an Organized Health Care Education/Training Program
DX: I95.9 Hypotension, unspecified (principal); N18.6 End stage renal disease; D68.9 Coagulation defect, unspecified; E46 Unspecified protein-calorie malnutrition; E87.1 Hypo-osmolality and hyponatremia; I25.5 Ischemic cardiomyopathy; D69.6 Thrombocytopenia, unspecified; I25.10 Atherosclerotic heart disease of native coronary artery without angina pectoris; K76.89 Other specified diseases of liver; N13.9 Obstructive and reflux uropathy, unspecified; Z99.81 Dependence on supplemental oxygen; I73.9 Peripheral vascular disease, unspecified; I25.2 Old myocardial infarction; N40.0 Benign prostatic hyperplasia without lower urinary tract symptoms; D64.9 Anemia, unspecified; Z79.02 Long term (current) use of antithrombotics/antiplatelets; Z51.5 Encounter for palliative care; Z99.2 Dependence on renal dialysis
CPT/HCPCS: 36415; 71045; 76705; 80053; 81001; 82140; 82306; 82310; 82436; 82550; 82570; 82728; 83540; 83550; 83605; 83735; 83880; 83970; 84100; 84133; 84300; 85025; 85610; 85730; 86706; 86803; 87040; 87086; 87340; 90935; 93005; 96365; 96367; 96374; 96376; 99285; J2020; J2185; J2405; J2501; J2543; J7040; P9047; Q3014